=== PATIENT | male | born 1955 | race Caucasian/White ===

== ENCOUNTER → 2020-04-10 11:24 | Outpatient (BNVA) | payer MEDICARE, OTHER, SELFPAY | PROVIDERS: PCP Internal Medicine; Referring Provider Internal Medicine; Visit Provider Physician Assistant | DX: K44.9 Diaphragmatic hernia without obstruction or gangrene (principal); J44.9 Chronic obstructive pulmonary disease, unspecified | CPT/HCPCS: 99213 ==

== ENCOUNTER 2020-05-30 06:09 | Outpatient (REF) | payer MEDICARE, OTHER, SELFPAY ==
[2020-05-30 11:36] LABS: Alanine Aminotransferase 23 U/L (0-40); Albumin Level 4.3 g/dL (3.5-5.0); Alkaline Phosphatase 44 U/L (39-117); Anion Gap 13 (12-20); Aspartate Amino Transferase 19 U/L (5-37); Bilirubin Total 0.5 mg/dL (0.0-1.0); Blood Urea Nitrogen 9 mg/dL (9-16); Calcium 8.9 mg/dL (8.4-10.2); Carbon Dioxide 28 mmol/L (22-29); Chloride 97 mmol/L (96-108); Estimated Glomerular Filt Rate > 60; Glucose Fasting 150 mg/dL (60-99); Potassium 4.4 mmol/l (3.3-5.1); Sodium 134 mmol/L (135-145); Total Protein 7.4 g/dL (6.5-8.0)
[2020-05-30 11:54] LABS: Estimated Average Glucose 192 mg/dL; Hemoglobin A1c % 8.3 %
[2020-05-30 12:41] LABS: Creatinine Urine 134.73 mg/dL; Microalbum/Creatinine Ratio Ur 14.1 ug/mg cr
== END 2020-05-30 06:10 | disposition home or self-care (01) ==
LOC: HO.HMGCLDS 06:09
PROVIDERS: PCP Internal Medicine; Visit Provider Internal Medicine
DX: E11.9 Type 2 diabetes mellitus without complications (principal); I10 Essential (primary) hypertension; J42 Unspecified chronic bronchitis; R13.10 Dysphagia, unspecified
CPT/HCPCS: 80053; 82043; 83036

== ENCOUNTER → 2020-06-06 09:44 | Outpatient (BNVA) | payer MEDICARE, OTHER, SELFPAY | PROVIDERS: PCP Internal Medicine; Referring Provider Internal Medicine; Visit Provider Physician Assistant | DX: Z76.89 Persons encountering health services in other specified circumstances (principal) ==

== ENCOUNTER → 2020-06-07 08:52 | Outpatient (BNVA) | payer MEDICARE, OTHER, SELFPAY | PROVIDERS: PCP Internal Medicine; Referring Provider Internal Medicine; Visit Provider Physician Assistant | DX: Z13.89 Encounter for screening for other disorder (principal) | CPT/HCPCS: Q3014 ==

== ENCOUNTER 2020-08-10 09:24 | Day surgery (SDC) | payer MEDICARE, SELFPAY ==
[2020-06-09 12:29] VITALS: BMI 26.0
--- NOTE | 2020-08-09 09:29 | P.CONAN_ITS ---
Documented by User: Elena Rene 08/09/20 09:35 HPI - Anesthesia Eval Consult details Narrative: 65yo M for Upper Endoscopy PMFSH Active Problems Active Problems: All Active Problems (Updated 06/09/20 @ 12:25 by Deanne Argueta) Hiatal hernia (Acute) Lung nodule, solitary (Acute) HTN (hypertension) (Acute) Diabetes (Acute) Past Medical History Medical History COPD (chronic obstructive pulmonary disease) Diabetes Dysphagia Hard of hearing History of postoperative nausea and vomiting History of skull fracture HTN (hypertension) Lung nodule, solitary Family History Family History Son Diabetes 1.5, managed as type 2 Father No problems noted. Mother No problems noted. Daughter No problems noted. Brother Myocardial infarction Surgical History Surgical History (Updated 08/10/20 @ 11:01 by Subha Mei RN) History of esophagogastroduodenoscopy (EGD) History of knee replacement Hx of appendectomy Hx of cholecystectomy Hx of colonoscopy Previous back surgery Social History Social History (Updated 06/09/20 @ 12:29 by Deanne Argueta) Are you a primary doggy daycare activities director to a significant other at home: No Do you presently have visiting nurse or other home services: No Alcohol intake: current Alcohol intake frequency: holidays/special occasions only Smoking Status: Former smoker Smoking Quit Date: 2004 Use of substances other than those prescribed or required for medical reasons: No Advance Directives: No Advance Directives Information Provided: No Advance Directives on File: No Meds Allergies Allergy/AdvReac Type Severity Reaction Status Date / Time amoxicillin [AMOXICILLIN] Allergy Severe VOMITING Verified 06/09/20 12:27 Sulfa (Sulfonamide Allergy Severe HIVES Verified 06/09/20 12:27 Antibiotics) [SULFA (SULFONAMIDE ANTIBIOTICS)] lisinopril Allergy Unknown cough Verified 06/09/20 12:27 losartan Allergy Unknown hyperkalemi Verified 06/09/20 12:27 a moxifloxacin [From Avelox] Allergy Unknown Unknown Verified 06/09/20 12:27 pravastatin Allergy Unknown unknown Verified 06/05/20 08:43 rosuvastatin [Crestor] Allergy Unknown diarrhea Verified 06/05/20 08:43 sitagliptin [Januvia] Allergy Unknown stomach Verified 06/05/20 08:43 upset Home Medications Medication Instructions Recorded Confirmed Last Taken Type amlodipine 10 mg tablet 10 mg PO DAILY 04/10/20 06/09/20 Unknown History insulin glargine 100 unit/mL (3 26 unit SUBCUT QPM ml 04/10/20 06/09/20 Unknown History mL) subcutaneous pen metformin 1,000 mg tablet 1,000 mg PO BID 04/10/20 06/09/20 Unknown History bisoprolol 10 1 tab PO DAILY 06/06/20 06/09/20 Unknown History mg-hydrochlorothiazide 6.25 mg tablet [id number]-cohfptywm-mdvuaeot 1 puff INHALATION DAILY 06/09/20 06/09/20 Unknown History [Elicia Olson] Exam Exam Date and Time: August 09, 2020 0929 Height,Weight and Vital Signs: Height 6 ft Weight 87.09 kg Pertinent Lab Results Pertinent Lab Results: Laboratory Tests 02/22/20 05/30/20 06:10 06:19 WBC 10.5 Hgb 15.8 Hct 50.1 Plt Count 326 Sodium 134 L Potassium 4.4 Chloride 97 Carbon Dioxide 28 BUN 9 Creatinine 0.83 Assessment and Plan Assessment Anesthesia Assessment: Chart Reviewed Documented by User: Devon Bean MD 08/10/20 11:44 [facility] Past Medical History Medical History COPD (chronic obstructive pulmonary disease) Diabetes Dysphagia Hard of hearing History of postoperative nausea and vomiting History of skull fracture HTN (hypertension) Lung nodule, solitary Family History Family History Son Diabetes 1.5, managed as type 2 Father No problems noted. Mother No problems noted. Daughter No problems noted. Brother Myocardial infarction Surgical History Surgical History (Updated 08/10/20 @ 11:01 by Subha Mei, RN) History of esophagogastroduodenoscopy (EGD) History of knee replacement Hx of appendectomy Hx of cholecystectomy Hx of colonoscopy Previous back surgery Social History Social History (Updated 06/09/20 @ 12:29 by Deanne Argueta) Are you a primary doggy daycare activities director to a significant other at home: No Do you presently have visiting nurse or other home services: No Alcohol intake: current Alcohol intake frequency: holidays/special occasions only Smoking Status: Former smoker Smoking Quit Date: 2004 Use of substances other than those prescribed or required for medical reasons: No Advance Directives: No Advance Directives Information Provided: No Advance Directives on File: No Meds Allergies Allergy/AdvReac Type Severity Reaction Status Date / Time amoxicillin [AMOXICILLIN] Allergy Severe VOMITING Verified 06/09/20 12:27 Sulfa (Sulfonamide Allergy Severe HIVES Verified 06/09/20 12:27 Antibiotics) [SULFA (SULFONAMIDE ANTIBIOTICS)] lisinopril Allergy Unknown cough Verified 06/09/20 12:27 losartan Allergy Unknown hyperkalemi Verified 06/09/20 12:27 a moxifloxacin [From Avelox] Allergy Unknown Unknown Verified 06/09/20 12:27 pravastatin Allergy Unknown unknown Verified 06/05/20 08:43 rosuvastatin [Crestor] Allergy Unknown diarrhea Verified 06/05/20 08:43 sitagliptin [Januvia] Allergy Unknown stomach Verified 06/05/20 08:43 upset Home Medications Medication Instructions Recorded Confirmed Last Taken Type amlodipine 10 mg tablet 10 mg PO DAILY 04/10/20 06/09/20 Unknown History insulin glargine 100 unit/mL (3 26 unit SUBCUT QPM ml 04/10/20 06/09/20 Unknown History mL) subcutaneous pen metformin 1,000 mg tablet 1,000 mg PO BID 04/10/20 06/09/20 Unknown History bisoprolol 10 1 tab PO DAILY 06/06/20 06/09/20 Unknown History mg-hydrochlorothiazide 6.25 mg tablet ahrfeswkaly-etmgpvpll-vjoburns 1 puff INHALATION DAILY 06/09/20 06/09/20 Unknown History [Trelegy Ellipta] Exam Airway Mallampati Class: II TM Dist: >3cm Neck ROM: Full Loose/Missing/Broken Teeth: Yes (All caps and bridges) Heart: RRR Lungs: NL Assessment and Plan Assessment Anesthesia Assessment: Anesthesia Plan Discussed and Chart Reviewed Final Anesthetic Review NPO: Yes ASA Class: III Final Preanesthetic Review: No Changes in Pt Med Stat, Meds/Allgs Chart Reviewed, Consent Obtained/Reviewed and Anes Risks/Benef Reviewed Patient Risk: Intermediate Procedure Risk: Low Anesthetic Plan Anesthetic Plan: MAC: Disposition: Standard PACU
[2020-08-10 10:46] LABS: Glucose, Whole Blood 154 mg/dL (60-115)
[2020-08-10 11:03] VITALS: BP 160/76; PULSE 77; RESP 16; TEMP 36.3; O2SAT 97
[2020-08-10] MEDS: Lactated Ringers 1,000 ML 100 ML IVCONT (11:09)
--- NOTE | 2020-08-10 11:51 | P.HPSUR_ITS ---
Pre-Procedural Eval Section B Chief Complaint: dysphagia Relevant Family History (Specify if Yes): No Relevant Social History: None Present Medications: see Short Stay Collaborative assessment Medical History: Significant History (COPD (chronic obstructive pulmonary disease) Diabetes Dysphagia Hard of hearing History of postoperative nausea and vomiting History of skull fracture HTN (hypertension) Lung nodule, solitary) History of Previous Operations: Relevant previous surgery/procedure and date(s) (appendectomy, cholecystectomy, knee surgery) Allergies: Allergies Allergy/AdvReac Type Severity Reaction Status Date / Time amoxicillin [AMOXICILLIN] Allergy Severe VOMITING Verified 06/09/20 12:27 Sulfa (Sulfonamide Allergy Severe HIVES Verified 06/09/20 12:27 Antibiotics) [SULFA (SULFONAMIDE ANTIBIOTICS)] lisinopril Allergy Unknown cough Verified 06/09/20 12:27 losartan Allergy Unknown hyperkalemi Verified 06/09/20 12:27 a moxifloxacin [From Avelox] Allergy Unknown Unknown Verified 06/09/20 12:27 pravastatin Allergy Unknown unknown Verified 06/05/20 08:43 rosuvastatin [Crestor] Allergy Unknown diarrhea Verified 06/05/20 08:43 sitagliptin [Januvia] Allergy Unknown stomach Verified 06/05/20 08:43 upset Review of Systems Sugical H&P ROS: Negative: Constitution, Cardiovascular, Respiratory, Neurological, Psychiatric, Hem-Onc, Allergic/Immunologic, Gastrointestinal, Genitourinary, Musculoskeletal, Integumentary, Endocrine and E yes/Ears/Nose/Throat Exam Surgical H&P Exam: Normal: HEENT, Normal: Heart, Normal: Lungs, Normal: Extremities, Normal: Abdomen, Normal: Skin and Normal: Neurological Plan Diagnosis/Plan: Unchanged I have reviewed the history and physical and performed a pertinent physical examination on my patient. No changes have occurred unless specified.
--- NOTE | 2020-08-10 11:52 | PM.OP ---
Brief Operative Note Date of Service: 08/10/20 Pre-op diagnosis: dysphagia Post-op diagnosis: same Procedure: see op note Surgeon: Ave Knox MD Anesthesia: MAC Estimated blood loss (mL): 0 Condition: stable Disposition: PACU
--- NOTE | 2020-08-10 11:52 | W.PM.OPN ---
Operative Note Operative Note Date of Service: 08/10/20 Narrative: Procedure Description: EGD FLEXIBLE TRANSORAL UPPER GASTROINTESTINAL ENDOSCOPY UPPER ENDOSCOPY Consent: Indications for the procedure and potential complications of bleeding, perforation, reaction to medications and missed diagnosis were discussed with the patient and informed consent was obtained. Instrument: Olympus GIF H 190 J mid size upper endoscope Monitoring: Vital signs and clinical assessment, continuous EKG monitoring, Pulse oximetry, Carbon Dioxide monitoring and blood pressure monitoring were done throughout the procedure. Procedure: The patient was placed in the left lateral decubitis position and pre-procedure medications were administered and a bite block was placed. The endoscope was inserted into the mouth and advanced under direct vision to the third part of duodenum. A careful inspection was made as the upper endoscope was withdrawn including a retroflexed examination of the proximal stomach; Findings and interventions are described below. Findings: Larynx:normal Esophagus: GE junction at 40 cm, diaphragm hiatus at 40 cm, thickened schatzki ring with obstruction, and surrounding ulceration and esophagitis, A 12 mm balloon was used to strectch with tear noted. Higher dilation not done as a lot of resistance felt at 12 mm. Stomach: Patchy gastric erythema. Grade 2 flap valve on retroflexed examination of the cardia. Duodenum: Patchy bulbar duodenitis and swelling, had some difficulty getting to second part but got there and appeared normal. Intervention: Biopsies as noted above Impression/Findings: schatzki ring esophagitis and ulceration duodenitis PLAN: high dose PPi repeat EGD in about 4-8 weeks for further evaluation and possible repeat dilation
[2020-08-10 13:07] VITALS: BP 156/82; PULSE 77; RESP 18; TEMP 36.4; O2SAT 96
== END 2020-08-10 13:25 | disposition home or self-care (01) ==
PROVIDERS: PCP Internal Medicine; Visit Provider Internal Medicine Gastroenterology
PROC: 0DJ08ZZ Inspection of Upper Intestinal Tract, Via Natural or Artificial Opening Endoscopic (ICD-10-PCS; CPT 43235; principal; 2020-08-10 11:10)
DX: K22.2 Esophageal obstruction (principal); K22.10 Ulcer of esophagus without bleeding; K44.9 Diaphragmatic hernia without obstruction or gangrene; K29.80 Duodenitis without bleeding; J44.9 Chronic obstructive pulmonary disease, unspecified; E11.9 Type 2 diabetes mellitus without complications; I10 Essential (primary) hypertension; Z79.4 Long term (current) use of insulin; Z79.51 Long term (current) use of inhaled steroids; Z79.899 Other long term (current) drug therapy; Z90.49 Acquired absence of other specified parts of digestive tract; H91.92 Unspecified hearing loss, left ear; H91.8X1 Other specified hearing loss, right ear; Z96.653 Presence of artificial knee joint, bilateral
CPT/HCPCS: 43249; 82947; C1726

== ENCOUNTER → 2020-08-24 14:04 | Outpatient (BNVA) | payer MEDICARE, SELFPAY | PROVIDERS: PCP Internal Medicine; Visit Provider Physician Assistant | DX: Z13.89 Encounter for screening for other disorder (principal) | CPT/HCPCS: Q3014 ==

== ENCOUNTER 2020-09-05 06:18 | Outpatient (REF) | payer MEDICARE, SELFPAY ==
[2020-09-05 11:32] LABS: Estimated Average Glucose 209 mg/dL; Hemoglobin A1c % 8.9 %
[2020-09-05 11:34] LABS: Hematocrit 45.6 % (42-52); Hemoglobin 14.4 g/dl (14.0-18.0); Mean Corpuscular HGB Conc 31.6 g/dl (31.0-36.0); Mean Corpuscular Hemoglobin 27.5 pg (27.0-33.0); Mean Corpuscular Volume 87.2 fL (80-98); Mean Platelet Volume 10.9 fL (9.4-12.4); Platelet Count 408 X10*3/uL (160-400); Red Blood Count 5.23 X10*6/uL (4.60-5.80); Red Cell Distribution Width 13.3 % (11.0-16.0); White Blood Count 9.7 X10*3/uL (4.8-10.8)
[2020-09-05 11:44] LABS: Alanine Aminotransferase 28 U/L (0-40); Albumin Level 4.3 g/dL (3.5-5.0); Alkaline Phosphatase 45 U/L (39-117); Anion Gap 15 (12-20); Aspartate Amino Transferase 22 U/L (5-37); Bilirubin Total 0.6 mg/dL (0.0-1.0); Blood Urea Nitrogen 12 mg/dL (9-16); Calcium 8.9 mg/dL (8.4-10.2); Carbon Dioxide 28 mmol/L (22-29); Chloride 99 mmol/L (96-108); Cholesterol 169 mg/dL; Estimated Glomerular Filt Rate > 60; Glucose Fasting 184 mg/dL (60-99); HDL Cholesterol 39 mg/dL; LDL Cholesterol Calculated 70 mg/dl; Potassium 4.7 mmol/L (3.3-5.1); Sodium 137 mmol/L (135-145); Total Protein 7.2 g/dL (6.5-8.0); Triglycerides 304 mg/dL
[2020-09-05 12:05] LABS: Creatinine Urine 114.78 mg/dL; Microalbum/Creatinine Ratio Ur 37.4 ug/mg cr
== END 2020-09-05 06:19 | disposition home or self-care (01) ==
LOC: HO.HMGCLDS 06:18
PROVIDERS: PCP Internal Medicine; Visit Provider Internal Medicine
DX: I10 Essential (primary) hypertension (principal); E11.9 Type 2 diabetes mellitus without complications
CPT/HCPCS: 36415; 80053; 80061; 82043; 83036; 85027

== ENCOUNTER 2020-10-25 09:13 | Day surgery (SDC) | payer MEDICARE, SELFPAY ==
[2020-10-19 12:42] VITALS: BMI 27.2
--- NOTE | 2020-10-24 10:17 | P.CONAN_ITS ---
Documented by User: Elena Anju 10/24/20 10:18 HPI - Anesthesia Eval Consult details Narrative: 65yo M for Upper Endoscopy s/p EGD and dilation with TIVA 07/2020 [facility] Active Problems Active Problems: All Active Problems (Updated 09/12/20 @ 10:48 by Marisel To MD) Hiatal hernia (Acute) Schatzki's ring (Acute) COPD (chronic obstructive pulmonary disease) (Acute) Hyperlipidemia (Acute) Lung nodule, solitary (Acute) HTN (hypertension) (Acute) Diabetes (Acute) Past Medical History Medical History COPD (chronic obstructive pulmonary disease) Diabetes Dysphagia Hard of hearing History of postoperative nausea and vomiting History of skull fracture HTN (hypertension) Hyperlipidemia Lung nodule, solitary Family History Family History Son Diabetes 1.5, managed as type 2 Father No problems noted. Mother No problems noted. Daughter No problems noted. Brother Myocardial infarction Surgical History Surgical History (Updated 10/19/20 @ 12:22 by Adriana Alexander) History of endoscopy History of esophagogastroduodenoscopy (EGD) History of knee replacement Hx of appendectomy Hx of cholecystectomy Hx of colonoscopy Previous back surgery Social History Social History (Updated 08/24/20 @ 14:08 by Radha Redman [facility]) Household Members: None Are you a primary reservoir caretaker to a significant other at home: No Do you presently have visiting nurse or other home services: No Alcohol intake: current Alcohol intake frequency: holidays/special occasions only Alcohol type: beer and wine Smoking Status: Former smoker Smoking Quit Date: 2004 Use of substances other than those prescribed or required for medical reasons: No Have you been hit, kicked, punched, or otherwise hurt by someone within the past year? If so, by whom?: No Are you DNR?: No Advance Directives: No Advance Directives Information Provided: No Advance Directives on File: No Recently lost weight without trying: No Eating poorly because of decreased appetite: No Nutrition Risks: Difficulty swallowing Current occupational status: retired Meds Allergies Allergy/AdvReac Type Severity Reaction Status Date / Time amoxicillin [AMOXICILLIN] Allergy Severe VOMITING Verified 10/19/20 12:17 Sulfa (Sulfonamide Allergy Severe HIVES Verified 10/19/20 12:17 Antibiotics) [SULFA (SULFONAMIDE ANTIBIOTICS)] lisinopril Allergy Unknown cough Verified 10/19/20 12:17 losartan Allergy Unknown hyperkalemi Verified 10/19/20 12:17 a moxifloxacin [From Avelox] Allergy Unknown Unknown Verified 10/19/20 12:17 pravastatin Allergy Unknown unknown Verified 10/19/20 12:17 rosuvastatin [Crestor] Allergy Unknown diarrhea Verified 10/19/20 12:17 sitagliptin [Januvia] Allergy Unknown stomach Verified 10/19/20 12:17 upset Home Medications Medication Instructions Recorded Confirmed Last Taken Type insulin glargine 100 unit/mL (3 26 unit SUBCUT QPM ml 04/10/20 10/19/20 Unknown History mL) subcutaneous pen albuterol sulfate 1 puff PO Q4H PRN 10/19/20 10/19/20 Unknown History fqeqoxfzyok-qwtnyhaaw-iswyihrv 1 puff INHALATION DAILY 10/19/20 10/19/20 Unknown History [Elicia Olson] Exam Exam Date and Time: October 24, 2020 1017 Height,Weight and Vital Signs: Height 6 ft Weight 91.172 kg Assessment and Plan Assessment Anesthesia Assessment: Chart Reviewed Documented by User: Maria E Zamarripa 10/25/20 09:49 [facility] Past Medical History Medical History COPD (chronic obstructive pulmonary disease) Diabetes Dysphagia Hard of hearing History of postoperative nausea and vomiting History of skull fracture HTN (hypertension) Hyperlipidemia Lung nodule, solitary Family History Family History Son Diabetes 1.5, managed as type 2 Father No problems noted. Mother No problems noted. Daughter No problems noted. Brother Myocardial infarction Surgical History Surgical History (Updated 10/19/20 @ 12:22 by Adriana Alexander) History of endoscopy History of esophagogastroduodenoscopy (EGD) History of knee replacement Hx of appendectomy Hx of cholecystectomy Hx of colonoscopy Previous back surgery Social History Social History (Updated 08/24/20 @ 14:08 by Radha Redman CMA) Household Members: None Are you a primary reservoir caretaker to a significant other at home: No Do you presently have visiting nurse or other home services: No Alcohol intake: current Alcohol intake frequency: holidays/special occasions only Alcohol type: beer and wine Smoking Status: Former smoker Smoking Quit Date: 2004 Use of substances other than those prescribed or required for medical reasons: No Have you been hit, kicked, punched, or otherwise hurt by someone within the past year? If so, by whom?: No Are you DNR?: No Advance Directives: No Advance Directives Information Provided: No Advance Directives on File: No Recently lost weight without trying: No Eating poorly because of decreased appetite: No Nutrition Risks: Difficulty swallowing Current occupational status: retired Meds Allergies Allergy/AdvReac Type Severity Reaction Status Date / Time amoxicillin [AMOXICILLIN] Allergy Severe VOMITING Verified 10/19/20 12:17 Sulfa (Sulfonamide Allergy Severe HIVES Verified 10/19/20 12:17 Antibiotics) [SULFA (SULFONAMIDE ANTIBIOTICS)] lisinopril Allergy Unknown cough Verified 10/19/20 12:17 losartan Allergy Unknown hyperkalemi Verified 10/19/20 12:17 a moxifloxacin [From Avelox] Allergy Unknown Unknown Verified 10/19/20 12:17 pravastatin Allergy Unknown unknown Verified 10/19/20 12:17 rosuvastatin [Crestor] Allergy Unknown diarrhea Verified 10/19/20 12:17 sitagliptin [Januvia] Allergy Unknown stomach Verified 10/19/20 12:17 upset Home Medications Medication Instructions Recorded Confirmed Last Taken Type insulin glargine 100 unit/mL (3 26 unit SUBCUT QPM ml 04/10/20 10/19/20 Unknown History mL) subcutaneous pen albuterol sulfate 1 puff PO Q4H PRN 10/19/20 10/19/20 Unknown History jufrmoynpmf-mandsbkno-ijyusdbg 1 puff INHALATION DAILY 10/19/20 10/19/20 Unknown History [Trelegy Ellipta] Exam Airway Mallampati Class: II (Mulitipke caps) TM Dist: >3cm Neck ROM: Full Heart: RRR Lungs: CTA Assessment and Plan Assessment Anesthesia Assessment: Anesthesia Plan Discussed and Chart Reviewed Final Anesthetic Review NPO: Yes ASA Class: III Final Preanesthetic Review: No Changes in Pt Med Stat and Consent Obtain ed/Reviewed Patient Risk: Intermediate Procedure Risk: Intermediate Anesthetic Plan Anesthetic Plan: MAC: Disposition: Standard PACU
--- NOTE | 2020-10-25 09:41 | P.HPSUR_ITS ---
Pre-Procedural Eval Section B Chief Complaint: Schatzki Ring Relevant Family History (Specify if Yes): No Relevant Social History: None Present Medications: see Short Stay Collaborative assessment Medical History: Significant History (COPD (chronic obstructive pulmonary disease) Diabetes Dysphagia Hard of hearing History of postoperative nausea and vomiting History of skull fracture HTN (hypertension) Hyperlipidemia Lung nodule, solitary) History of Previous Operations: Relevant previous surgery/procedure and date(s) (History of endoscopy History of esophagogastroduodenoscopy (EGD) History of knee replacement Hx of appendectomy Hx of cholecystectomy Hx of colonoscopy Previous back surgery) Allergies: Allergies Allergy/AdvReac Type Severity Reaction Status Date / Time amoxicillin [AMOXICILLIN] Allergy Severe VOMITING Verified 10/19/20 12:17 Sulfa (Sulfonamide Allergy Severe HIVES Verified 10/19/20 12:17 Antibiotics) [SULFA (SULFONAMIDE ANTIBIOTICS)] lisinopril Allergy Unknown cough Verified 10/19/20 12:17 losartan Allergy Unknown hyperkalemi Verified 10/19/20 12:17 a moxifloxacin [From Avelox] Allergy Unknown Unknown Verified 10/19/20 12:17 pravastatin Allergy Unknown unknown Verified 10/19/20 12:17 rosuvastatin [Crestor] Allergy Unknown diarrhea Verified 10/19/20 12:17 sitagliptin [Januvia] Allergy Unknown stomach Verified 10/19/20 12:17 upset Review of Systems Sugical H&P ROS: Negative: Constitution, Cardiovascular, Respiratory, Neurological, Psychiatric, Hem-Onc, Allergic/Immunologic, Gastrointestinal, Genitourinary, Musculoskeletal, Integumentary, Endocrine and Eyes/Ears/Nose/Throat Exam Surgical H&P Exam: Normal: HEENT, Normal: Heart, Normal: Lungs, Normal: Extremit ies, Normal: Abdomen, Normal: Skin and Normal: Neurological Plan Diagnosis/Plan: Unchanged I have reviewed the history and physical and performed a pertinent physical examination on my patient. No changes have occurred unless specified.
[2020-10-25 09:46] VITALS: BP 126/74; PULSE 88; RESP 20; TEMP 36.6; O2SAT 95
[2020-10-25 09:46] LABS: Glucose, Whole Blood 180 mg/dL (60-115)
[2020-10-25] MEDS: Lactated Ringers 1,000 ML 100 ML IVCONT (09:57)
--- NOTE | 2020-10-25 10:58 | P.BOP_ITS ---
Brief Operative Note Date of Service: 10/25/20 Pre-op diagnosis: dysphagia Post-op diagnosis: same Procedure: see op note Surgeon: Ave Knox MD Anesthesia: MAC Was an Distribution Sales Manager used for this Procedure?: No Estimated blood loss (mL): 0 Condition: stable Disposition: PACU
--- NOTE | 2020-10-25 10:59 | P.OP_ITS ---
Operative Note Operative Note Date of Service: 10/25/20 Narrative: Procedure Description: EGD FLEXIBLE TRANSORAL UPPER GASTROINTESTINAL ENDOSCOPY UPPER ENDOSCOPY Consent: Indications for the procedure and potential complications of bleeding, perforation, reaction to medications and missed diagnosis were discussed with the patient and informed consent was obtained. Instrument: Olympus GIF H 190 J mid size upper endoscope Monitoring: Vital signs and clinical assessment, continuous EKG monitoring, Pulse oximetry, Carbon Dioxide monitoring and blood pressure monitoring were done throughout the procedure. Procedure: The patient was placed in the left lateral decubitis position and pre-procedure medications were administered and a bite block was placed. The endoscope was inserted into the mouth and advanced under direct vision to the third part of duodenum. A careful inspection was made as the upper endoscope was withdrawn including a retroflexed examination of the proximal stomach; Findings and interventions are described below. Findings: Larynx:normal Esophagus: GE junction at 40 cm, diaphragm hiatus at 40 cm, maceration and ulceration at the GEJ with erosion noted, LA grade D erosive esophagitis. Dilated using 14 mm balloon with tear noted, bx also taken . Stomach: Normal mucosa. Grade 2 flap valve on retroflexed examination of the cardia. Duodenum: Normal bulb and descending duodenum, slightly tortuous Intervention: Biopsies as noted above and balloon dilation Impression/Findings: LA grade D esophagitis and stricture PLAN: Recommence omeprazole 40 mg and repeat EGD in 3-6 months to make sure no u nderlying barretts
[2020-10-25 11:03] VITALS: BP 105/59; PULSE 84; RESP 16; TEMP 36.2; O2SAT 98
[2020-10-25 11:18] VITALS: BP 105/65; PULSE 80; RESP 18; O2SAT 94
[2020-10-25 11:27] LABS: Glucose, Whole Blood 157 mg/dL (60-115)
[2020-10-25 11:33] VITALS: BP 98/65; PULSE 80; RESP 18; O2SAT 95
[2020-10-25 11:48] VITALS: BP 115/70; PULSE 78; RESP 18; O2SAT 95
--- NOTE | 2020-10-25 13:38 | PC.NURSE ---
1155 MONITORS AND IVF DCD ASST OOB CH STEADY IV DCD DRESSED SELF AT BS CALL QUESADA IN REACH, PLAN AMB TO DC
== END 2020-10-25 12:48 | disposition home or self-care (01) ==
PROVIDERS: PCP Internal Medicine; Visit Provider Internal Medicine Gastroenterology
PROC: 0DJ08ZZ Inspection of Upper Intestinal Tract, Via Natural or Artificial Opening Endoscopic (ICD-10-PCS; CPT 43235; principal; 2020-10-25 10:50)
DX: K22.2 Esophageal obstruction (principal); K20.80 Other esophagitis without bleeding; K44.9 Diaphragmatic hernia without obstruction or gangrene; I10 Essential (primary) hypertension; J44.9 Chronic obstructive pulmonary disease, unspecified; R91.1 Solitary pulmonary nodule; E11.9 Type 2 diabetes mellitus without complications; Z79.4 Long term (current) use of insulin; Z79.899 Other long term (current) drug therapy; Z90.49 Acquired absence of other specified parts of digestive tract; Z88.0 Allergy status to penicillin; Z88.2 Allergy status to sulfonamides; Z88.8 Allergy status to other drugs, medicaments and biological substances; Z87.891 Personal history of nicotine dependence
CPT/HCPCS: 43249; 43239; 82947; 88305; C1726

== ENCOUNTER 2020-12-05 06:29 | Outpatient (REF) | payer MEDICARE, SELFPAY ==
[2020-12-05 11:55] LABS: Estimated Average Glucose 209 mg/dL; Hemoglobin A1c % 8.9 %
[2020-12-05 12:03] LABS: Alanine Aminotransferase 30 U/L (0-40); Albumin Level 4.3 g/dL (3.5-5.0); Alkaline Phosphatase 54 U/L (39-117); Anion Gap 17 (12-20); Aspartate Amino Transferase 23 U/L (5-37); Bilirubin Total 0.4 mg/dL (0.0-1.0); Blood Urea Nitrogen 9 mg/dL (9-16); Calcium 9.3 mg/dL (8.4-10.2); Carbon Dioxide 24 mmol/L (22-29); Chloride 101 mmol/L (96-108); Cholesterol 157 mg/dL; Estimated Glomerular Filt Rate > 60; Glucose Fasting 192 mg/dL (60-99); HDL Cholesterol 39 mg/dL; LDL Cholesterol Calculated 75 mg/dl; Sodium 137 mmol/L (135-145); Total Protein 7.3 g/dL (6.5-8.0); Triglycerides 218 mg/dL
[2020-12-05 12:18] LABS: Creatinine Urine 87.73 mg/dL; Microalbum/Creatinine Ratio Ur 14.8 ug/mg cr
== END 2020-12-05 06:30 | disposition home or self-care (01) ==
LOC: HO.HMGCLDS 06:29
PROVIDERS: PCP Internal Medicine; Visit Provider Internal Medicine
DX: K22.2 Esophageal obstruction (principal); E11.9 Type 2 diabetes mellitus without complications; I10 Essential (primary) hypertension; E78.5 Hyperlipidemia, unspecified; J44.9 Chronic obstructive pulmonary disease, unspecified
CPT/HCPCS: 36415; 80053; 80061; 82043; 83036

== ENCOUNTER 2021-03-07 06:01 | Outpatient (REF) | payer MEDICARE, SELFPAY ==
[2021-03-07 12:02] LABS: Alanine Aminotransferase 27 U/L (0-40); Albumin Level 4.3 g/dL (3.5-5.0); Alkaline Phosphatase 45 U/L (39-117); Anion Gap 15 (12-20); Aspartate Amino Transferase 23 U/L (5-37); Bilirubin Total 0.5 mg/dL (0.0-1.0); Blood Urea Nitrogen 13 mg/dL (9-16); Calcium 9.2 mg/dL (8.4-10.2); Carbon Dioxide 25 mmol/L (22-29); Chloride 104 mmol/L (96-108); Estimated Glomerular Filt Rate > 60; Glucose Fasting 165 mg/dL (60-99); Potassium 4.6 mmol/L (3.3-5.1); Sodium 139 mmol/L (135-145)
[2021-03-07 12:56] LABS: Estimated Average Glucose 192 mg/dL; Hemoglobin A1c % 8.3 %
== END 2021-03-07 06:02 | disposition home or self-care (01) ==
LOC: HO.HMGCLDS 06:01
PROVIDERS: PCP Internal Medicine; Visit Provider Internal Medicine
DX: E11.9 Type 2 diabetes mellitus without complications (principal); I10 Essential (primary) hypertension; E78.5 Hyperlipidemia, unspecified
CPT/HCPCS: 36415; 80053; 83036

== ENCOUNTER 2021-06-14 09:38 | Outpatient (REF) | payer SELFPAY | END 2021-06-14 09:39 | disposition home or self-care (01) | LOC: HO.HAP 09:38 | PROVIDERS: Visit Provider Internal Medicine | DX: Z46.1 Encounter for fitting and adjustment of hearing aid (principal); H90.3 Sensorineural hearing loss, bilateral | CPT/HCPCS: 99499 ==

== ENCOUNTER 2021-07-10 06:01 | Outpatient (REF) | payer MEDICARE, SELFPAY ==
[2021-07-10 11:36] LABS: Estimated Average Glucose 186 mg/dL; Hemoglobin A1c % 8.1 %
[2021-07-10 12:11] LABS: Alanine Aminotransferase 25 U/L (0-40); Alkaline Phosphatase 49 U/L (39-117); Anion Gap 15 (12-20); Aspartate Amino Transferase 19 U/L (5-37); Bilirubin Total 0.4 mg/dL (0.0-1.0); Blood Urea Nitrogen 11 mg/dL (9-16); Carbon Dioxide 25 mmol/L (22-29); Chloride 101 mmol/L (96-108); Cholesterol 153 mg/dL; Estimated Glomerular Filt Rate > 60; Glucose Fasting 171 mg/dL (60-99); HDL Cholesterol 35 mg/dL; LDL Cholesterol Calculated 86 mg/dl; Potassium 4.4 mmol/L (3.3-5.1); Sodium 137 mmol/L (135-145); Triglycerides 162 mg/dL
== END 2021-07-10 06:02 | disposition home or self-care (01) ==
LOC: HO.HMGCLDS 06:01
PROVIDERS: Visit Provider Internal Medicine
DX: E11.9 Type 2 diabetes mellitus without complications (principal); E78.5 Hyperlipidemia, unspecified; I10 Essential (primary) hypertension
CPT/HCPCS: 36415; 80053; 80061; 83036

== ENCOUNTER 2021-10-06 06:33 | Outpatient (REF) | payer MEDICARE, SELFPAY ==
[2021-10-06 11:38] LABS: Hematocrit 43.8 % (42.0-52.0); Hemoglobin 14.5 g/dl (14.0-18.0); Mean Corpuscular HGB Conc 33.1 g/dl (31.0-36.0); Mean Corpuscular Hemoglobin 28.1 pg (27.0-33.0); Mean Corpuscular Volume 84.9 fL (80.0-98.0); Mean Platelet Volume 11.3 fL (9.4-12.4); Platelet Count 324 X10*3/uL (160-400); Red Blood Count 5.16 X10*6/uL (4.60-5.80); Red Cell Distribution Width 12.7 % (11.0-16.0); White Blood Count 11.2 X10*3/uL (4.8-10.8)
[2021-10-06 11:46] LABS: Alanine Aminotransferase 20 U/L (0-40); Alkaline Phosphatase 59 U/L (39-117); Anion Gap 14 (12-20); Aspartate Amino Transferase 16 U/L (5-37); Bilirubin Total 0.8 mg/dL (0.0-1.0); Blood Urea Nitrogen 9 mg/dL (9-16); Calcium 9.1 mg/dL (8.4-10.2); Carbon Dioxide 25 mmol/L (22-29); Chloride 102 mmol/L (96-108); Cholesterol 171 mg/dL; Estimated Glomerular Filt Rate > 60; Glucose Fasting 190 mg/dL (60-99); HDL Cholesterol 40 mg/dL; LDL Cholesterol Calculated 88 mg/dl; Sodium 137 mmol/L (135-145); Triglycerides 218 mg/dL
[2021-10-06 11:55] LABS: Estimated Average Glucose 235 mg/dL; Hemoglobin A1c % 9.8 %
== END 2021-10-06 06:34 | disposition home or self-care (01) ==
LOC: HO.HMGCLDS 06:33
PROVIDERS: PCP Internal Medicine; Visit Provider Internal Medicine
DX: E11.9 Type 2 diabetes mellitus without complications (principal); E78.5 Hyperlipidemia, unspecified; I10 Essential (primary) hypertension
CPT/HCPCS: 36415; 80053; 80061; 83036; 85027

== ENCOUNTER 2021-10-08 10:17 | Emergency (ER) | payer MEDICARE, SELFPAY ==
[2021-10-08] VITALS (7 sets, daily range): BP systolic 147–165; BP diastolic 53–78; PULSE 72–88; RESP 16–18; TEMP 36.2–36.9; O2SAT 95–97; BMI 27.2
--- NOTE | ~2021-10-08 | US_ITS ---
EXAMINATION: US VENOUS WITH DOPPLER UPPER EXTREMITY, LEFT CLINICAL INFORMATION: Left hand swelling. Rule out DVT. COMPARISON: None TECHNIQUE: Ultrasound of the upper extremity is performed using compression sonography and color and pulse Doppler flow with assessment of augmentation of flow. There is also imaging and Doppler assessment of the jugular and subclavian veins. Spectral analysis with color-flow imaging is performed. FINDINGS: Respiratory variation, normal compression, and augmented flow are noted throughout the upper extremity including the axillary, brachial, cubital, and radial and ulnar veins. There is normal flow in the internal jugular and subclavian veins. There is no visible deep or superficial thrombophlebitis. If the patient's symptoms progress, a followup ultrasound in 5 -7 days might be of value to exclude proximal propagation from a nonvisualized distal arm vein. US/US venous duplex UE LT IMPRESSION: No DVT demonstrated in left arm
--- NOTE | ~2021-10-08 | US_ITS ---
EXAMINATION: LEFT UPPER EXTREMITY ARTERIAL DOPPLER ULTRASOUND Interventional Radiologist: Juan Farfan M.D., F.S.I.R., F.A.C.R. CLINICAL INFORMATION: This is a 66-year-old male with left upper extremity swelling, cold hand, possible acute thrombus. COMPARISON: None TECHNIQUE: Color-flow duplex imaging with spectral waveform analysis was performed. Attempts were made to evaluate for occlusive thrombus. FINDINGS: The proximal left subclavian artery velocity is 49 cm/s and biphasic. The mid left subclavian artery could not be visualized due to the overlying clavicle. The distal left subclavian artery could not be visualized due to the overlying clavicle. The left axillary artery velocity is 31 cm/s and monophasic. The proximal left brachial artery is 41 cm/s and triphasic. The mid left brachial artery is 42 cm/s and triphasic. The distal left brachial artery is 35 cm/s and triphasic. The left radial artery measures 28 cm/s and monophasic. The proximal left ulnar artery appears to be partially occluded. The distal left ulnar artery appears to be partially occluded beginning at the antecubital fossa extending down to the wrist. The distal left ulnar artery appears to be occluded. There may be flow in the distal ulnar artery. An arrhythmia was noted during the Doppler portion of the examination. US/US arterial duplex UE LT IMPRESSION: 1. There is probable acute occlusion of the left ulnar artery beginning at the left antecubital fossa and extending down to the level of the wrist.
--- NOTE | 2021-10-08 12:06 | ECG_ITS ---
Test Reason : ARM PAIN Blood Pressure : / mmHG Vent. Rate : 083 BPM Atrial Rate : 083 BPM P-R Int : 166 ms QRS Dur : 076 ms QT Int : 366 ms P-R-T Axes : 061 037 058 degrees QTc Int : 430 ms Sinus rhythm with occasional Premature ventricular complexes Otherwise normal ECG When compared with ECG of 24-APR-2013 10:26, Premature ventricular complexes are now Present Referred By: Generic ED Physician Electronically Signed By:KASIA CARRASCO MD
--- NOTE | 2021-10-08 14:41 | ED.EXTPRO ---
HPI - Extremity Problem General Chief complaint: Extremity Injury, Upper Stated complaint: L hand pain/blood clot? Time Seen by Provider: 10/08/21 12:05 Source: patient Mode of arrival: ambulatory Limitations: no limitations History of Present Illness HPI Narrative: 66 years old male came in for evaluation of cool and numbness of left hand since yesterday. 66-year-old male was past medical history significant for COPD, diabetes. Two days ago patient ate shrimp caused him to have abdominal pain and vomiting, felt tired went to sleep when he woke up next morning (yesterday morning) he felt his left hand cool and numb and pale. Patient did not seek medical attention yesterday weighted next day and come to the emergency department for further evaluation. Patient declined any history of blood clots, no history of atrial fibrillation, patient is not taking anticoagulation therapy. Declined any trauma to the left upper extremities. Related Data Home Medications Medication Instructions Recorded Confirmed insulin glargine 100 unit/mL (3 40 unit SUBCUT QPM ml 12/12/20 09/05/21 mL) subcutaneous pen (Basaglar KwikPen U-100 Insulin) omega-3 fatty acids 1,000 mg 1,000 mg PO DAILY 12/12/20 09/05/21 capsule (Fish Oil Concentrate) Previous Rx's Medication Instructions Recorded blood-glucose meter (Tueborauch #1 ea 03/13/21 Ultra2 Meter) albuterol sulfate 90 mcg/actuation 2 puff INHALATION QID PRN #8.5 g 07/13/21 aerosol inhaler omeprazole 40 mg capsule,delayed 40 mg PO DAILY #90 cap 09/05/21 release amlodipine 10 mg tablet 10 mg PO DAILY #90 tab 09/07/21 bisoprolol 10 1 tab PO DAILY #90 tab 09/07/21 mg-hydrochlorothiazide 6.25 mg tablet metformin 1,000 mg tablet 1,000 mg PO BID #180 tab 09/07/21 fluticasone fur. 100 mcg-umeclid 1 ea INHALATION DAILY #180 ea 09/24/21 62.5 mcg-vilant 25 mcg inhalat.powder (Trelegy Ellipta) Allergies Allergy/AdvReac Type Severity Reaction Status Date / Time amoxicillin [AMOXICILLIN] Allergy Severe VOMITING Verified 09/05/21 13:30 Sulfa (Sulfonamide Allergy Severe HIVES Verified 03/16/22 13:30 Antibiotics) [SULFA (SULFONAMIDE ANTIBIOTICS)] lisinopril Allergy Unknown cough Verified 09/05/21 13:30 losartan Allergy Unknown hyperkalemi Verified 09/05/21 13:30 a moxifloxacin [From Avelox] Allergy Unknown Pt does Verified 09/05/21 13:30 not remeber pravastatin Allergy Unknown diarrhea Verified 09/05/21 13:30 rosuvastatin [Crestor] Allergy Unknown diarrhea Verified 07/13/21 08:25 sitagliptin [Januvia] Allergy Unknown stomach Verified 07/13/21 08:25 upset Review of Systems Review of Systems: All other systems are reviewed and are negative Constitutional: Reports as per HPI and Reports no additional constitutional complaints Eyes: Reports as per HPI and Reports no additional eye complaints Reports system reviewed and no additional complaints, except as documented Cardiovascular: Reports as per HPI and Reports no additional cardiovascular complaints Respiratory: Reports as per HPI and Reports no additional respiratory complaints Gastrointestinal: Reports as per HPI and Reports no additional gastrointestinal complaints Genitourinary: Reports no additional female genitourinary complaints Musculoskeletal: Reports no additional musculoskeletal complaints Skin/Breast: Reports system reviewed and no additional complaints, except as docu Psychiatric: Reports no additional psychiatric complaints Endocrine: Reports no additional endocrine complaints Hematologic/Lymphatic: Reports no additional hematologic/lymphatic complaints Allergic/Immunologic: Reports no additional allergic/immunologic complaints Reports system reviewed and no additional complaints, except as documented and Reports Abnormal speech present [facility] Past Medical History Medical History Claudication COPD (chronic obstructive pulmonary disease) Diabetes Dysphagia Hard of hearing History of postoperative nausea and vomiting HTN (hypertension) Hyperlipidemia Lung nodule, solitary Surgical History History of endoscopy History of esophagogastroduodenoscopy (EGD) History of knee replacement Hx of appendectomy Hx of cholecystectomy Hx of colonoscopy Previous back surgery Family History Family History Son Diabetes 1.5, managed as type 2 Father No problems noted. Mother No problems noted. Daughter No problems noted. Brother Myocardial infarction Social History Social History Household Members: None Housing: House Are you a primary school child care attendant to a significant other at home: No Do you presently have visiting nurse or other home services: No Alcohol intake: current Alcohol intake frequency: holidays/special occasions only Alcohol type: beer and wine Patient Tobacco Use Status: Former Tobacco user Cigarette Packs Per Day: 2.5 Years Smoked: 30 e-Cigarette/Vaping Use: Never Used Second Hand Smoke Exposure: No Advance Directives: No Advance Directives Information Provided: No service: No Current occupational status: retired Current occupational exposures/hazards: No Physical Exam Vital Signs: Vital Signs: Last Vital Signs Temp 98.5 F 10/08/21 15:21 Pulse 77 10/08/21 15:21 Resp 16 10/08/21 15:21 BP 155/78 H 10/08/21 15:21 Pulse Ox 96 10/08/21 15:21 BMI result Body Mass Index 27.2 Vital signs have been reviewed as appeared to be correct. Blood pressure normal. Heart rate normal. Respiration rate normal. Temperature normal. Oxygen saturation normal. Appearance: Alert. Oriented X3. No acute distress. Head: Normal external exam. Normocephalic. Atraumatic. No Alcaraz signs noted. No raccoon eyes noted Eyes: PERRLA. EOMI. Conjunctiva and sclera normal. Eyelids normal. ENT: TM's Normal. Pharynx normal. Uvula midline. Moist mucous membranes. No trismus noted. No drooling noted. No muffled voice noted. Neck: Normal inspection. Neck supple. FROM. No adenopathy. Thyroid Normal. No meningeal signs. No neck mass noted. CVS: Normal heart rate and rhythm. Heart sound normal. No murmurs noted. Pulses normal throughout. Respiratory: No respiratory distress. Painless inspiration. Breath sounds normal. No wheezes/rales/rhonchi noted. Chest nontender. No accessory muscle usage noted or decreased air movement noted. Abdomen: Soft and nontender. Bowel sounds normal in all 4 quadrants. No distention noted. No organomegaly noted. No visible injury noted. Back: No CVA tenderness. Full range of motion noted. Skin: Skin warm and dry. Normal skin color. Normal skin turgor. No rashes/lesions/lacerations noted. Extremities: Left upper extremities exam: Left hand is cool and pale with delayed cap refill, able to move left hand in full range of motion, left radial artery is palpable, no dry gangrene is appreciated. Neuro: Oriented X 3. Cranial nerve exam: II-XII are grossly intact No motor deficit. No sensory deficit. Reflexes normal. Course Course Course Narrative: Assessment and plan. 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 Case discussed with Dr. Troncoso who recommended to start heparin with bolus and transferred the patient to another facility since it is a holiday and we are not equipped to do intra arterial vascular embolectomy/thrombectomy. [facility] is closed for transfer today, case discussed with [facility] vascular surgery who accepted the patient to go to the ED for further evaluation. Will start the patient on heparin and arrange for ALS transportation. Patient found to have elevated high sensitive troponin with nonischemic EKG, patient again confirms that he did not have chest pain any time recently in the past week. MDM - Extremity (Nontraumatic) Lab Data Attestation: I reviewed the patient's lab results. Result diagrams: 10/08/21 15:27 10/08/21 15:27 Labs: Lab Results 10/08/21 10/08/21 10/08/21 Range/Units 15:27 15:27 15:27 WBC 11.6 H (4.8-10.8) X10*3/uL RBC 5.34 (4.60-5.80) X10*6/uL Hgb 14.8 (14.0-18.0) g/dl Hct 44.5 (42.0-52.0) % MCV 83.3 (80.0-98.0) fL MCH 27.7 (27.0-33.0) pg MCHC 33.3 (31.0-36.0) g/dl RDW 12.7 (11.0-16.0) % Plt Count 278 (160-400) X10*3/uL MPV 10.2 (9.4-12.4) fL Immature Gran % (Auto) 0.4 (0.0-0.4) % Neut % (Auto) 58.3 (45-73) % Lymph % (Auto) 26.3 (20-40) % Slope % (Auto) 9.0 (2-11) % Eos % (Auto) 5.7 H (0-4) % Baso % (Auto) 0.3 (0-2) % Lymph # (Auto) 3.1 (1.2-4.9) X10*3/uL Slope # (Auto) 1.0 (0.1-1.2) X10*3/uL Eos # (Auto) 0.7 H (0.0-0.4) X10*3/uL Baso # (Auto) 0.0 (0.0-0.2) X10*3/uL Abs Immat Gran (auto) 0.05 H (0.00-0.03) X10*3/uL Absolute Neuts (auto) 6.8 (2.0-8.3) x10*3/uL Absolute Nucleated RBC 0.000 (0.0-0.012) X10*3/uL Nucleated RBC % (auto) 0.0 (0.0-0.2) /100WBC PT 12.4 (9.9-13.0) SEC INR 1.1 (0.9-1.1) APTT 31.3 (24.1-38.0) SEC aPTT Heparin Protocol (53-77.9) SEC Sodium 136 (135-145) mmol/L Potassium 4.4 (3.3-5.1) mmol/L Chloride 102 (96-108) mmol/L Carbon Dioxide 23 (22-29) mmol/L Anion Gap 15 (12-20) BUN 15 D (9-16) mg/dL Creatinine 0.90 (0.5-1.4) mg/dL Estim Creat Clear Calc 86.2 Estimated GFR > 60 Random Glucose 208 H (60-115) mg/dL Calcium 9.5 (8.4-10.2) mg/dL Total Bilirubin 0.4 (0.0-1.0) mg/dL Direct Bilirubin < 0.2 (0.0-0.5) mg/dL AST 27 D (5-37) U/L ALT 23 (0-40) U/L Alkaline Phosphatase 54 (39-117) U/L Troponin I High Sens (<3.5-35.0) ng/L Total Protein 7.4 (6.5-8.0) g/dL Albumin 4.1 (3.5-5.0) g/dL Lipase 35 (8-78) U/L Urine Color Urine Appearance Urine pH (5.0-8.0) Ur Specific [place] (1.005-1.025) Urine Protein (NEG-TRACE) MG/DL Urine Glucose (UA) (NEG) MG/DL Urine Ketones (NEG) MG/DL Urine Blood (NEG) Urine Nitrite (NEG) Ur Leukocyte Esterase (NEG) COVID-19 (TORY) (Negative) COVID-19 Clin Com 10/08/21 10/08/21 10/08/21 Range/Units 15:27 15:27 15:33 WBC (4.8-10.8) X10*3/uL RBC (4.60-5.80) X10*6/uL Hgb (14.0-18.0) g/dl Hct (42.0-52.0) % MCV (80.0-98.0) fL MCH (27.0-33.0) pg MCHC (31.0-36.0) g/dl RDW (11.0-16.0) % Plt Count (160-400) X10*3/uL MPV (9.4-12.4) fL Immature Gran % (Auto) (0.0-0.4) % Neut % (Auto) (45-73) % Lymph % (Auto) (20-40) % Slope % (Auto) (2-11) % Eos % (Auto) (0-4) % Baso % (Auto) (0-2) % Lymph # (Auto) (1.2-4.9) X10*3/uL Slope # (Auto) (0.1-1.2) X10*3/uL Eos # (Auto) (0.0-0.4) X10*3/uL Baso # (Auto) (0.0-0.2) X10*3/uL Abs Immat Gran (auto) (0.00-0.03) X10*3/uL Absolute Neuts (auto) (2.0-8.3) x10*3/uL Absolute Nucleated RBC (0.0-0.012) X10*3/uL Nucleated RBC % (auto) (0.0-0.2) /100WBC PT (9.9-13.0) SEC INR (0.9-1.1) APTT (24.1-38.0) SEC aPTT Heparin Protocol 30.6 L (53-77.9) SEC Sodium (135-145) mmol/L Potassium (3.3-5.1) mmol/L Chloride (96-108) mmol/L Carbon Dioxide (22-29) mmol/L Anion Gap (12-20) BUN (9-16) mg/dL Creatinine (0.5-1.4) mg/dL Estim Creat Clear Calc Estimated GFR Random Glucose (60-115) mg/dL Calcium (8.4-10.2) mg/dL Total Bilirubin (0.0-1.0) mg/dL Direct Bilirubin (0.0-0.5) mg/dL AST (5-37) U/L ALT (0-40) U/L Alkaline Phosphatase (39-117) U/L Troponin I High Sens 352.0 H* (<3.5-35.0) ng/L Total Protein (6.5-8.0) g/dL Albumin (3.5-5.0) g/dL Lipase (8-78) U/L Urine Color YELLOW Urine Appearance CLEAR Urine pH 5.5 (5.0-8.0) Ur Specific [place] >= 1.030 H (1.005-1.025) Urine Protein NEG (NEG-TRACE) MG/DL Urine Glucose (UA) 250 H (NEG) MG/DL Urine Ketones NEG (NEG) MG/DL Urine Blood NEG (NEG) Urine Nitrite NEG (NEG) Ur Leukocyte Esterase NEG (NEG) COVID-19 (TORY) (Negative) COVID-19 Clin Com 10/08/21 Range/Units 15:33 WBC (4.8-10.8) X10*3/uL RBC (4.60-5.80) X10*6/uL Hgb (14.0-18.0) g/dl Hct (42.0-52.0) % MCV (80.0-98.0) fL MCH (27.0-33.0) pg MCHC (31.0-36.0) g/dl RDW (11.0-16.0) % Plt Count (160-400) X10*3/uL MPV (9.4-12.4) fL Immature Gran % (Auto) (0.0-0.4) % Neut % (Auto) (45-73) % Lymph % (Auto) (20-40) % Slope % (Auto) (2-11) % Eos % (Auto) (0-4) % Baso % (Auto) (0-2) % Lymph # (Auto) (1.2-4.9) X10*3/uL Slope # (Auto) (0.1-1.2) X10*3/uL Eos # (Auto) (0.0-0.4) X10*3/uL Baso # (Auto) (0.0-0.2) X10*3/uL Abs Immat Gran (auto) (0.00-0.03) X10*3/uL Absolute Neuts (auto) (2.0-8.3) x10*3/uL Absolute Nucleated RBC (0.0-0.012) X10*3/uL Nucleated RBC % (auto) (0.0-0.2) /100WBC PT (9.9-13.0) SEC INR (0.9-1.1) APTT (24.1-38.0) SEC aPTT Heparin Protocol (53-77.9) SEC Sodium (135-145) mmol/L Potassium (3.3-5.1) mmol/L Chloride (96-108) mmol/L Carbon Dioxide (22-29) mmol/L Anion Gap (12-20) BUN (9-16) mg/dL Creatinine (0.5-1.4) mg/dL Estim Creat Clear Calc Estimated GFR Random Glucose (60-115) mg/dL Calcium (8.4-10.2) mg/dL Total Bilirubin (0.0-1.0) mg/dL Direct Bilirubin (0.0-0.5) mg/dL AST (5-37) U/L ALT (0-40) U/L Alkaline Phosphatase (39-117) U/L Troponin I High Sens (<3.5-35.0) ng/L Total Protein (6.5-8.0) g/dL Albumin (3.5-5.0) g/dL Lipase (8-78) U/L Urine Color Urine Appearance Urine pH (5.0-8.0) Ur Specific [place] (1.005-1.025) Urine Protein (NEG-TRACE) MG/DL Urine Glucose (UA) (NEG) MG/DL Urine Ketones (NEG) MG/DL Urine Blood (NEG) Urine Nitrite (NEG) Ur Leukocyte Esterase (NEG) COVID-19 (TORY) Negative (Negative) COVID-19 Clin Com See Note ECG Data Attestation EKG: I personally reviewed and interpreted this ECG as follows: Interpretation: Normal sinus rhythm at 83 beats per minutes with occasional PVCs, normal intervals, no ST-T changes. Discharge Plan Discharge Clinical Impression: Ulnar artery thrombus, left, Elevated troponin Patient Disposition: er [facility] Hospital Transfer Details: [facility]/emergency department Prescriptions: No [facility] amlodipine 10 mg tablet 10 mg PO DAILY Qty: 90 3RF bisoprolol-hydrochlorothiazide 10-6.25 mg tablet 1 tab PO DAILY Qty: 90 3RF metformin 1,000 mg tablet 1,000 mg PO BID Qty: 180 3RF Trelegy Ellipta 100-62.5-25 mcg blister with device 1 ea inhalation DAILY Qty: 180 3RF albuterol sulfate 90 mcg/actuation HFA aerosol inhaler 2 puff inhalation QID PRN (Reason: shortness of breath or wheezing) Qty: 8.5 3RF omega-3 fatty acids [Fish Oil Concentrate] 1,000 mg capsule 1,000 mg PO DAILY 0RF Basaglar KwikPen U-100 Insulin 100 unit/mL (3 mL) insulin pen 40 unit subcut QPM 0RF (DME) blood-glucose meter [OneTouch Ultra2 Meter] Misc See Rx Instructions .Route Qty: 1 0RF Rx Instructions: As directed omeprazole 40 mg capsule,delayed release(DR/EC) 40 mg PO DAILY Qty: 90 0RF
[2021-10-08 15:31] LABS: MANUAL DIFF FLAG NO
[2021-10-08 15:32] LABS: Basophils Percent Auto 0.3 % (0-2); Eosinophils Absolute Auto 0.7 X10*3/uL (0.0-0.4); Eosinophils Percent Auto 5.7 % (0-4); Hematocrit 44.5 % (42.0-52.0); Hemoglobin 14.8 g/dl (14.0-18.0); Imm Gran Abs Auto 0.05 X10*3/uL (0.00-0.03); Imm Gran Pct Auto 0.4 % (0.0-0.4); Lymphocytes Absolute Auto 3.1 X10*3/uL (1.2-4.9); Lymphocytes Percent Auto 26.3 % (20-40); Mean Corpuscular HGB Conc 33.3 g/dl (31.0-36.0); Mean Corpuscular Hemoglobin 27.7 pg (27.0-33.0); Mean Corpuscular Volume 83.3 fL (80.0-98.0); Mean Platelet Volume 10.2 fL (9.4-12.4); Neutrophils Absolute Auto 6.8 x10*3/uL (2.0-8.3); Neutrophils Percent Auto 58.3 % (45-73); Platelet Count 278 X10*3/uL (160-400); Red Blood Count 5.34 X10*6/uL (4.60-5.80); Red Cell Distribution Width 12.7 % (11.0-16.0); White Blood Count 11.6 X10*3/uL (4.8-10.8)
[2021-10-08] MEDS: 0.9 % Sodium Chloride 1,000 ML 999 ML IV (15:38)
[2021-10-08 15:39] LABS: INTERNATIONAL NORM RATIO 1.1 (0.9-1.1); Prothrombin Time 12.4 SEC (9.9-13.0)
[2021-10-08 15:42] LABS: Appearance Urine CLEAR; Color Urine YELLOW; Glucose Urine UA 250 MG/DL (NEG); Leukocyte Esterase Urine NEG (NEG); Nitrite Urine NEG (NEG); PH 5.5 (5.0-8.0); Specific Gravity - Urine >= 1.030 (1.005-1.025); Urine Blood NEG (NEG); Urine Ketones NEG (NEG); Urine Protein NEG (NEG-TRACE)
[2021-10-08 15:42] LABS: PTT Heparin Drip 30.6 SEC (53-77.9); Partial Thromboplastin Time 31.3 SEC (24.1-38.0)
[2021-10-08 15:54] LABS: Alanine Aminotransferase 23 U/L (0-40); Albumin Level 4.1 g/dL (3.5-5.0); Alkaline Phosphatase 54 U/L (39-117); Anion Gap 15 (12-20); Aspartate Amino Transferase 27 U/L (5-37); Bilirubin Direct < 0.2 mg/dL (0.0-0.5); Bilirubin Total 0.4 mg/dL (0.0-1.0); Blood Urea Nitrogen 15 mg/dL (9-16); Calcium 9.5 mg/dL (8.4-10.2); Carbon Dioxide 23 mmol/L (22-29); Chloride 102 mmol/L (96-108); Creatinine Clr Calc Pharmacy 86.2; Estimated Glomerular Filt Rate > 60; Glucose Random 208 mg/dL (60-115); Lipase 35 U/L (8-78); Potassium 4.4 mmol/L (3.3-5.1); Sodium 136 mmol/L (135-145); Total Protein 7.4 g/dL (6.5-8.0)
[2021-10-08 15:55] LABS: COVID-19 Test Negative (Negative)
[2021-10-08] MEDS: Heparin Sodium,Porcine 5,000 UNIT/ML VIAL 5000 UNIT IVPUSH (16:19)
[2021-10-08] MEDS: Heparin Sodium,Porcine/1/2NS 25,000 UNIT/250 ML IV.SOLN 12.75 UNIT IVCONT (16:20)
[2021-10-08 17:51] LABS: Troponin-I High Sensitivity 369.7 ng/L (<3.5-35.0)
--- NOTE | 2021-10-08 20:00 | PC.NURSE ---
pt ambulated to BR with steady gait
[2021-10-08 20:17] LABS: Glucose, Whole Blood 173 mg/dL (60-115)
--- NOTE | 2021-10-08 20:39 | PC.NURSE ---
report called to Lauren at [facility] ER
--- NOTE | 2021-10-08 20:45 | PC.NURSE ---
This US called [facility] @[phone] regarding ETA on ALS transfer to [facility] ER. Dispatcher tried to hand off transfer to other local ambulance companies and was denied. [facility] was unable to give ETA on ALS truck.
--- NOTE | 2021-10-08 21:05 | PC.NURSE ---
pt ambulated to BR to void; steady gait
--- NOTE | 2021-10-08 22:20 | PC.NURSE ---
pt ambulated to BR to void; steady gait, no c/o dizziness.
--- NOTE | 2021-10-08 22:29 | PC.NURSE ---
transport has been changed from ALS to BLS per due to delayed transport times. Per , heparin infusion to be paused while being transferred by BLS ballet professor. Per MD Pierson we do not need to obtain 2230 PTT. EMS expected at any time.
[2021-10-08 22:41] LABS: Glucose, Whole Blood 159 mg/dL (60-115)
--- NOTE | 2021-10-08 22:55 | PC.NURSE ---
update given to RN at [facility] ER regarding pausing the heparin infusion and need for updated PTT
== END 2021-10-08 22:52 | disposition short-term general hospital (02) ==
PROVIDERS: Internal Medicine; Emergency Provider Emergency Medicine; PCP Internal Medicine
DX: I74.2 Embolism and thrombosis of arteries of the upper extremities (principal); R60.0 Localized edema; R79.89 Other specified abnormal findings of blood chemistry; M79.602 Pain in left arm; Z20.822 Contact with and (suspected) exposure to COVID-19; Z87.891 Personal history of nicotine dependence; Z79.899 Other long term (current) drug therapy
CPT/HCPCS: 36415; 80048; 80076; 81003; 82947; 83690; 84484; 85025; 85610; 85730; 87635; 93005; 93931; 93971; 96361; 96365; 96366; 96375; 96376; 99285

== ENCOUNTER 2022-01-08 06:06 | Outpatient (REF) | payer MEDICARE, SELFPAY ==
[2022-01-08 11:25] LABS: Hematocrit 43.3 % (42.0-52.0); Mean Corpuscular HGB Conc 32.3 g/dl (31.0-36.0); Mean Corpuscular Hemoglobin 27.1 pg (27.0-33.0); Mean Corpuscular Volume 83.8 fL (80.0-98.0); Mean Platelet Volume 10.2 fL (9.4-12.4); Platelet Count 352 X10*3/uL (160-400); Red Blood Count 5.17 X10*6/uL (4.60-5.80); Red Cell Distribution Width 13.2 % (11.0-16.0); White Blood Count 12.1 X10*3/uL (4.8-10.8)
[2022-01-08 11:35] LABS: Estimated Average Glucose 249 mg/dL; Hemoglobin A1c % 10.3 %
[2022-01-08 11:45] LABS: Alanine Aminotransferase 29 U/L (0-40); Albumin Level 4.3 g/dL (3.5-5.0); Alkaline Phosphatase 41 U/L (39-117); Anion Gap 13 (12-20); Aspartate Amino Transferase 23 U/L (5-37); Bilirubin Total 0.4 mg/dL (0.0-1.0); Blood Urea Nitrogen 11 mg/dL (9-16); Calcium 9.6 mg/dL (8.4-10.2); Carbon Dioxide 26 mmol/L (22-29); Chloride 101 mmol/L (96-108); Cholesterol 92 mg/dL; Estimated Glomerular Filt Rate > 60; Glucose Fasting 248 mg/dL (60-99); HDL Cholesterol 43 mg/dL; LDL Cholesterol Calculated 24 mg/dl; Potassium 5.2 mmol/L (3.3-5.1); Sodium 135 mmol/L (135-145); Total Protein 7.2 g/dL (6.5-8.0); Triglycerides 129 mg/dL
[2022-01-08 11:58] LABS: Creatinine Urine 177.63 mg/dL; Microalbum/Creatinine Ratio Ur 18.5 ug/mg cr
== END 2022-01-08 06:07 | disposition home or self-care (01) ==
LOC: HO.HMGCLDS 06:06
PROVIDERS: Visit Provider Internal Medicine
DX: I74.2 Embolism and thrombosis of arteries of the upper extremities (principal); I10 Essential (primary) hypertension; E11.9 Type 2 diabetes mellitus without complications; E78.5 Hyperlipidemia, unspecified
CPT/HCPCS: 36415; 80053; 80061; 82043; 83036; 85027

== ENCOUNTER 2022-04-08 06:44 | Outpatient (REF) | payer MEDICARE, SELFPAY ==
[2022-04-08 11:20] LABS: MANUAL DIFF FLAG NO
[2022-04-08 11:51] LABS: Basophils Absolute Auto 0.1 X10*3/uL (0.0-0.2); Basophils Percent Auto 0.9 % (0-2); Eosinophils Absolute Auto 1.1 X10*3/uL (0.0-0.4); Eosinophils Percent Auto 9.6 % (0-4); Hematocrit 43.2 % (42.0-52.0); Hemoglobin 14.3 g/dl (14.0-18.0); Imm Gran Abs Auto 0.04 X10*3/uL (0.00-0.03); Imm Gran Pct Auto 0.3 % (0.0-0.4); Lymphocytes Absolute Auto 3.6 X10*3/uL (1.2-4.9); Lymphocytes Percent Auto 30.8 % (20-40); Mean Corpuscular HGB Conc 33.1 g/dl (31.0-36.0); Mean Corpuscular Hemoglobin 26.7 pg (27.0-33.0); Mean Corpuscular Volume 80.6 fL (80.0-98.0); Mean Platelet Volume 11.2 fL (9.4-12.4); Monocytes Absolute Auto 0.9 X10*3/uL (0.1-1.2); Neutrophils Absolute Auto 5.9 x10*3/uL (2.0-8.3); Neutrophils Percent Auto 50.4 % (45-73); Platelet Count 294 X10*3/uL (160-400); Red Blood Count 5.36 X10*6/uL (4.60-5.80); Red Cell Distribution Width 12.8 % (11.0-16.0); White Blood Count 11.7 X10*3/uL (4.8-10.8)
[2022-04-08 12:06] LABS: Estimated Average Glucose 243 mg/dL; Hemoglobin A1c % 10.1 %
[2022-04-08 12:57] LABS: Alanine Aminotransferase 23 U/L (0-40); Albumin Level 4.1 g/dL (3.5-5.0); Alkaline Phosphatase 39 U/L (39-117); Anion Gap 18 (12-20); Aspartate Amino Transferase 21 U/L (5-37); Bilirubin Total 0.6 mg/dL (0.0-1.0); Blood Urea Nitrogen 12 mg/dL (9-16); Calcium 8.9 mg/dL (8.4-10.2); Carbon Dioxide 22 mmol/L (22-29); Chloride 101 mmol/L (96-108); Cholesterol 79 mg/dL; Estimated Glomerular Filt Rate > 60; Glucose Fasting 236 mg/dL (60-99); HDL Cholesterol 33 mg/dL; LDL Cholesterol Calculated 20 mg/dl; Potassium 4.4 mmol/L (3.3-5.1); Sodium 137 mmol/L (135-145); Total Protein 6.8 g/dL (6.5-8.0); Triglycerides 131 mg/dL
== END 2022-04-08 06:45 | disposition home or self-care (01) ==
LOC: HO.HMGCLDS 06:44
PROVIDERS: PCP Internal Medicine; Visit Provider Internal Medicine
DX: E11.9 Type 2 diabetes mellitus without complications (principal); E78.5 Hyperlipidemia, unspecified; I10 Essential (primary) hypertension
CPT/HCPCS: 36415; 80053; 80061; 83036; 85025

== ENCOUNTER 2022-05-30 13:00 | Outpatient (REF) | payer MEDICARE, SELFPAY ==
--- NOTE | ~2022-05-30 | XR_ITS ---
EXAMINATION: XR CHEST CLINICAL INFORMATION: Acute bronchitis. COMPARISON: 09/06/2019 chest radiographs. TECHNIQUE: 2 views of the chest were obtained. FINDINGS: The lungs are clear. A subtle nodular density overlying the right midlung is less pronounced. There are no pleural effusions. The heart and mediastinal structures are unremarkable. XR/XR chest 2V IMPRESSION: No acute cardiopulmonary process.
== END 2022-05-30 13:01 | disposition home or self-care (01) ==
LOC: HO.HMGCX 13:00
PROVIDERS: PCP Internal Medicine; Visit Provider Internal Medicine
DX: J20.9 Acute bronchitis, unspecified (principal); R05.9 Cough, unspecified; R06.2 Wheezing
CPT/HCPCS: 71046

== ENCOUNTER 2022-07-09 06:01 | Outpatient (REF) | payer MEDICARE, SELFPAY ==
[2022-07-09 12:18] LABS: Estimated Average Glucose 255 mg/dL; Hemoglobin A1c % 10.5 %
[2022-07-09 13:07] LABS: Creatinine Urine 132.65 mg/dL; Microalbum/Creatinine Ratio Ur 18.8 ug/mg cr
[2022-07-09 13:58] LABS: Alanine Aminotransferase 32 U/L (0-40); Albumin Level 4.1 g/dL (3.5-5.0); Alkaline Phosphatase 42 U/L (39-117); Anion Gap 12 (12-20); Aspartate Amino Transferase 26 U/L (5-37); Bilirubin Total 0.4 mg/dL (0.0-1.0); Blood Urea Nitrogen 14 mg/dL (9-16); Calcium 9.1 mg/dL (8.4-10.2); Carbon Dioxide 27 mmol/L (22-29); Chloride 103 mmol/L (96-108); Cholesterol 83 mg/dL; Estimated Glomerular Filt Rate > 60; Glucose Fasting 210 mg/dL (60-99); HDL Cholesterol 34 mg/dL; LDL Cholesterol Calculated 21 mg/dl; Potassium 4.1 mmol/L (3.3-5.1); Sodium 138 mmol/L (135-145); Total Protein 6.6 g/dL (6.5-8.0); Triglycerides 144 mg/dL
== END 2022-07-09 06:02 | disposition home or self-care (01) ==
LOC: HO.HMGCLDS 06:01
PROVIDERS: PCP Internal Medicine; Visit Provider Internal Medicine
DX: E78.5 Hyperlipidemia, unspecified (principal); I10 Essential (primary) hypertension; E11.9 Type 2 diabetes mellitus without complications
CPT/HCPCS: 36415; 80053; 80061; 82043; 83036

== ENCOUNTER 2022-07-24 12:56 | Outpatient (REF) | payer MEDICARE, SELFPAY ==
[2022-07-28 18:14] LABS: Glutamic acid decarboxylase Ab <5 IU/mL (<5)
== END 2022-07-24 12:57 | disposition home or self-care (01) ==
LOC: HO.LAB 12:56
PROVIDERS: PCP Internal Medicine; Visit Provider Internal Medicine Endocrinology, Diabetes & Metabolism
DX: E11.51 Type 2 diabetes mellitus with diabetic peripheral angiopathy without gangrene (principal); Z79.84 Long term (current) use of oral hypoglycemic drugs; Z79.4 Long term (current) use of insulin; Z79.899 Other long term (current) drug therapy
CPT/HCPCS: 36415; 82947; 86341; 99202

== ENCOUNTER 2022-10-09 11:28 | Day surgery (SDC) | payer MEDICARE, SELFPAY ==
--- NOTE | ~2022-10-09 | XR_ITS ---
EXAMINATION: XR SOFT TISSUE NECK CLINICAL INDICATION: Evaluate for foreign body. Choked on food. COMPARISON: None available. TECHNIQUE: 2 views of the soft tissue neck were obtained. FINDINGS: The soft tissues of the neck are normal. The aryepiglottic folds and epiglottis are unremarkable. There is no prevertebral soft tissue swelling. The trachea is midline in position. No radiopaque foreign body within the neck or visualized upper chest. 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 A left subclavian vascular stent projects over the left upper chest. No pneumomediastinum. XR/XR soft tissue neck IMPRESSION: No acute abnormality. No evidence of a foreign body within the neck.
[2022-10-09 11:39] VITALS: BP 145/63; PULSE 88; RESP 18; TEMP 36.3; O2SAT 95; BMI 25.7
--- NOTE | 2022-10-09 11:39 | ED_ITS ---
HPI - General Adult General Chief complaint: General Medical <Daphne Soto NP - Last Filed: 10/09/22 11:42> Stated complaint: throat issues <Daphne Soto NP - Last Filed: 10/09/22 11:42> Time Seen by Provider: 10/09/22 12:23 <Daphne Soto NP - Last Filed: 10/09/22 11:42> Source: patient <MARK Rincon - Last Filed: 10/09/22 14:38> Mode of arrival: ambulatory <MARK Rincon Last Filed: 10/09/22 14:38> Limitations: no limitations <MARK Rincon Last Filed: 10/09/22 14:38> History of Present Illness HPI narrative: 67 yo male with history of COPD, HTN, DM, HLD, PE, history of Schatski's ring with esophageal obstruction requiring diliation in the past who presents to the ER for evaluation of esophageal foreign body. He states he was eating steak last night at 5pm and a piece got stuck. He states he has been unable to tolerate p.o. liquids stents. He states he tried to have a sip of water and try to have small mid this morning but it came right back up. He reports foreign body sensation right in the middle of his throat. He denies any chest pain. No abdominal pain. No episodes of vomiting but he has not been able to tolerate anything by mouth. He does have a history of this in the past couple of years ago. He required dilatation. <MARK Rincon - Last Filed: 10/09/22 14:38> MD complaint: Esophageal foreign body <MARK Rincon Last Filed: 10/09/22 14:38> Onset (ago): hour(s) <MARK Rincon Last Filed: 10/09/22 14:38> Location: neck <MARK Rincon Last Filed: 10/09/22 14:38> Radiation: non-radiation <MARK Rincon Last Filed: 10/09/22 14:38> Severity: moderate <MARK Rincon Last Filed: 10/09/22 14:38> Quality: aching <MARK Rincon - Last Filed: 10/09/22 14:38> Pain Consistency: intermittent <MARK Rincon - Last Filed: 10/09/22 14:38> Relieving factors: none <MARK Rincon - Last Filed: 10/09/22 14:38> Exacerbating factors: eating <MARK Rincon - Last Filed: 10/09/22 14:38> Associated symptoms: denies other symptoms <MARK Rincon - Last Filed: 10/09/22 14:38> Treatments prior to arrival: none <MARK Rincon - Last Filed: 10/09/22 14:38> Related Data Home medications: Home Medications Medication Instructions Recorded Confirmed omega-3 fatty acids 1,000 mg 1,000 mg PO DAILY 12/12/20 09/16/22 capsule (Fish Oil Concentrate) hydrochlorothiazide 12.5 mg tablet 12.5 mg PO DAILY 10/15/21 09/16/22 metformin 1,000 mg tablet 1,000 mg PO BID 04/15/22 09/16/22 Previous Rx's Medication Instructions Recorded blood-glucose meter (OneTouch #1 ea 03/13/21 Ultra2 Meter) albuterol sulfate 90 mcg/actuation 2 puff inhalation QID PRN 07/13/21 aerosol inhaler shortness of breath or wheezing #8.5 grams losartan 50 mg tablet 50 mg PO DAILY #90 tabs 12/12/21 hydrocortisone valerate 0.2 % 1 appl topical BID PRN skin 01/16/22 topical cream irritation #45 grams rosuvastatin 20 mg tablet 20 mg PO DAILY #90 tabs 01/16/22 amlodipine 10 mg tablet 10 mg PO DAILY #90 tabs 03/07/22 pen needle, diabetic 32 gauge x #100 ea 04/26/2206/26 (BD Ultra-Fine Micro Pen Needle) fluticasone fur. 100 mcg-umeclid 1 ea inhalation DAILY #180 ea 07/15/22 62.5 mcg-vilant 25 mcg inhalat.powder (Trelegy Ellipta) insulin glargine 100 unit/mL (3 48 unit (0.48 mL) subcut QPM #45 mL 07/24/22 mL) subcutaneous pen (Lantus Solostar U-100 Insulin) bisoprolol 10 1 tab PO DAILY #90 tabs 08/26/22 mg-hydrochlorothiazide 6.25 mg tablet dulaglutide 1.5 mg/0.5 mL 1.5 mg (0.5 mL) subcut QWEEK #6 mL 09/16/22 subcutaneous pen injector (Trulicity) <Daphne Soto NP - Last Filed: 10/09/22 11:42> Allergies/adverse reactions: Allergies Allergy/AdvReac Type Severity Reaction Status Date / Time amoxicillin [AMOXICILLIN] Allergy Severe VOMITING Verified 10/09/22 11:43 Sulfa (Sulfonamide Allergy Severe HIVES Verified 10/09/22 11:43 Antibiotics) [SULFA (SULFONAMIDE ANTIBIOTICS)] lisinopril Allergy Unknown cough Verified 10/09/22 11:43 losartan Allergy Unknown hyperkalemi Verified 10/09/22 11:43 a moxifloxacin [From Avelox] Allergy Unknown Pt does Verified 10/09/22 11:43 not remeber pravastatin Allergy Unknown diarrhea Verified 10/09/22 11:43 rosuvastatin [Crestor] Allergy Unknown diarrhea Verified 10/09/22 11:43 sitagliptin [Januvia] Allergy Unknown stomach Verified 10/09/22 11:43 upset <Daphne Soto NP - Last Filed: 10/09/22 11:42> Review of Systems Review of Systems: Yes all other systems are reviewed and are negative <MARK Rincon - Last Filed: 10/09/22 14:38> [facility] Past Medical History Medical History: Medical History (Updated 10/09/22 @ 13:56 by MARK Rincon) 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 Claudication COPD (chronic obstructive pulmonary disease) Diabetes Dysphagia Hard of hearing History of postoperative nausea and vomiting HTN (hypertension) Hyperlipidemia Lung nodule, solitary Pulmonary emboli <Daphne Soto NP - Last Filed: 10/09/22 11:42> Surgical History: Surgical History (Updated 07/24/22 @ 13:06 by Hiren Ko Henny) History of endoscopy History of esophagogastroduodenoscopy (EGD) History of knee replacement History of surgery Hx of appendectomy Hx of cholecystectomy Hx of colonoscopy Previous back surgery <Daphne Soto NP - Last Filed: 10/09/22 11:42> Family History Family History: Family History Son Diabetes 1.5, managed as type 2 Father No problems noted. Mother No problems noted. Daughter No problems noted. Brother Myocardial infarction <Daphne Soto NP - Last Filed: 10/09/22 11:42> Social History Social History: Social History (Updated 07/24/22 @ 13:12 by LEV Holm) Household Members: Family Household Members Other:: older daughter, grand daughter 9 yr old Housing: House Are you a primary client care specialist to a significant other at home: No Do you presently have visiting nurse or other home services: No Alcohol intake: never Patient Tobacco Use Status: Former Tobacco user Cigarette Packs Per Day: 2.5 Years Smoked: 30 Smoked in Last 30 Days: No e-Cigarette/Vaping Use: Never Used Second Hand Smoke Exposure: No Use of substances other than those prescribed or required for medical reasons: No Are you DNR?: No Advance Directives: No service: No Current occupational status: retired Current occupational exposures/hazards: No Cognitive needs: No Hearing needs: Yes Vision needs: No <Daphne Soto NP - Last Filed: 10/09/22 11:42> Physical Exam ED Vital Signs: Vital Signs - 24 hr 10/09/22 11:39 10/09/22 13:42 10/09/22 14:04 Temperature 97.3 F 97.5 F Pulse Rate 88 86 84 Respiratory Rate 18 16 18 Blood Pressure 145/63 H 114/66 100/81 Pulse Oximetry 95 97 Oxygen Delivery Method Room Air Room Air BMI result Body Mass Index 25.7 <Daphne Soto NP - Last Filed: 10/09/22 11:42> Vital Signs - 24 hr 10/09/22 11:39 10/09/22 13:42 10/09/22 14:04 Temperature 97.3 F 97.5 F Pulse Rate 88 86 84 Respiratory Rate 18 16 18 Blood Pressure 145/63 H 114/66 100/81 Pulse Oximetry 95 97 Oxygen Delivery Method Room Air Room Air BMI result Body Mass Index 25.7 <MARK Rincon - Last Filed: 10/09/22 14:38> Appearance: Alert. Oriented X3. No acute distress. Head: normocephalic, atraumatic. Eyes: Pupils equal, round and reactive to light. ENT: Pharynx normal. No tonsillar swelling or exudate. Neck: Normal inspection. Neck supple. Trachea midline. CVS: Normal heart rate and rhythm. Pulses normal. Respiratory: No respiratory distress. Breath sounds normal. Normal voice, handling secretions normally. Abdomen: Soft and nontender. +BS x4 Skin: Skin warm and dry. Normal skin color. Normal skin turgor. No rashes. Extremities: No lower extremity edema. No joint swelling. Neuro/psych: Oriented X 3. No motor deficit. No sensory deficit. CN II-XII intact. Normal speech and cognition. <MARK Rincon - Last Filed: 10/09/22 14:38> Course Course Course Narrative: This is a rapid medical exam. Deferred additional HPI, ROS, PE to primary provider. 67 yo male with history of schatzki ring, esophageal obstruction, DM, HTN, HLD here with prime rib stuck in throat, cant drink water or eat. WIll obtain soft tissue x-ray. VSS <Daphne Stoo NP - Last Filed: 10/09/22 11:42> Medications Administered Generic Name Dose Route Start Last Admin Trade Name Freq PRN Reason Stop Dose Admin Lactated Ringer's 1,000 mls @ 50 mls/hr 10/09/22 14:15 10/09/22 14:10 Lr IVCONT 50 mls/hr .Q20H IOANA Administration Discontinued Medications Generic Name Dose Route Start Last Admin Trade Name Freq PRN Reason Stop Dose Admin Nitroglycerin 0.4 mg 10/09/22 12:58 10/09/22 13:13 Nitroglycerin 0.4 Mg Tab.Subl SUBLINGUAL 10/09/22 12:59 0.4 mg ONCE ONE Administration <Daphne Soto NP - Last Filed: 10/09/22 11:42> Medications Administered Generic Name Dose Route Start Last Admin Trade Name Freq PRN Reason Stop Dose Admin Lactated Ringer's 1,000 mls @ 50 mls/hr 10/09/22 14:15 10/09/22 14:10 Lr IVCONT 50 mls/hr .Q20H IOANA Administration Discontinued Medications Generic Name Dose Route Start Last Admin Trade Name Leslie PRN Reason Stop Dose Admin Nitroglycerin 0.4 mg 10/09/22 12:58 10/09/22 13:13 Nitroglycerin 0.4 Mg Tab.Subl SUBLINGUAL 10/09/22 12:59 0.4 mg ONCE ONE Administration <MARK Rincon - Last Filed: 10/09/22 14:38> Medical Decision Making Medical Decision Making MDM Narrative: 67-year-old male with a history of COPD, HTN, HLD, dm, PE, history of Schatzki's ring requiring esophageal dilatation in the past presents to the ER for evaluation of a piece of steak stuck in his throat since last night. Unable to tolerate oral liquids or solids since last night. He was given a glass of gin [place] in the emergency department, he swallowed it and within 5 seconds all the liquid came back up. GI team was contacted. Plan for endoscopy for removal, possible dilatation. Patient kept NPO. Patient agrees with plan. <MARK Rincon - Last Filed: 10/09/22 14:38> Differential Diagnosis Differential Diagnoses: The differential diagnosis associated with the presentation includes <MARK Rincon Last Filed: 10/09/22 14:38> Esophageal foreign body, esophageal spasm, Schatzki's ring, esophageal stricture, aspiration <MARK Rincon - Last Filed: 10/09/22 14:38> Admission/Observation Consideration of admission/observation: Escalation of care including admission/observation considered <MARK Rincon - Last Filed: 10/09/22 14:38> To go to GI suite for endoscopy and foreign body removal. <MARK Rincon Last Filed: 10/09/22 14:38> Consult Healthcare Provider Management of the patient was discussed with: Press Maintainer <MARK Rincon - Last Filed: 10/09/22 14:38> Case discussed with Dr. Ruby who is recommending contacting Dr. Knox who has scoped him in the past x2. Dr. Knox TT - added on to end of the day case <MARK Rincon Last Filed: 10/09/22 14:38> Lab Data MDM Lab Attestation statement: I reviewed the patient's lab results. <MARK Rincon - Last Filed: 10/09/22 14:38> Labs: Lab Results 10/09/22 Range/Units 12:43 POC Glucose 113 (60-115) mg/dL <Daphne Soto NP - Last Filed: 10/09/22 11:42> Lab Results 10/09/22 Range/Units 12:43 POC Glucose 113 (60-115) mg/dL <MARK Rincon - Last Filed: 10/09/22 14:38> Independent Interpretation I performed an independent interpretation of an: Plain X-Ray <MARK Rincon - Last Filed: 10/09/22 14:38> Interpretation: Soft tissue neck x-ray with no evidence of foreign body <MARK Rincon - Last Filed: 10/09/22 14:38> Radiology Impression Discussion of test interpretation with radiology: I have reviewed the radiologist's reading. <MARK Rincon - Last Filed: 10/09/22 14:38> Radiologist Impression: XR/XR soft tissue neck IMPRESSION: No acute abnormality. No evidence of a foreign body within the neck. <MARK Rincon - Last Filed: 10/09/22 14:38> External Record Review External record reviewed: Outpatient record, Prior outpatient labs and Prior outpatient radiology <MARK Rincon - Last Filed: 10/09/22 14:38> Prescription Management I considered prescription management with: Other (Sublingual nitroglycerin given with no improvement.) <MARK Rincon - Last Filed: 10/09/22 14:38> Chronic Conditions Patient?s care impacted by: Diabetes <MARK Rincon - Last Filed: 10/09/22 14:38> Critical Care Time Critical Care Time Critical Care Time: No <MARK Rincon - Last Filed: 10/09/22 14:38> Discharge Plan Discharge Clinical Impression: Esophageal foreign body <Daphne Soto NP - Last Filed: 10/09/22 11:42> Patient Disposition: Admitted as Observation <Daphne Soto NP - Last Filed: 10/09/22 11:42>
--- NOTE | 2022-10-09 12:35 | PC.NURSE ---
Pt on stretcher, airway open and patent, no obvious signs of distress, speaking in full sentences, no difficulty breathing. A&ox4, skin normal for ethnicity, warm, and dry. Heart sounds normal. Bowel sounds present all fitzpatrick. No edema noted. Pt reports eating steak last night for dinner and now has a piece stuck in his throat, but not interfering with his breathing. Pt reports that this has happened to him before about 2 yrs ago and he needed surgical removal.
[2022-10-09 12:48] LABS: Glucose, Whole Blood 113 mg/dL (60-115)
[2022-10-09] MEDS: Nitroglycerin 0.4 MG TAB.SUBL SUBLINGUAL (13:13)
--- NOTE | 2022-10-09 13:30 | P.CNGI_ITS ---
History of Present Illness Data of Consult Service Date: 10/09/22 Requesting physician: Kathy Ding Primary Care Provider: Marisel To MD HPI Reason for consult: food impaction,esophagus 67 yr old m with hx of schatzki ring, HTN, COPD< HLP, DM who I am seeing for assessment for food impaction He was eating steak yesterday and felt it got stuck, since then keeps spitting mucous, can talk easily. No chest pain , no abdo pain, no melena or rectal bleeding. Breathing is normal. He has hx of schatzki ring and erosive esophagitis, reuqiring dilation in past, he says he was doing ok till last few months and noted worsening swallowing issues to solids. Review of Systems Review of Systems: Constitutional : No Weight loss, No Fever, No Chills ENT/Mouth : No sore throat, No Rhinorrhea Eyes: No Swelling, No Redness Cardiovascular : No Chest Pain, No SOB, No Edema Respiratory : No Cough, No Sputum, No Wheezing Gastrointestinal : see HPI Genitourinary : NO Dysuria, No Urinary Frequency, No Hematuria, No Urgency Musculoskeletal : No joint pain, No Myalgias, No Joint Swelling Skin : No Skin Lesions, No rash Neuro : No Weakness, No Numbness, No Dizziness, No Headache Psych : No Anxiety/Panic, No Depression Heme/Lymph: No Bruising, No Lymphadenopathy Endocrine : No Polyuria, No Polydipsia All other systems reviewed and are negative. 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 Mother No problems noted. Daughter No problems noted. Brother Myocardial infarction Surgical History Surgical History (Updated 07/24/22 @ 13:06 by LEV Holm) History of endoscopy History of esophagogastroduodenoscopy (EGD) History of knee replacement History of surgery Hx of appendectomy Hx of cholecystectomy Hx of colonoscopy Previous back surgery Social History Social History (Updated 07/24/22 @ 13:12 by LEV Holm) Household Members: Family Household Members Other:: older daughter, grand daughter 9 yr old Housing: House Are you a primary memory care program director to a significant other at home: No Do you presently have visiting nurse or other home services: No Alcohol intake: never Patient Tobacco Use Status: Former Tobacco user Cigarette Packs Per Day: 2.5 Years Smoked: 30 e-Cigarette/Vaping Use: Never Used Second Hand Smoke Exposure: No service: No Current occupational status: retired Current occupational exposures/hazards: No Cognitive needs: No Hearing needs: Yes Vision needs: No Meds Allergies Allergy/AdvReac Type Severity Reaction Status Date / Time amoxicillin [AMOXICILLIN] Allergy Severe VOMITING Verified 10/09/22 11:43 Sulfa (Sulfonamide Allergy Severe HIVES Verified 10/09/22 11:43 Antibiotics) [SULFA (SULFONAMIDE ANTIBIOTICS)] lisinopril Allergy Unknown cough Verified 10/09/22 11:43 losartan Allergy Unknown hyperkalemi Verified 10/09/22 11:43 a moxifloxacin [From Avelox] Allergy Unknown Pt does Verified 10/09/22 11:43 not remeber pravastatin Allergy Unknown diarrhea Verified 10/09/22 11:43 rosuvastatin [Crestor] Allergy Unknown diarrhea Verified 10/09/22 11:43 sitagliptin [Januvia] Allergy Unknown stomach Verified 10/09/22 11:43 upset Home Medications Medication Instructions Recorded Confirmed Last Taken Type omega-3 fatty acids 1,000 mg 1,000 mg PO DAILY 12/12/20 09/16/22 Unknown History capsule (Fish Oil Concentrate) hydrochlorothiazide 12.5 mg tablet 12.5 mg PO DAILY 10/15/21 09/16/22 Unknown History metformin 1,000 mg tablet 1,000 mg PO BID 04/15/22 09/16/22 Unknown History Physical Exam Vital Signs: Vital Signs: Last Vital Signs Temp 97.3 F 10/09/22 11:39 Pulse 88 10/09/22 11:39 Resp 18 10/09/22 11:39 BP 145/63 H 10/09/22 11:39 Pulse Ox 95 10/09/22 11:39 O2 Del Method Room Air 10/09/22 11:39 BMI result Body Mass Index 25.7 EXAM: GENERAL: The patient is well developed and nontoxic. VITAL SIGNS:see workflow HEENT: Nonicteric sclerae, PERRLA, EOMI. Oropharynx clear. Moist mucous membranes. Conjunctivae appear well perfused. No thyroid mass. CHEST: Chest wall is nontender. HEART: Regular rate and rhythm without murmurs. LUNGS: Clear to auscultation bilaterally. ABDOMEN: Soft, positive bowel sounds, nontender, no organomegaly.no flank tenderness SKIN: No rash, no excessive bruising, petechiae, or purpura. NEUROLOGIC: Cranial nerves II-XII intact without motor/sensory deficit. psych-nml Assessment and Plan (1) Esophageal foreign body: Status: Acute Plan 1/ Impacted food bolus, 2/2 schatzki ring PLAN: 1/ EGD today for further assessment Time Spent With Patient Time: Total time managing care of this patient today ____ minutes. Procedures Date of Service Date of Service: 10/09/22
[2022-10-09 13:42] VITALS: BP 114/66; PULSE 86; RESP 16
--- NOTE | 2022-10-09 13:42 | PC.NURSE ---
Pt sx unrelieved by Nitro given
--- NOTE | 2022-10-09 13:48 | PC.NURSE ---
RN to RN report given to OR nurse.
[2022-10-09 14:04] VITALS: BP 100/81; PULSE 84; RESP 18; TEMP 36.4; O2SAT 97
[2022-10-09] MEDS: Lactated Ringers 1,000 ML 50 ML IVCONT (14:10)
--- NOTE | 2022-10-09 14:16 | P.CONAN_ITS ---
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 (Acute) Pulmonary emboli (Acute) Claudication (Acute) Schatzki's ring (Acute) COPD (chronic obstructive pulmonary disease) (Acute) Hyperlipidemia (Acute) Lung nodule, solitary (Acute) HTN (hypertension) (Acute) Diabetes (Acute) Past Medical History Medical History (Updated 10/09/22 @ 13:56 by MARK Rincon) 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 Mother No problems noted. Daughter No problems noted. Brother Myocardial infarction Family history of problems with anesthesia: No Surgical History Surgical History (Updated 07/24/22 @ 13:06 by LEV Holm) History of endoscopy History of esophagogastroduodenoscopy (EGD) History of knee replacement History of surgery Hx of appendectomy Hx of cholecystectomy Hx of colonoscopy Previous back surgery History of Problems with Anesthesia: No Social History Social History (Updated 07/24/22 @ 13:12 by LEV Holm) Household Members: Family Household Members Other:: older daughter, grand daughter 9 yr old Housing: House Are you a primary district manager primary care sales to a significant other at home: No Do you presently have visiting nurse or other home services: No Alcohol intake: never Patient Tobacco Use Status: Former Tobacco user Cigarette Packs Per Day: 2.5 Years Smoked: 30 Smoked in Last 30 Days: No e-Cigarette/Vaping Use: Never Used Second Hand Smoke Exposure: No Use of substances other than those prescribed or required for medical reasons: No Are you DNR?: No Advance Directives: No service: No Current occupational status: retired Current occupational exposures/hazards: No Cognitive needs: No Hearing needs: Yes Vision needs: No Meds Allergies Allergy/AdvReac Type Severity Reaction Status Date / Time amoxicillin [AMOXICILLIN] Allergy Severe VOMITING Verified 10/09/22 11:43 Sulfa (Sulfonamide Allergy Severe HIVES Verified 10/09/22 11:43 Antibiotics) [SULFA (SULFONAMIDE ANTIBIOTICS)] lisinopril Allergy Unknown cough Verified 10/09/22 11:43 losartan Allergy Unknown hyperkalemi Verified 10/09/22 11:43 a moxifloxacin [From Avelox] Allergy Unknown Pt does Verified 10/09/22 11:43 not remeber pravastatin Allergy Unknown diarrhea Verified 10/09/22 11:43 rosuvastatin [Crestor] Allergy Unknown diarrhea Verified 10/09/22 11:43 sitagliptin [Januvia] Allergy Unknown stomach Verified 10/09/22 11:43 upset Active Medications: Current Medications Lactated Ringer's (Lr) 1,000 mls @ 50 mls/hr IVCONT .Q20H IOANA Last Admin: 10/09/22 14:10 Dose: 50 mls/hr Home Medications Medication Instructions Recorded Confirmed Last Taken Type omega-3 fatty acids 1,000 mg 1,000 mg PO DAILY 12/12/20 09/16/22 Unknown History capsule (Fish Oil Concentrate) hydrochlorothiazide 12.5 mg tablet 12.5 mg PO DAILY 10/15/21 09/16/22 Unknown History metformin 1,000 mg tablet 1,000 mg PO BID 04/15/22 09/16/22 Unknown History Exam Exam Date and Time: October 09, 2022 1416 Height,Weight and Vital Signs: Height 6 ft Weight 86.183 kg Last Vital Signs Temp 97.5 F 10/09/22 14:04 Pulse 84 10/09/22 14:04 Resp 18 10/09/22 14:04 BP 100/81 10/09/22 14:04 Pulse Ox 97 10/09/22 14:04 O2 Del Method Room Air 10/09/22 14:04 Pertinent Lab Results Pertinent Lab Results: Laboratory Tests 10/09/22 12:43 POC Glucose 113 Airway Mallampati Class: I TM Dist: >3cm Neck ROM: Full Heart: ok Lungs: ok Assessment and Plan Assessment Anesthesia Assessment: Anesthesia Plan Discussed and Chart Reviewed Final Anesthetic Review Family History of Problems with Anesthesia: No History of Problems with Anesthesia: No NPO: Yes ASA Class: III and Emergency Final Preanesthetic Review: No Changes in Pt Med Stat, Meds/Allgs Chart Reviewed, Consent Obtained/Reviewed and Anes Risks/Benef Reviewed Patient Risk: Intermediate Procedure Risk: Intermediate Anesthetic Plan Anesthetic Plan: MAC: and Agree w/ Assess. and Plan Disposition: Standard PACU
--- NOTE | 2022-10-09 14:56 | MHC.SHP ---
Pre-Procedural Eval Section A Date of Service: 10/09/22 The patient is an INPATIENT: No The History & Physical has been completed within 30 days and I have reviewed it.: Yes Section B Chief Complaint: throat issues Allergies: Allergies Allergy/AdvReac Type Severity Reaction Status Date / Time amoxicillin [AMOXICILLIN] Allergy Severe VOMITING Verified 10/09/22 11:43 Sulfa (Sulfonamide Allergy Severe HIVES Verified 10/09/22 11:43 Antibiotics) [SULFA (SULFONAMIDE ANTIBIOTICS)] lisinopril Allergy Unknown cough Verified 10/09/22 11:43 losartan Allergy Unknown hyperkalemi Verified 10/09/22 11:43 a moxifloxacin [From Avelox] Allergy Unknown Pt does Verified 10/09/22 11:43 not remeber pravastatin Allergy Unknown diarrhea Verified 10/09/22 11:43 rosuvastatin [Crestor] Allergy Unknown diarrhea Verified 10/09/22 11:43 sitagliptin [Januvia] Allergy Unknown stomach Verified 10/09/22 11:43 upset Plan Diagnosis/Plan: Unchanged I have reviewed the history and physical and performed a pertinent physical examination on my patient. No changes have occurred unless specified. EGD for food impaction Time Spent With Patient Time: Total time managing care of this patient today ____ minutes.
--- NOTE | 2022-10-09 15:29 | W.PM.OPN ---
Operative Note Operative Note Date of Service: 10/09/22 Narrative: Procedure Description: EGD Indication: food impaction Anesthesia: GA FLEXIBLE TRANSORAL UPPER GASTROINTESTINAL ENDOSCOPY UPPER ENDOSCOPY Consent: Indications for the procedure and potential complications of bleeding, perforation, reaction to medications and missed diagnosis were discussed with the patient and informed consent was obtained. Instrument: Olympus GIF H 190 J mid size upper endoscope Monitoring: Vital signs and clinical assessment, continuous EKG monitoring, Pulse oximetry, Carbon Dioxide monitoring and blood pressure monitoring were done throughout the procedure. Procedure: The patient was placed in the left lateral decubitis position and pre-procedure medications were administered and a bite block was placed. The endoscope was inserted into the mouth and advanced under direct vision to the third part of duodenum. A careful inspection was made as the upper endoscope was withdrawn including a retroflexed examination of the proximal stomach; Findings and interventions are described below. Findings: Larynx:normal Esophagus: GE junction at 40 cm, diaphragm hiatus at 40 cm, impacted food bolus noted at GEJ and gently pushed into the stomach. The surrounding tissue was friable and macerated. Balloon dilation done to 14 mm with good effect. Stomach: Patchy gastric erythema. Grade 2 flap valve on retroflexed examination of the cardia. Duodenum: Patchy erosions Intervention: Balloon dilation and removal of impacted food bolus Impression/Findings: food impaction PLAN: commence carafate for 2 weeks and pantoprazole 40 mg daily indefinitely repeat EGD in 4-6 weeks with dilation
[2022-10-09 15:33] VITALS: BP 110/63; PULSE 88; RESP 17; TEMP 36.4; O2SAT 98
[2022-10-09 15:48] VITALS: BP 120/68; PULSE 88; RESP 18; TEMP 36.6; O2SAT 96
[2022-10-09 16:03] VITALS: BP 136/65; PULSE 75; RESP 18; TEMP 36.6; O2SAT 98
== END 2022-10-09 17:44 | disposition home or self-care (01) ==
LOC: HO.ED 13:56 → HO.SSS 14:21
PROVIDERS: Emergency Provider Emergency Medicine Emergency Medical Services; PCP Internal Medicine; Visit Provider Internal Medicine Gastroenterology
PROC: 0DJ08ZZ Inspection of Upper Intestinal Tract, Via Natural or Artificial Opening Endoscopic (ICD-10-PCS; CPT 43235; principal; 2022-10-09 15:20)
DX: T18.128A Food in esophagus causing other injury, initial encounter (principal); R13.10 Dysphagia, unspecified; X58.XXXA Exposure to other specified factors, initial encounter; Y93.89 Activity, other specified; Y92.9 Unspecified place or not applicable; Y99.8 Other external cause status; Z87.19 Personal history of other diseases of the digestive system; K44.9 Diaphragmatic hernia without obstruction or gangrene; R91.1 Solitary pulmonary nodule; I26.99 Other pulmonary embolism without acute cor pulmonale; J44.9 Chronic obstructive pulmonary disease, unspecified; I10 Essential (primary) hypertension; E78.5 Hyperlipidemia, unspecified; E11.9 Type 2 diabetes mellitus without complications; Z79.84 Long term (current) use of oral hypoglycemic drugs; Z79.899 Other long term (current) drug therapy; Z88.2 Allergy status to sulfonamides; Z88.8 Allergy status to other drugs, medicaments and biological substances; Z87.891 Personal history of nicotine dependence
CPT/HCPCS: 43247; 43249; 70360; 82947; 99284; 99285; C1726; J1100; J2405; J3010

== ENCOUNTER 2022-10-22 06:02 | Outpatient (REF) | payer MEDICARE, SELFPAY ==
[2022-10-22 11:38] LABS: Estimated Average Glucose 166 mg/dL; Hemoglobin A1c % 7.4 %
[2022-10-22 12:10] LABS: Alanine Aminotransferase 22 U/L (0-40); Albumin Level 4.1 g/dL (3.5-5.0); Alkaline Phosphatase 42 U/L (39-117); Anion Gap 10 (12-20); Aspartate Amino Transferase 19 U/L (5-37); Bilirubin Total 0.4 mg/dL (0.0-1.0); Blood Urea Nitrogen 14 mg/dL (9-16); Calcium 9.4 mg/dL (8.4-10.2); Carbon Dioxide 30 mmol/L (22-29); Chloride 104 mmol/L (96-108); Cholesterol 85 mg/dL; Estimated Glomerular Filt Rate > 60; Glucose Fasting 149 mg/dL (60-99); HDL Cholesterol 32 mg/dL; LDL Cholesterol Calculated 30 mg/dl; Potassium 4.4 mmol/L (3.3-5.1); Sodium 140 mmol/L (135-145); Total Protein 6.8 g/dL (6.5-8.0); Triglycerides 118 mg/dL
[2022-10-22 12:11] LABS: Microalbum/Creatinine Ratio Ur 12.4 ug/mg cr
== END 2022-10-22 06:03 | disposition home or self-care (01) ==
LOC: HO.HMGCLDS 06:02
PROVIDERS: PCP Internal Medicine; Visit Provider Internal Medicine
DX: E11.9 Type 2 diabetes mellitus without complications (principal); I10 Essential (primary) hypertension; E78.5 Hyperlipidemia, unspecified
CPT/HCPCS: 36415; 80053; 80061; 82043; 83036

== ENCOUNTER → 2022-10-30 10:45 | Outpatient (BNVA) | payer MEDICARE, SELFPAY | PROVIDERS: PCP Internal Medicine; Visit Provider Internal Medicine Endocrinology, Diabetes & Metabolism | DX: E11.9 Type 2 diabetes mellitus without complications (principal); Z79.84 Long term (current) use of oral hypoglycemic drugs; Z79.4 Long term (current) use of insulin; Z79.85 Long-term (current) use of injectable non-insulin antidiabetic drugs | CPT/HCPCS: 82947; 99212 ==

== ENCOUNTER 2022-11-05 07:46 | Outpatient (REF) | payer SELFPAY | END 2022-11-05 07:47 | disposition home or self-care (01) | LOC: HO.SH 07:46 | PROVIDERS: Visit Provider Internal Medicine | DX: Z01.118 Encounter for examination of ears and hearing with other abnormal findings (principal); H90.3 Sensorineural hearing loss, bilateral | CPT/HCPCS: V5299 ==

== ENCOUNTER → 2022-11-13 10:51 | Outpatient (BNVA) | payer MEDICARE, SELFPAY | PROVIDERS: PCP Internal Medicine; Visit Provider Dietitian, Registered | DX: E11.9 Type 2 diabetes mellitus without complications (principal) | CPT/HCPCS: 97802 ==

== ENCOUNTER → 2022-11-25 10:40 | Outpatient (BNVA) | payer MEDICARE, SELFPAY | PROVIDERS: PCP Internal Medicine; Visit Provider Registered Nurse Diabetes Educator | DX: E11.9 Type 2 diabetes mellitus without complications (principal) | CPT/HCPCS: 99211 ==

== ENCOUNTER 2022-12-03 10:02 | Day surgery (SDC) | payer MEDICARE, SELFPAY ==
[2022-11-29 10:29] VITALS: BMI 25.2
--- NOTE | 2022-12-02 11:01 | P.CONAN_ITS ---
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 (Acute) Pulmonary emboli (Acute) Claudication (Acute) COPD (chronic obstructive pulmonary disease) (Acute) Hyperlipidemia (Acute) Lung nodule, solitary (Acute) HTN (hypertension) (Acute) Diabetes (Acute) Past Medical History Medical History 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 Mother No problems noted. Daughter No problems noted. Brother Myocardial infarction Family history of problems with anesthesia: No Surgical History Surgical History History of endoscopy History of knee replacement History of surgery Hx of appendectomy Hx of cataract removal with insertion of prosthetic lens Hx of cataract removal with insertion of prosthetic lens Hx of cholecystectomy Hx of colonoscopy Previous back surgery History of Problems with Anesthesia: No Social History Social History Household Members: Family Household Members Other:: older daughter, grand daughter 9 yr old Housing: House Are you a primary nurse wound care to a significant other at home: No Do you presently have visiting nurse or other home services: No Alcohol intake: never Patient Tobacco Use Status: Former Tobacco user Cigarette Packs Per Day: 2.5 Years Smoked: 30 e-Cigarette/Vaping Use: Never Used Second Hand Smoke Exposure: No Are you DNR?: No Advance Directives: No Advance Directives Information Provided: Yes Recently lost weight without trying: No Nutrition Risks: No Nutritional Risk service: No Current occupational status: retired Current occupational exposures/hazards: No Cognitive needs: No Hearing needs: Yes Vision needs: No Meds Allergies Allergy/AdvReac Type Severity Reaction Status Date / Time amoxicillin [AMOXICILLIN] Allergy Severe VOMITING Verified 11/06/22 11:43 Sulfa (Sulfonamide Allergy Severe HIVES Verified 11/06/22 11:43 Antibiotics) [SULFA (SULFONAMIDE ANTIBIOTICS)] losartan Allergy Intermediate hyperkalemi Verified 11/29/22 10:23 a moxifloxacin [From Avelox] Allergy Unknown Pt does Verified 11/06/22 11:43 not remeber lisinopril AdvReac Intermediate cough Verified 11/29/22 10:23 pravastatin AdvReac Intermediate diarrhea Verified 11/29/22 10:23 sitagliptin [Januvia] AdvReac Intermediate stomach Verified 11/29/22 10:23 upset Home Medications Medication Instructions Recorded Confirmed Last Taken Type omega-3 fatty acids 1,000 mg 1,000 mg PO DAILY 12/12/20 11/29/22 11/24/22 His tory capsule (Fish Oil Concentrate) aspirin 81 mg tablet,delayed 81 mg PO DAILY 12/03/22 12/03/22 Unknown History release Exam Exam Date and Time: December 02, 2022 1101 Height,Weight and Vital Signs: Height 6 ft Weight 84.368 kg Pertinent Lab Results Pertinent Lab Results: Laboratory Tests 04/08/22 10/22/22 06:59 06:09 WBC 11.7 H Hgb 14.3 Hct 43.2 Plt Count 294 Sodium 140 Potassium 4.4 Chloride 104 Carbon Dioxide 30 H BUN 14 Creatinine 0.89 Assessment and Plan Assessment Anesthesia Assessment: Chart Reviewed Final Anesthetic Review Family History of Problems with Anesthesia: No History of Problems with Anesthesia: No Documented by User: Devon Bean MD 12/03/22 11:15 [facility] Past Medical History Medical History 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 Mother No problems noted. Daughter No problems noted. Brother Myocardial infarction Surgical History Surgical History History of endoscopy History of knee replacement History of surgery Hx of appendectomy Hx of cataract removal with insertion of prosthetic lens Hx of cataract removal with insertion of prosthetic lens Hx of cholecystectomy Hx of colonoscopy Previous back surgery Social History Social History Household Members: Family Household Members Other:: older daughter, grand daughter 9 yr old Housing: House Are you a primary nurse wound care to a significant other at home: No Do you presently have visiting nurse or other home services: No Alcohol intake: never Patient Tobacco Use Status: Former Tobacco user Cigarette Packs Per Day: 2.5 Years Smoked: 30 e-Cigarette/Vaping Use: Never Used Second Hand Smoke Exposure: No Are you DNR?: No Advance Directives: No Advance Directives Information Provided: Yes Recently lost weight without trying: No Nutrition Risks: No Nutritional Risk service: No Current occupational status: retired Current occupational exposures/hazards: No Cognitive needs: No Hearing needs: Yes Vision needs: No Meds Allergies Allergy/AdvReac Type Severity Reaction Status Date / Time amoxicillin [AMOXICILLIN] Allergy Severe VOMITING Verified 11/06/22 11:43 Sulfa (Sulfonamide Allergy Severe HIVES Verified 11/06/22 11:43 Antibiotics) [SULFA (SULFONAMIDE ANTIBIOTICS)] losartan Allergy Intermediate hyperkalemi Verified 11/29/22 10:23 a moxifloxacin [From Avelox] Allergy Unknown Pt does Verified 11/06/22 11:43 not remeber lisinopril AdvReac Intermediate cough Verified 11/29/22 10:23 pravastatin AdvReac Intermediate diarrhea Verified 11/29/22 10:23 sitagliptin [Januvia] AdvReac Intermediate stomach Verified 11/29/22 10:23 upset Home Medications Medication Instructions Recorded Confirmed Last Taken Type omega-3 fatty acids 1,000 mg 1,000 mg PO DAILY 12/12/20 11/29/22 11/24/22 History capsule (Fish Oil Concentrate) aspirin 81 mg tablet,delayed 81 mg PO DAILY 12/03/22 12/03/22 Unknown History release Exam Airway Mallampati Class: II TM Dist: >3cm Neck ROM: Full Loose/Missing/Broken Teeth: Yes Assessment and Plan Assessment Anesthesia Assessment: Anesthesia Plan Discussed Final Anesthetic Review NPO: Yes ASA Class: III Final Preanesthetic Review: No Changes in Pt Med Stat, Meds/Allgs Chart Reviewed, Consent Obtained/Reviewed and Anes Risks/Benef Reviewed Patient Risk: Intermediate Procedure Risk: Low Anesthetic Plan Anesthetic Plan: MAC: Disposition: Standard PACU
[2022-12-03 10:06] VITALS: BP 129/66; PULSE 81; RESP 20; TEMP 36.8; O2SAT 96
[2022-12-03 10:29] LABS: Glucose, Whole Blood 133 mg/dL (60-115)
--- NOTE | 2022-12-03 10:36 | MHC.SHP ---
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 Claudication COPD (chronic obstructive pulmonary disease) Diabetes Dysphagia Hard of hearing History of postoperative nausea and vomiting HTN (hypertension) Hyperlipidemia Lung nodule, solitary Pulmonary emboli) History of Previous Operations: Relevant previous surgery/procedure and date(s) (History of endoscopy History of knee replacement History of surgery Hx of appendectomy Hx of cataract removal with insertion of prosthetic lens Hx of cataract removal with insertion of prosthetic lens Hx of cholecystectomy Hx of colonoscopy Previous back surgery) Allergies: Allergies Allergy/AdvReac Type Severity Reaction Status Date / Time amoxicillin [AMOXICILLIN] Allergy Severe VOMITING Verified 11/06/22 11:43 Sulfa (Sulfonamide Allergy Severe HIVES Verified 11/06/22 11:43 Antibiotics) [SULFA (SULFONAMIDE ANTIBIOTICS)] losartan Allergy Intermediate hyperkalemi Verified 11/29/22 10:23 a moxifloxacin [From Avelox] Allergy Unknown Pt does Verified 11/06/22 11:43 not remeber lisinopril AdvReac Intermediate cough Verified 11/29/22 10:23 pravastatin AdvReac Intermediate diarrhea Verified 11/29/22 10:23 sitagliptin [Januvia] AdvReac Intermediate stomach Verified 11/29/22 10:23 upset Review of Systems Sugical H&P ROS: Negative: Constitution, Cardiovascular, Respiratory, Neurological, Psychiatric, Hem-Onc, Allergic/Immunologic, Gastrointestinal, Genitourinary, Musculoskeletal, Integumentary, Endocrine and Eyes/Ears/Nose/Throat Exam Surgical H&P Exam: Normal: HEENT, Normal: Heart, Normal: Lungs, Normal: Extremities, Normal: Abdomen, Normal: Skin and Normal: Neurological Plan Diagnosis/Plan: Unchanged I have reviewed the history and physical and performed a pertinent physical examination on my patient. No changes have occurred unless specified. Time Spent With Patient Time: Total time managing care of this patient today ____ minutes.
[2022-12-03] MEDS: Lactated Ringers 1,000 ML 100 ML IVCONT (10:43)
--- NOTE | 2022-12-03 11:44 | W.PM.OPN ---
Operative Note Operative Note Date of Service: 12/03/22 Narrative: Procedure Description: EGD Indication: hx of dysphagia Anesthesia: MAC FLEXIBLE TRANSORAL UPPER GASTROINTESTINAL ENDOSCOPY UPPER ENDOSCOPY Consent: Indications for the procedure and potential complications of bleeding, perforation, reaction to medications and missed diagnosis were discussed with the patient and informed consent was obtained. Instrument: Olympus GIF H 190 J mid size upper endoscope Monitoring: Vital signs and clinical assessment, continuous EKG monitoring, Pulse oximetry, Carbon Dioxide monitoring and blood pressure monitoring were done throughout the procedure. Procedure: The patient was placed in the left lateral decubitis position and pre-procedure medications were administered and a bite block was placed. The endoscope was inserted into the mouth and advanced under direct vision to the third part of duodenum. A careful inspection was made as the upper endoscope was withdrawn including a retroflexed examination of the proximal stomach; Findings and interventions are described below. Findings: Larynx:normal Esophagus: GE junction at 38 cm, diaphragm hiatus at 42 cm, consistent with 4 cm hiatal hernia, schatxki ring noted, and dilated using balloon to 17 mm with small tear noted, bx taken from GEJ and distal esophagus Stomach: Patchy gastric erythema. Biopsies were obtained. Grade 2 flap valve on retroflexed examination of the cardia. Duodenum: Normal bulb and descending duodenum, Intervention: Biopsies as noted above, balloon dilation Impression/Findings: schatzki ring hiatal hernia gastritis PLAN: cont with PPI as he has had no recurrence of sx with it can repeat dilation prn
[2022-12-03 11:52] VITALS: BP 110/43; PULSE 89; RESP 22; TEMP 36.6; O2SAT 96
[2022-12-03 12:07] VITALS: BP 120/61; PULSE 88; RESP 19; O2SAT 96
[2022-12-03 12:22] VITALS: BP 134/59; PULSE 72; RESP 16; TEMP 36.4; O2SAT 97
== END 2022-12-03 12:45 | disposition home or self-care (01) ==
PROVIDERS: PCP Internal Medicine; Visit Provider Internal Medicine Gastroenterology
PROC: (CPT 43249; principal; 2022-12-03 11:50)
DX: R13.10 Dysphagia, unspecified (principal); K22.2 Esophageal obstruction; K29.50 Unspecified chronic gastritis without bleeding; K44.9 Diaphragmatic hernia without obstruction or gangrene; J44.9 Chronic obstructive pulmonary disease, unspecified; R06.2 Wheezing; I26.99 Other pulmonary embolism without acute cor pulmonale; I10 Essential (primary) hypertension; E78.5 Hyperlipidemia, unspecified; E11.9 Type 2 diabetes mellitus without complications; Z79.84 Long term (current) use of oral hypoglycemic drugs; Z79.899 Other long term (current) drug therapy; Z88.1 Allergy status to other antibiotic agents; Z88.2 Allergy status to sulfonamides; Z88.8 Allergy status to other drugs, medicaments and biological substances; Z87.891 Personal history of nicotine dependence
CPT/HCPCS: 43249; 43239; 82947; 88305; 88342; C1726

== ENCOUNTER → 2022-12-23 09:30 | Outpatient (BNVA) | payer MEDICARE, SELFPAY | PROVIDERS: PCP Internal Medicine; Visit Provider Internal Medicine Gastroenterology | DX: K21.9 Gastro-esophageal reflux disease without esophagitis (principal); K22.2 Esophageal obstruction; R06.81 Apnea, not elsewhere classified; T18.108D Unspecified foreign body in esophagus causing other injury, subsequent encounter | CPT/HCPCS: 99212 ==

== ENCOUNTER 2023-01-09 10:10 | Outpatient (AMB) | payer MEDICARE, SELFPAY ==
--- NOTE | 2023-01-09 10:27 | A.OFFVIS_ITS ---
Intake VS Expanded 01/09/23 10:30 Height 5 ft 11 in Weight 197 lb 5.019 oz BMI 27.5 Intake Visit Reasons: T2DM Allergies amoxicillin [AMOXICILLIN] Allergy (Severe, Verified 12/26/22 11:26) VOMITING Sulfa (Sulfonamide Antibiotics) [SULFA (SULFONAMIDE ANTIBIOTICS)] Allergy (Severe, Verified 12/26/22 11:26) HIVES losartan Allergy (Intermediate, Verified 12/26/22 11:26) hyperkalemia moxifloxacin [From Avelox] Allergy (Unknown, Verified 12/26/22 11:26) Pt does not remeber lisinopril Adverse Reaction (Intermediate, Verified 12/26/22 11:26) cough metformin Adverse Reaction (Intermediate, Verified 12/26/22 12:16) Diarrhea pravastatin Adverse Reaction (Intermediate, Verified 12/26/22 11:26) diarrhea sitagliptin [Januvia] Adverse Reaction (Intermediate, Verified 12/26/22 11:26) stomach upset HPI Nutrition Presentation Details Pt presents for MNT follow up for T2DM Patient reports doing well, following healthy plate method and also working on choosing or reducing amount of fatty foods. Patient reports having good blood glucose levels reports his fasting blood sugars range from 80-100 his not monitoring blood glucose after meals. 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 Mother No problems noted. Daughter No problems noted. Brother Myocardial infarction Social History Household Members: Family Household Members Other:: older daughter, grand daughter 9 yr old Housing: House Are you a primary care support representative to a significant other at home: No Do you presently have visiting nurse or other home services: No Alcohol intake: never Patient Tobacco Use Status: Former Tobacco user Cigarette Packs Per Day: 2.5 Years Smoked: 30 e-Cigarette/Vaping Use: Never Used Second Hand Smoke Exposure: No service: No Current occupational status: retired Current occupational exposures/hazards: No Cognitive needs: No Hearing needs: Yes Vision needs: No Assessment & Plan Assessment & Plan (1) Diabetes: Code(s): E11.9 - Type 2 diabetes mellitus without complications Plan: Est kcal needs as per MSJ: 2276 (40% carb, 30% protein/fat) Est fluid needs as per 25-30 ml/d: 2746-0609 Est prot per day as per 1 g/kg bw: 85 Recommend fiber intake : 8-10 g per day and gradually increase to 25-28 g per day for women or as tolerated Recommend sodium intake per day: less than 2000 mg Educated patient on: ( R = reviewed V = verbalizes understanding N/R = needs review N/A = not applicable * Food sources of carbohydrate, adequate serving sizes and its role in various health conditions: R ,v * Differences between complex carbohydrates a simple carbohydrates, role of fiber in diet: R ,v * Differences between types of fats and role in diet (mono on saturated fat fatty acids, saturated fatty acids, trans fats): basic low fat, v * Food sources of sodium in salt and healthy modifications for heart health in kidney health: R, v * Healthy plate method concept: R , v * Physical activity: Benefits a precaution: R , v * Hypoglycemia protocol (rule of 15): R , v * Dietary prevention of Hyperglycemia: R , v Patient Instructions: Continue following healthy plate method and including a variety of foods in diet Include a variety of protein sources of foods (legumes, whole grains, lean beef, poultry, fish, eggs, vegetables) Keep physically active as able Maintain hydrated by having water with meals/snacks and whenever feeling thirsty monitor blood glucose alternating between fasting and 2 hours after a meal, contact your doctor if blood sugar above 180 after meals and higher than 130 in fasting state unless otherwise specified by your doctor Treat low blood sugar following rule of 15 (1/2 cup of juice or 3 glucose tablets, re check blood sugar 15 minutes after , repeat treatment if blood sugar continue below 70) contact your doctor to notify low blood sugar episodes for further assessment. Coding Level of Care Code Nutr Indiv Intake (01614) Diagnoses Diabetes E11.9 Time Spent (min) 30
[2023-01-09 10:30] VITALS: BMI 27.5
== END 2023-01-09 10:51 | disposition home or self-care (01) ==
PROVIDERS: PCP Internal Medicine; Visit Provider Dietitian, Registered
DX: E11.9 Type 2 diabetes mellitus without complications (principal)

== ENCOUNTER → 2023-01-09 10:10 | Outpatient (BNVA) | payer MEDICARE, SELFPAY | PROVIDERS: Visit Provider Dietitian, Registered | DX: E11.9 Type 2 diabetes mellitus without complications (principal) | CPT/HCPCS: 97802 ==

== ENCOUNTER → 2023-01-29 10:15 | Outpatient (BNVA) | payer MEDICARE, SELFPAY | PROVIDERS: PCP Internal Medicine; Visit Provider Internal Medicine Endocrinology, Diabetes & Metabolism | DX: E11.9 Type 2 diabetes mellitus without complications (principal) | CPT/HCPCS: 82947; 83036; 99212 ==

== ENCOUNTER 2023-01-29 10:16 | Outpatient (AMB) | payer MEDICARE, SELFPAY ==
--- NOTE | 2023-01-29 10:17 | MHC.OFFVIS ---
Intake Vital Signs 01/29/23 10:21 Height 5 ft 11 in Weight 186 lb 1.122 oz BMI 25.9 BP 110/56 L Blood Pressure Location Rt brachial Position Sitting Pulse 92 Pulse Source Pulse Oximeter Intake Visit Reasons: T2DM Intake Note: Patient present today to follow up on Type 2 Diabetes Mellitus. Last Diabetic Eye exam: October 2022 Last Podiatry Visit: Does not see a Shirt Turner Random Glucose: 166mg/dl HgA1C: 7.0% Clin Tech Required: No Accompanied by: Self / Same As Patient Allergies amoxicillin [AMOXICILLIN] Allergy (Severe, Verified 01/29/23 10:22) VOMITING Sulfa (Sulfonamide Antibiotics) [SULFA (SULFONAMIDE ANTIBIOTICS)] Allergy (Severe, Verified 01/29/23 10:22) HIVES losartan Allergy (Intermediate, Verified 01/29/23 10:22) hyperkalemia moxifloxacin [From Avelox] Allergy (Unknown, Verified 01/29/23 10:22) Pt does not remeber lisinopril Adverse Reaction (Intermediate, Verified 01/29/23 10:22) cough metformin Adverse Reaction (Intermediate, Verified 01/29/23 10:22) Diarrhea pravastatin Adverse Reaction (Intermediate, Verified 01/29/23 10:22) diarrhea sitagliptin [Januvia] Adverse Reaction (Intermediate, Verified 01/29/23 10:22) stomach upset Medication List - Last Reconciled 01/29/23 by Constantino Padilla MD amlodipine 10 mg PO DAILY aspirin 81 mg PO DAILY bisoprolol-hydrochlorothiazide 10-6.25 mg 1 tab PO DAILY blood-glucose meter (OneTouch Ultra2 Meter) As directed dulaglutide (Trulicity) 1.5 mg (0.5 mL) subcut QWEEK bbeomyyykcc-sqgzzfoog-dccgdvbz 100-62.5-25 mcg (Trelegy Ellipta) 1 ea inhalation DAILY insulin glargine (Lantus Solostar U-100 Insulin) 48 units (0.48 mL) subcut QPM losartan 50 mg PO DAILY omega-3 fatty acids (Fish Oil Concentrate) 1,000 mg PO DAILY pantoprazole 20 mg PO DAILY pen needle, diabetic (BD Ultra-Fine Micro Pen Needle) 1 qd rosuvastatin 20 mg PO DAILY HPI HPI Comments History of Present Illness Details 67 YO M who is seen in consultation for T2DM at the request of PCP. Initially diagnosed with T2DM in age 49 . Never saw endo before Was initially started on treatment with metformin . Current regimen metformin 1000 mg QD not taking due to diarrhea Trulicity 1.5 mg Qwkly Lantus 45 units . Glucometer download shows he is checking his point cares once a day. Ranges 07/24/1997 with average glucose 130. 94% range with 6% hyperglycemia and no hypoglycemia Reports occasional hypoglycemia Most recent A1C 10.5 on 07/07/22, [down] from prior [] on []. Family history of T2DM in uncle . Son has Type 1 DM Has eyes checked yearly, last eye exam couple of mos s a go , denies retinopathy. Denies neuropathy, , not sees podiatry. Denies nephropathy, on MANDEEP/ARB. . Has HLD, on statin. Denies CAD but has PVD . Not Had diabetes education. 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 Mother No problems noted. Daughter No problems noted. Brother Myocardial infarction Social History Household Members: Family Household Members Other:: older daughter, grand daughter 9 yr old Housing: House Are you a primary child care director to a significant other at home: No Do you presently have visiting nurse or other home services: No Alcohol intake: never Patient Tobacco Use Status: Former Tobacco user Cigarette Packs Per Day: 2.5 Years Smoked: 30 e-Cigarette/Vaping Use: Never Used Second Hand Smoke Exposure: No service: No Current occupational status: retired Current occupational exposures/hazards: No Cognitive needs: No Hearing needs: Yes Vision needs: No Physical Exam Vital Signs: Last Vital Signs Pulse 92 01/29/23 10:21 BP 110/56 L 01/29/23 10:21 BMI result Body Mass Index 25.9 Absence of Cushingoid features. Absence of acromegalic features. Neck exam reveals nl size thyroid about 15 gms. No thyroid nodules palpable. No carotid bruits present. Lungs CTA. Heart S1 S2, Reg R/R. No M/R/ G. Skin exam reveals absence of vitiligo or acanthosis nigricans. Abdominal exam reveals Soft NT/ND with NA BS. No organomegaly present. Neck Other: . Extrem Other: Visual exam of foot performed. No ulcerations or open lesions. No onchomycosis, no callouses.Pulses 2 + distally Sensation intact to monofilament exam. Vibratory sensation sensed is decreased with 128 Hz tuning fork Results Reviewed Results Reviewed: 01/29/23 10:29 Glucose, Whole Blood Routine Laboratory Last Values Glucose (Clinic) 166 mg/dL (60-115) H 01/29/23 10:29 Assessment & Plan Assessment & Plan (1) Diabetes: Code(s): E11.9 - Type 2 diabetes mellitus without complications Plan: This 67-year-old white male with a history of type 2 diabetes being treated with metformin, Trulicity and basal insulin with excellent improved glycemic control and no known microvascular or macrovascular complications At this point, patient returned to the care of his primary care provider. Should his HbA1c deteriorate, returned back to endocrine Orders: Orders AMB Hemoglobin A1c Today E11.9 - Type 2 diabetes mellitus without complications Coding Level of Care Code Est Pt Level 4 (81892) Diagnoses Diabetes E11.9
[2023-01-29 10:21] VITALS: BP 110/56; PULSE 92; BMI 25.9
[2023-01-29 10:34] LABS: Glucose, Whole Blood 166 mg/dL (60-115)
== END 2023-01-29 10:45 | disposition home or self-care (01) ==
PROVIDERS: PCP Internal Medicine; Visit Provider Internal Medicine Endocrinology, Diabetes & Metabolism
DX: E11.9 Type 2 diabetes mellitus without complications (principal)
CPT/HCPCS: 99214

== ENCOUNTER 2023-06-24 06:04 | Outpatient (REF) | payer MEDICARE, SELFPAY ==
[2023-06-24 11:07] LABS: MANUAL DIFF FLAG NO
[2023-06-24 11:17] LABS: Basophils Absolute Auto 0.1 X10*3/uL (0.0-0.2); Basophils Percent Auto 0.9 % (0-2); Eosinophils Absolute Auto 1.4 X10*3/uL (0.0-0.4); Eosinophils Percent Auto 13.1 % (0-4); Hematocrit 46.9 % (42.0-52.0); Hemoglobin 15.4 g/dl (14.0-18.0); Imm Gran Abs Auto 0.03 X10*3/uL (0.00-0.03); Imm Gran Pct Auto 0.3 % (0.0-0.4); Lymphocytes Absolute Auto 3.1 X10*3/uL (1.2-4.9); Lymphocytes Percent Auto 28.4 % (20-40); Mean Corpuscular HGB Conc 32.8 g/dl (31.0-36.0); Mean Corpuscular Hemoglobin 27.7 pg (27.0-33.0); Mean Corpuscular Volume 84.5 fL (80.0-98.0); Mean Platelet Volume 10.6 fL (9.4-12.4); Monocytes Absolute Auto 0.8 X10*3/uL (0.1-1.2); Monocytes Percent Auto 7.8 % (2-11); Neutrophils Absolute Auto 5.3 x10*3/uL (2.0-8.3); Neutrophils Percent Auto 49.5 % (45-73); Platelet Count 309 X10*3/uL (160-400); Red Blood Count 5.55 X10*6/uL (4.60-5.80); Red Cell Distribution Width 13.2 % (11.0-16.0); White Blood Count 10.7 X10*3/uL (4.8-10.8)
[2023-06-24 11:36] LABS: Estimated Average Glucose 166 mg/dL; Hemoglobin A1c % 7.4 % (<6.0)
[2023-06-24 12:07] LABS: Alanine Aminotransferase 32 U/L (0-40); Albumin Level 4.1 g/dL (3.5-5.0); Alkaline Phosphatase 54 U/L (39-117); Anion Gap 14 (12-20); Aspartate Amino Transferase 29 U/L (5-37); Bilirubin Total 0.3 mg/dL (0.0-1.0); Blood Urea Nitrogen 12 mg/dL (9-16); Calcium 9.2 mg/dL (8.4-10.2); Carbon Dioxide 27 mmol/L (22-29); Chloride 102 mmol/L (96-108); Cholesterol 91 mg/dL (<200); Estimated Glomerular Filt Rate > 60; Glucose Fasting 155 mg/dL (60-99); HDL Cholesterol 35 mg/dL (>40); LDL Cholesterol Calculated 36 mg/dL (<100); Potassium 4.3 mmol/L (3.3-5.1); Sodium 139 mmol/L (135-145); Total Protein 7.1 g/dL (6.5-8.0); Triglycerides 100 mg/dL (<150)
== END 2023-06-24 06:05 | disposition home or self-care (01) ==
LOC: HO.HMGCLDS 06:04
PROVIDERS: PCP Internal Medicine; Visit Provider Internal Medicine
DX: E11.9 Type 2 diabetes mellitus without complications (principal); I10 Essential (primary) hypertension; J44.9 Chronic obstructive pulmonary disease, unspecified
CPT/HCPCS: 36415; 80053; 80061; 83036; 85025

== ENCOUNTER 2023-07-03 09:21 | Outpatient (AMB) | payer MEDICARE, SELFPAY ==
[2023-07-03 09:54] VITALS: BP 120/60; PULSE 56; O2SAT 94; BMI 26.5
--- NOTE | 2023-07-03 09:54 | MHC.PC.OV ---
Vital Signs 07/03/23 09:54 07/03/23 10:11 Height 5 ft 11 in Weight 190 lb BMI 26.5 BP 120/60 120/64 Blood Pressure Location Lt brachial Rt brachial Position Sitting Sitting Pulse 56 Pulse Source Pulse Oximeter Pulse Oximetry (%) 94 Oxygen Delivery Method Room Air Intake Visit Reasons: Annual PE Intake Note: Pt is here today for PE. Pt states that he needs a refill on Lansoprazole. Pt also would like to discuss his BP meds. Allergies amoxicillin [AMOXICILLIN] Allergy (Severe, Verified 07/03/23 09:57) VOMITING Sulfa (Sulfonamide Antibiotics) [SULFA (SULFONAMIDE ANTIBIOTICS)] Allergy (Severe, Verified 07/03/23 09:57) HIVES losartan Allergy (Intermediate, Verified 07/03/23 09:57) hyperkalemia moxifloxacin [From Avelox] Allergy (Unknown, Verified 07/03/23 09:57) Pt does not remeber lisinopril Adverse Reaction (Intermediate, Verified 07/03/23 09:57) cough metformin Adverse Reaction (Intermediate, Verified 07/03/23 09:57) Diarrhea pravastatin Adverse Reaction (Intermediate, Verified 07/03/23 09:57) diarrhea sitagliptin [Januvia] Adverse Reaction (Intermediate, Verified 07/03/23 09:57) stomach upset Medication List - Last Reconciled 07/03/23 by Marisel To MD amlodipine 10 mg PO DAILY aspirin 81 mg PO DAILY bisoprolol-hydrochlorothiazide 10-6.25 mg 1 tab PO DAILY blood-glucose meter (OneTouch Ultra2 Meter) As directed dulaglutide (Trulicity) 1.5 mg (0.5 mL) subcut QWEEK bngtcxkppkp-opooittko-fzfabxov 100-62.5-25 mcg (Trelegy Ellipta) 1 ea inhalation DAILY insulin glargine (Lantus Solostar U-100 Insulin) 48 units (0.48 mL) subcut QPM lansoprazole 30 mg PO DAILY losartan 50 mg PO DAILY omega-3 fatty acids (Fish Oil Concentrate) 1,000 mg PO DAILY pen needle, diabetic (BD Ultra-Fine Micro Pen Needle) 1 qd rosuvastatin 20 mg PO DAILY Tobacco use date assessed: 07/03/23 Dental Screening Dental Screen Date: 07/03/23 Did you have a dental visit in the last 12 months?: Yes Did you have a dental problem in the last 6 months where you did not have access to dental care?: No Was dental information given to patient?: Patient has dentist HPI Annual PE HPI Details Pt presents for PE. 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 Mother No problems noted. Daughter No problems noted. Brother Myocardial infarction Social History Household Members: Family Household Members Other:: older daughter, grand daughter 9 yr old Housing: House Are you a primary vehicle care specialist to a significant other at home: No Do you presently have visiting nurse or other home services: No Alcohol intake: never Patient Tobacco Use Status: Former Tobacco user Cigarette Packs Per Day: 2.5 Years Smoked: 30 e-Cigarette/Vaping Use: Never Used Second Hand Smoke Exposure: No service: No Current occupational status: retired Current occupational exposures/hazards: No Cognitive needs: No Hearing needs: Yes Vision needs: No Questionnaire PHQ-9 Over the last 2 weeks, how often have you been bothered by any of the following problems? 1. Little interest or pleasure in doing things: not at all 2. Feeling down, depressed, or hopeless: not at all 3. Trouble falling or staying asleep, or sleeping too much: not at all 4. Feeling tired or having little energy: not at all 5. Poor appetite or overeating: not at all 6. Feeling bad about yourself - or that you are a failure or have let yourself or your family down: not at all 7. Trouble concentrating on things, such as reading the newspaper or watching television: not at all 8. Moving or speaking so slowly that other people could have noticed. Or the opposite - being so fidgety or restless that you have been moving around a lot more than usual: not at all 9. Thoughts that you would be better off or of hurting yourself in some way: not at all Total score: 0 Depression Screening Interpretation: Negative Depression Screening Done: Yes Source: Developed by Drs. Constantino Simeon, Aixa Rivera, Michael Beavers and colleagues, with an educational shakir from [employer]. Thrive Questionnaire Date Thrive assessed: 07/03/23 I am a: Patient What is your living situation today?: I have a steady place to live Within the past 12 months, did the food you bought not last and you didn't have the money to get more?: Never true Within the past 12 months, did you worry whether your food would run out before you got money to buy more?: Never true Do you have trouble paying for medicines?: No Do you have trouble getting transportation to medical appointments?: No Do you have trouble paying your heating and electricity bill?: No Do you have trouble taking care of your child, family member or friend?: No Do you have trouble with day-to-day activities such as bathing, preparing meals, shopping, managing finances, etc.?: No Are you currently unemployed and looking for a job?: No Are you interested in more education?: No Please select the resources that you would like help with: None SINA-7 AMB Questionnaire SINA-7 Date SINA - 7 assessed: 07/03/23 Feeling nervous, anxious, or on edge: 0 = Not at all Not being able to stop or control worryin = Not at all Worrying too much about different things: 0 = Not at all Trouble relaxin = Not at all Being so restless that it is hard to sit still: 0 = Not at all Becoming easily annoyed or irritable: 0 = Not at all Feeling afraid as if something awful might happen: 0 = Not at all Total SINA-7 score (0-4 normal; 5-9 mild; 10-14 moderate; 15-21 severe): 0 Source: Developed by Drs. Constantino Simeon, Aixa Rivera, Michael Beavers and colleagues, with an educational shakir from [employer]. Review of Systems Const All systems reviewed & are unremarkable except as noted in HPI and below Reports no additional complaints Eyes Reports no additional complaints ENT Reports no additional complaints Card Reports no additional complaints Resp Reports no additional complaints GI Reports no additional complaints Reports no additional complaints Physical exam (Primary Care) Vital Signs: Last Vital Signs Pulse 56 07/03/23 09:54 BP 120/64 07/03/23 10:11 Pulse Ox 94 07/03/23 09:54 Oxygen Delivery Method Room Air 07/03/23 09:54 BMI result Body Mass Index 26.5 Tobacco/Smoking Status: Tobacco use Status Tobacco use date assessed 07/03/23 07/03/23 09:58 Patient Tobacco Use Status Former Tobacco user 07/03/23 09:54 e-Cigarette/Vaping Use Never Used 07/03/23 09:54 PHQ-9: PHQ-9 Score PHQ-9: Total score 0 07/03/23 10:13 Depression Screening Interpretation: Negative Thrive Assessment: Date of Thrive Assessment Date Thrive assessed 07/03/23 07/03/23 10:13 Const General: no acute distress HENMT Head: Yes normal to inspection General nose exam: Normal external nose present Eyes General: appearance normal, both eyes and all related structures Neck Neck: Yes no lymphadenopathy and Yes supple Resp Effort & Inspection: normal respiratory effort Auscultation: clear to auscultation bilaterally Cardio Rhythm: regular rhythm Heart sounds: S1 normal heart sound present and S2 normal heart sound present GI Inspection: Yes normal to inspection Palpation (GI): Soft to palpation Percussion: Yes normal to percussion Auscultation: normal bowel sounds Extrem Other: DIABETIC FOOT EXAM SKIN IS INTACT MONOFILAMENT AND VIBRATION SENSATION INTACT BILATERALLY General: Yes no clubbing, cyanosis or edema Assessment and Plan Assessment & Plan (1) Diabetes: Code(s): E11.9 - Type 2 diabetes mellitus without complications Plan: A1C IS 7.4, ADA DIET INCREASE EXERCISE WEIGHT LOSS DISCUSSED WITH THE PATIENT HE WILL CONTINUE INSULIN AND TRULICITY FOLLOW-UP IN 4 MONTHS WITH A FASTING LABS BEFORE (2) HTN (hypertension): Code(s): I10 - Essential (primary) hypertension Plan: Continue current medications (3) Hyperlipidemia: Code(s): E78.5 - Hyperlipidemia, unspecified Plan: Continue statin (4) COPD (chronic obstructive pulmonary disease): Comment: Follow-up with pulmonology Code(s): J44.9 - Chronic obstructive pulmonary disease, unspecified Plan: Continue Trelegy (5) 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 Knox Code(s): K22.2 - Esophageal obstruction Plan: Continue PPI follow-up with GI (7) Annual physical exam: Code(s): Z00.00 - Encounter for general adult medical examination without abnormal findings Plan: Well-balanced diet regular physical activity discussed with the patient return in 4 months with a fasting labs before Orders: Orders Hemoglobin A1c 4 Months E11.9 - Type 2 diabetes mellitus without complications, E78.5 - Hyperlipidemia, unspecified, I10 - Essential (primary) hypertension Lipid Panel 4 Months E11.9 - Type 2 diabetes mellitus without complications, E78.5 - Hyperlipidemia, unspecified, I10 - Essential (primary) hypertension Complete Blood Count Auto Diff 4 Months E11.9 - Type 2 diabetes mellitus without complications, E78.5 - Hyperlipidemia, unspecified, I10 - Essential (primary) hypertension Comprehensive Atlas. 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
[2023-07-03 10:11] VITALS: BP 120/64
== END 2023-07-03 10:46 | disposition home or self-care (01) ==
PROVIDERS: PCP Internal Medicine; Visit Provider Internal Medicine
DX: Z00.00 Encounter for general adult medical examination without abnormal findings (principal); E11.69 Type 2 diabetes mellitus with other specified complication; J44.9 Chronic obstructive pulmonary disease, unspecified; I74.2 Embolism and thrombosis of arteries of the upper extremities; I10 Essential (primary) hypertension; E78.5 Hyperlipidemia, unspecified; K22.2 Esophageal obstruction
CPT/HCPCS: 99397

== ENCOUNTER 2023-07-09 14:05 | Day surgery (SDC) | payer MEDICARE, SELFPAY ==
[2023-07-09] VITALS (9 sets, daily range): BP systolic 105–140; BP diastolic 57–85; PULSE 61–90; RESP 14–18; TEMP 36.2–36.8; O2SAT 95–97; BMI 25.8
--- NOTE | 2023-07-09 14:08 | ED.GENADULT ---
HPI - General Adult General Chief complaint: Skin/Abscess/Foreign Body Stated complaint: FB in Throat Time Seen by Provider: 07/09/23 14:13 Source: patient and old records reviewed Mode of arrival: ambulatory Limitations: no limitations History of Present Illness HPI narrative: 68 yo male with PMH of HTN, DM, dysphagia - hiatal hernia, schatzki's ring prior esophageal FB with need for EGD and removal, PE but not on thinners only on baby aspirin, COPD, HLD ate boneless wings and celery with a friend - food became stuck hx of same in past with need for retrieval by Dr. Knox - most recently in September of 2022 also just had EGD back in November. He is compliant with his PPI. Not on thinners. Notes he usually gets glucagon and has tried nitro in the past and it does not work for him. MD complaint: food bolus impaction Onset (ago): day(s) (noon today) Location: mouth (throat) Radiation: non-radiation Severity: moderate Quality: dull and constant Relieving factors: none Exacerbating factors: other (swallowing) Associated symptoms: denies other symptoms Treatments prior to arrival: none Related Data Home Medications Medication Instructions Recorded Confirmed omega-3 fatty acids 1,000 mg 1,000 mg PO DAILY 12/12/20 07/03/23 capsule (Fish Oil Concentrate) aspirin 81 mg tablet,delayed 81 mg PO DAILY 12/03/22 07/03/23 release Previous Rx's Medication Instructions Recorded blood-glucose meter (OneTouch #1 ea 03/13/21 Ultra2 Meter) insulin glargine 100 unit/mL (3 48 unit (0.48 mL) subcut QPM #45 mL 07/24/22 mL) subcutaneous pen (Lantus Solostar U-100 Insulin) bisoprolol 10 1 tab PO DAILY #90 tabs 08/26/22 mg-hydrochlorothiazide 6.25 mg tablet dulaglutide 1.5 mg/0.5 mL 1.5 mg (0.5 mL) subcut QWEEK #6 mL 09/16/22 subcutaneous pen injector (Trulicity) losartan 50 mg tablet 50 mg PO DAILY #90 tabs 12/20/22 amlodipine 10 mg tablet 10 mg PO DAILY #90 tabs 02/20/23 rosuvastatin 20 mg tablet 20 mg PO DAILY #90 tabs 03/18/23 fluticasone fur. 100 mcg-umeclid 1 ea inhalation DAILY #180 ea 06/29/23 62.5 mcg-vilant 25 mcg inhalat.powder (Trelegy Ellipta) pen needle, diabetic 32 gauge x #100 ea 06/29/2306/26 (BD Ultra-Fine Micro Pen Needle) lansoprazole 30 mg capsule,delayed 30 mg PO DAILY #90 caps 07/03/23 release Allergies Allergy/AdvReac Type Severity Reaction Status Date / Time amoxicillin [AMOXICILLIN] Allergy Severe VOMITING Verified 07/09/23 14:15 Sulfa (Sulfonamide Allergy Severe HIVES Verified 07/09/23 14:15 Antibiotics) [SULFA (SULFONAMIDE ANTIBIOTICS)] losartan Allergy Intermediate hyperkalemi Verified 07/09/23 14:15 a moxifloxacin [From Avelox] Allergy Unknown Pt does Verified 07/09/23 14:15 not remeber lisinopril AdvReac Intermediate cough Verified 07/09/23 14:15 metformin AdvReac Intermediate Diarrhea Verified 07/09/23 14:15 pravastatin AdvReac Intermediate diarrhea Verified 07/09/23 14:15 sitagliptin [Januvia] AdvReac Intermediate stomach Verified 07/09/23 14:15 upset Review of Systems Review of Systems: Constitutional : No Fever, No Chills, No Fatigue ENT/Mouth : No sore throat, No Rhinorrhea Eyes: No Eye Pain, No Swelling, No Redness Cardiovascular : No Chest Pain, No SOB, No Dyspnea on Exertion Respiratory : No Cough, No Sputum Gastrointestinal : No Nausea, No Vomiting, No Diarrhea, No abdominal Pain Genitourinary : No Dysuria, No Urinary Frequency, No Hematuria, Musculoskeletal : No joint pain, No Myalgias, No Joint Swelling Skin : No Skin Lesions, No rash Neuro : No Weakness, No Numbness, No Dizziness, no Headache Psych : No Anxiety/Panic, No Depression All other systems reviewed and are negative PMFSH Past Medical History Attestation statement: The following information was validated with the patient. 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 Mother No problems noted. Daughter No problems noted. Brother Myocardial infarction Social History Social History Household Members: Family Household Members Other:: older daughter, grand daughter 9 yr old Housing: House Are you a primary health care marketing manager to a significant other at home: No Do you presently have visiting nurse or other home services: No Alcohol intake: never Patient Tobacco Use Status: Former Tobacco user Cigarette Packs Per Day: 2.5 Years Smoked: 30 Smoked in Last 30 Days: No e-Cigarette/Vaping Use: Never Used Second Hand Smoke Exposure: No Use of substances other than those prescribed or required for medical reasons: No Advance Directives: No Advance Directives Information Provided: Yes service: No Current occupational status: retired Current occupational exposures/hazards: No Cognitive needs: No Hearing needs: Yes Vision needs: No Physical Exam ED Vital Signs: Vital Signs - 24 hr 07/09/23 14:08 07/09/23 15:13 Temperature 98.2 F 97.9 F Pulse Rate 85 61 Respiratory Rate 18 16 Blood Pressure 106/70 132/57 L Pulse Oximetry 95 97 Oxygen Delivery Method Room Air Room Air BMI result Body Mass Index 25.8 Appearance: Alert. Oriented X3. No acute distress. spitting up saliva Eyes: Pupils equal, round and reactive to light. ENT: Pharynx normal. Voice is a little hoarse but no stridor Neck: Normal inspection. Neck supple. CVS: Normal heart rate and rhythm. Pulses normal. Respiratory: No respiratory distress. Breath sounds normal. Abdomen: Soft and nontender. Skin: Skin warm and dry. Normal skin color. Normal skin turgor. Extremities: No lower extremity edema. No calf ttp Neuro: Oriented X 3. No motor deficit. No sensory deficit. Course Course Course Narrative: RME:?68 yo male hx of COPD, HTN, DM, HLD, PE, history of Schatski's ring with esophageal obstruction requiring dilation in the past here w/ food bolus in throat after eating chicken and celery when he felt the food become lodged in his throat 2 hours ago. cannot get food or drink down. follows with Dr. Knox for hiatal hernia. patient diabetic, concerned about sugars since he can't eat. airway patent. no visible FB. controlling secretions and speaking in complete sentences. will obtain soft tissue xr. Full HPI, ROS and PE to be performed by the primary ED provider. Reevaluation(s) Reevaluation #1: Dr. Ruby to take patient to OR Medications Administered Generic Name Dose Route Start Last Admin Trade Name Freq PRN Reason Stop Dose Admin Sodium Chloride 1,000 mls @ 100 mls/hr 07/09/23 14:15 07/09/23 14:41 Ns IVCONT 100 mls/hr .Q10H IOANA Administration Medical Decision Making Medical Decision Making [facility] Narrative: 68 yo male with PMH of HTN, DM, dysphagia - hiatal hernia, schatzki's ring prior esophageal FB with need for EGD and removal, PE but not on thinners only on baby aspirin, COPD, HLD here with difficulty swallowing saliva cannot tolerate water since noon after eating celery and boneless wings with a friend at noon. In past has failed glucagon and nitro. At this time labs, EKG and message sent to Dr. Elkins at 230pm. Differential Diagnosis Differential Diagnoses: The differential diagnosis associated with the presentation includes esophageal FB, hiatal hernia, schatzki's ring Admission/Observation Consideration of admission/observation: Escalation of care including admission/observation considered until seen by GI admit for EGD Consult Healthcare Provider Management of the patient was discussed with: Pv Design Engineer Lab Data [facility] Lab Attestation statement: I reviewed the patient's lab results. 07/09/23 14:37 07/09/23 14:37 Labs: Lab Results 07/09/23 Range/Units 14:37 WBC 12.2 H (4.8-10.8) X10*3/uL RBC 5.46 (4.60-5.80) X10*6/uL Hgb 15.5 (14.0-18.0) g/dl Hct 45.9 (42.0-52.0) % MCV 84.1 (80.0-98.0) fL MCH 28.4 (27.0-33.0) pg MCHC 33.8 (31.0-36.0) g/dl RDW 13.1 (11.0-16.0) % Plt Count 306 (160-400) X10*3/uL MPV 10.1 (9.4-12.4) fL Absolute Nucleated RBC 0.000 (0.0-0.012) X10*3/uL Nucleated RBC % (auto) 0.0 (0.0-0.2) /100WBC PT 12.3 (11.1-13.3) SEC INR 1.0 (0.9-1.1) Sodium 138 (135-145) mmol/L Potassium 4.8 (3.3-5.1) mmol/L Chloride 102 (96-108) mmol/L Carbon Dioxide 26 (22-29) mmol/L Anion Gap 15 (12-20) BUN 15 (9-16) mg/dL Creatinine 1.00 (0.5-1.4) mg/dL Estim Creat Clear Calc 75.4 Estimated GFR > 60 Random Glucose 119 H (60-115) mg/dL Calcium 9.4 (8.4-10.2) mg/dL Independent Interpretation I performed an independent interpretation of an: EKG Interpretation: Rate: 78 Rhythm: NSR Newcomb: normal Normal P waves. Normal LUISITO. Normal QRS complex. ST T wave : normal no VANDANA qTC: 424 prior studies: no acute ischemia The study has been interpreted contemporaneously by me. . External Record Review External record reviewed: Inpatient record and Office record Discharge Plan Discharge Clinical Impression: Food impaction of esophagus Qualifiers: Encounter type: initial encounter Qualified Code(s): T18.128A - Food in esophagus causing other injury, initial encounter Patient Disposition: Admitted as Observation Prescriptions: No Action bisoprolol-hydrochlorothiazide 10-6.25 mg tablet 1 tab PO DAILY Qty: 90 3RF losartan 50 mg tablet 50 mg PO DAILY Qty: 90 3RF amlodipine 10 mg tablet 10 mg PO DAILY Qty: 90 3RF rosuvastatin 20 mg tablet 20 mg PO DAILY Qty: 90 3RF (DME) pen needle, diabetic [BD Ultra-Fine Micro Pen Needle] 32 gauge x 1/4 needle See Rx Instructions .Route Qty: 100 3RF Rx Instructions: 1 qd Trelegy Ellipta 100-62.5-25 mcg blister with device 1 ea inhalation DAILY Qty: 180 3RF aspirin [Aspir-81] 81 mg Tablet,Delayed Release (Dr/Ec) 81 mg PO DAILY omega-3 fatty acids [Fish Oil Concentrate] 1,000 mg capsule 1,000 mg PO DAILY (DME) blood-glucose meter [[employer] Ultra2 Meter] Misc See Rx Instructions .Route Qty: 1 0RF Rx Instructions: As directed Trulicity 1.5 mg/0.5 mL pen injector 1.5 mg subcut QWEEK Qty: 6 4RF lansoprazole 30 mg capsule,delayed release(DR/EC) 30 mg PO DAILY Qty: 90 3RF insulin glargine [Lantus Solostar U-100 Insulin] 100 unit/mL (3 mL) insulin pen 48 unit subcut QPM Qty: 45 3RF
--- NOTE | 2023-07-09 14:15 | ECG_ITS ---
Test Reason : PREOP Blood Pressure : / mmHG Vent. Rate : 078 BPM Atrial Rate : 078 BPM P-R Int : 184 ms QRS Dur : 082 ms QT Int : 372 ms P-R-T Axes : 059 050 060 degrees QTc Int : 424 ms Normal sinus rhythm Normal ECG When compared with ECG of 08-OCT-2021 12:04, Premature ventricular complexes are no longer Present Referred By: Kira Chua Electronically Signed By:HUONG BURT
[2023-07-09] MEDS: 0.9 % Sodium Chloride 1,000 ML 100 ML IVCONT (14:41)
--- NOTE | 2023-07-09 14:44 | PC.NURSE ---
PER PT - AT NOON TODAY WAS HAVING A QUICK BITE AND FOREIGN BODY (CHICKEN AND CELERY) STUCK IN HIS THROAT. PT IS ABLE TO MANAGE SECRETIONS AND SPEAKS IN FULL SENTENCES. 02 SAT - 96% ON R/A.
[2023-07-09 14:45] LABS: Hematocrit 45.9 % (42.0-52.0); Hemoglobin 15.5 g/dl (14.0-18.0); Mean Corpuscular HGB Conc 33.8 g/dl (31.0-36.0); Mean Corpuscular Hemoglobin 28.4 pg (27.0-33.0); Mean Corpuscular Volume 84.1 fL (80.0-98.0); Mean Platelet Volume 10.1 fL (9.4-12.4); Platelet Count 306 X10*3/uL (160-400); Red Blood Count 5.46 X10*6/uL (4.60-5.80); Red Cell Distribution Width 13.1 % (11.0-16.0); White Blood Count 12.2 X10*3/uL (4.8-10.8)
[2023-07-09 14:54] LABS: Prothrombin Time 12.3 SEC (11.1-13.3)
[2023-07-09 14:58] LABS: Anion Gap 15 (12-20); Blood Urea Nitrogen 15 mg/dL (9-16); Calcium 9.4 mg/dL (8.4-10.2); Carbon Dioxide 26 mmol/L (22-29); Chloride 102 mmol/L (96-108); Creatinine Clr Calc Pharmacy 75.4; Estimated Glomerular Filt Rate > 60; Glucose Random 119 mg/dL (60-115); Potassium 4.8 mmol/L (3.3-5.1); Sodium 138 mmol/L (135-145)
--- NOTE | 2023-07-09 15:30 | MHC.SHP ---
Pre-Procedural Eval Section A Date of Service: 07/09/23 The patient is an INPATIENT: No Changes since office visit: Yes Cold of Flu in the past 2 weeks, Yes New Medical Problems, Yes Changes in Medication and Yes Patient answered all questions The History & Physical has been completed within 30 days and I have reviewed it.: No Section B Chief Complaint: FB in Throat Allergies: Allergies Allergy/AdvReac Type Severity Reaction Status Date / Time amoxicillin [AMOXICILLIN] Allergy Severe VOMITING Verified 07/09/23 14:15 Sulfa (Sulfonamide Allergy Severe HIVES Verified 07/09/23 14:15 Antibiotics) [SULFA (SULFONAMIDE ANTIBIOTICS)] losartan Allergy Intermediate hyperkalemi Verified 07/09/23 14:15 a moxifloxacin [From Avelox] Allergy Unknown Pt does Verified 07/09/23 14:15 not remeber lisinopril AdvReac Intermediate cough Verified 07/09/23 14:15 metformin AdvReac Intermediate Diarrhea Verified 07/09/23 14:15 pravastatin AdvReac Intermediate diarrhea Verified 07/09/23 14:15 sitagliptin [Januvia] AdvReac Intermediate stomach Verified 07/09/23 14:15 upset Plan I have reviewed the history and physical and performed a pertinent physical examination on my patient. No changes have occurred unless specified. Time Spent With Patient Time: Total time managing care of this patient today ____ minutes.
--- NOTE | 2023-07-09 15:30 | PC.NURSE ---
Augusto Lieberman from [facility]
--- NOTE | 2023-07-09 15:47 | P.CONAN_ITS ---
HPI - Anesthesia Eval Consult details Narrative: 68 yo old male patient with Schiatzki's ring and h/o foreign body impaction esophagus presents today with recurrent Food impaction following meal about 2 hours ago On dulaglutide. 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 (Acute) Pulmonary emboli (Acute) Claudication (Acute) COPD (chronic obstructive pulmonary disease) (Acute) Hyperlipidemia (Acute) Lung nodule, solitary (Acute) HTN (hypertension) (Acute) Diabetes (Acute) Past Medical History Medical History Hx of cataract 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 Mother No problems noted. Daughter No problems noted. Brother Myocardial infarction Family history of problems with anesthesia: No Surgical History Surgical History Hx of cataract removal with insertion of prosthetic lens Hx of cataract removal with insertion of prosthetic lens History of surgery History of endoscopy Previous back surgery Hx of colonoscopy Hx of appendectomy History of knee replacement Hx of cholecystectomy History of Problems with Anesthesia: No Social History Social History Household Members: Family Household Members Other:: older daughter, grand daughter 9 yr old Housing: House Are you a primary restorative care technician to a significant other at home: No Do you presently have visiting nurse or other home services: No Alcohol intake: never Patient Tobacco Use Status: Former Tobacco user Cigarette Packs Per Day: 2.5 Years Smoked: 30 Smoked in Last 30 Days: No e-Cigarette/Vaping Use: Never Used Second Hand Smoke Exposure: No Use of substances other than those prescribed or required for medical reasons: No Are you DNR?: No Advance Directives: No Advance Directives Information Provided: Yes service: No Current occupational status: retired Current occupational exposures/hazards: No Cognitive needs: No Hearing needs: Yes Vision needs: No Meds Allergies Allergy/AdvReac Type Severity Reaction Status Date / Time amoxicillin [AMOXICILLIN] Allergy Severe VOMITING Verified 07/09/23 14:15 Sulfa (Sulfonamide Allergy Severe HIVES Verified 07/09/23 14:15 Antibiotics) [SULFA (SULFONAMIDE ANTIBIOTICS)] losartan Allergy Intermediate hyperkalemi Verified 07/09/23 14:15 a moxifloxacin [From Avelox] Allergy Unknown Pt does Verified 07/09/23 14:15 not remeber lisinopril AdvReac Intermediate cough Verified 07/09/23 14:15 metformin AdvReac Intermediate Diarrhea Verified 07/09/23 14:15 pravastatin AdvReac Intermediate diarrhea Verified 07/09/23 14:15 sitagliptin [Januvia] AdvReac Intermediate stomach Verified 07/09/23 14:15 upset Active Medications: Current Medications Sodium Chloride (Ns) 1,000 mls @ 100 mls/hr IVCONT .Q10H IOANA Last Admin: 07/09/23 14:41 Dose: 100 mls/hr Home Medications Medication Instructions Recorded Confirmed Last Taken Type omega-3 fatty acids 1,000 mg 1,000 mg PO DAILY 12/12/20 07/03/23 11/24/22 History capsule (Fish Oil Concentrate) aspirin 81 mg tablet,delayed 81 mg PO DAILY 12/03/22 07/03/23 Unknown History release Exam Height,Weight and Vital Signs: Height 6 ft Weight 86.183 kg Last Vital Signs Temp 97.9 F 07/09/23 15:13 Pulse 61 07/09/23 15:13 Resp 16 07/09/23 15:13 BP 132/57 L 07/09/23 15:13 Pulse Ox 97 07/09/23 15:13 O2 Del Method Room Air 07/09/23 15:13 Vital Signs Temp Pulse Resp BP Pulse Ox O2 Del Method 07/09/23 15:56 97.5 F 77 16 136/85 96 Room Air 07/09/23 15:13 97.9 F 61 16 132/57 L 97 Room Air 07/09/23 14:08 98.2 F 85 18 106/70 95 Room Air Pertinent Lab Results Pertinent Lab Results: Laboratory Tests 07/09/23 14:37 WBC 12.2 H RBC 5.46 Hgb 15.5 Hct 45.9 MCV 84.1 MCH 28.4 MCHC 33.8 RDW 13.1 Plt Count 306 MPV 10.1 Absolute Nucleated RBC 0.000 Nucleated RBC % (auto) 0.0 PT 12.3 INR 1.0 Sodium 138 Potassium 4.8 Chloride 102 Carbon Dioxide 26 Anion Gap 15 BUN 15 Creatinine 1.00 Estim Creat Clear Calc 75.4 Estimated GFR > 60 Random Glucose 119 H Calcium 9.4 Narrative Narrative: 12 lead EKG 07/09/23 Test Reason : PREOP Blood Pressure : / mmHG Vent. Rate : 078 BPM Atrial Rate : 078 BPM P-R Int : 184 ms QRS Dur : 082 ms QT Int : 372 ms P-R-T Axes : 059 050 060 degrees QTc Int : 424 ms Normal sinus rhythm Normal ECG When compared with ECG of 08-OCT-2021 12:04, Premature ventricular complexes are no longer Present Airway Mallampati Class: II TM Dist: >3cm Neck ROM: Full Loose/Missing/Broken Teeth: No Heart: RRR Lungs: CTAB Assessment and Plan Assessment Anesthesia Assessment: Anesthesia Plan Discussed and Chart Reviewed Final Anesthetic Review Family History of Problems with Anesthesia: No History of Problems with Anesthesia: No NPO: No ASA Class: III and Emergency Final Preanesthetic Review: No Changes in Pt Med Stat, Meds/Allgs Chart Reviewed, Consent Obtained/Reviewed and Anes Risks/Benef Reviewed Patient Risk: High Procedure Risk: Intermediate Assessment/Block/Sedation in SS: Assess/Block/Sedation-SS Anesthetic Plan Anesthetic Plan: GA Disposition: Standard PACU
--- NOTE | 2023-07-09 15:54 | PC.NURSE ---
Pt has undocumented #20 angio to right forearm. IV is patent and asymptomatic. IV insertion date recorded by this RN but time of insertion unknown.
--- NOTE | 2023-07-09 21:34 | CONS_ITS ---
DATE OF SERVICE: 07/09/2023 REFERRING PHYSICIAN: Dr. Solis REASON FOR CONSULTATION: Food bolus, esophageal. HISTORY OF PRESENT ILLNESS: The patient is a pleasant 68-year-old man, who presented to the emergency room after eating celery and chicken at noon time with obstructive symptoms. He has had a history of previous esophageal impactions, requiring endoscopy and his symptoms today are consistent with his previous symptoms. He also has a history of a Schatzki ring, hiatal hernia and gastritis and has undergone previous balloon dilations with Dr. Knox for his Schatzki ring. Most recently, in 11/2022, when he underwent a balloon dilation to 17 mm. He is on chronic proton pump inhibitors at home. PAST MEDICAL HISTORY: 1. Schatzki ring with hiatal hernia as above. 2. COPD. 3. Hyperlipidemia. 4. Diabetes mellitus. 5. Hypertension. 6. Cataracts. 7. Vascular stent placement in left upper extremity for arterial disease. 8. Claudication. 9. Pulmonary nodule. CURRENT MEDICATIONS: Current medication list is reviewed in the chart. ALLERGIES: MULTIPLE MEDICATION ALLERGIES ARE REVIEWED. FAMILY HISTORY: This is reviewed with the patient, is noncontributory. SOCIAL HISTORY: There is no current tobacco, alcohol, or substance abuse. REVIEW OF SYSTEMS: SKIN: No pruritus. HEENT: Negative. CARDIOPULMONARY: He denies shortness of breath or chest pain. GASTROINTESTINAL: As above. GENITOURINARY: Negative. NEUROPSYCHIATRIC: Negative. PHYSICAL EXAMINATION: GENERAL: Shows a pleasant male, sitting comfortably in bed. VITAL SIGNS: Reviewed in the electronic medical record and are stable. SKIN: Anicteric. HEENT: Shows no scleral icterus. NECK: Without lymphadenopathy or thyromegaly. LUNGS: Clear. HEART: Shows a regular rate and rhythm, S1, S2. No murmur. ABDOMEN: Soft without focal masses or tenderness. Bowel sounds are present. No organomegaly is noted. EXTREMITIES: Without edema. LABORATORY DATA: Reviewed. IMPRESSION: Esophageal obstruction due to food bolus. I discussed endoscopy with him including risks and benefits of the procedure. This will be arranged urgently to provide relief of his symptoms. MD SRIKANTH Desai/GAYE / [id number]
--- NOTE | 2023-07-09 21:44 | OP_ITS ---
DATE OF SERVICE: 07/09/2023 SURGEON: Michael Ruby MD INDICATIONS: Foreign body in the esophagus. PREOPERATIVE DIAGNOSIS: POSTOPERATIVE DIAGNOSIS: PROCEDURE PERFORMED: Upper endoscopy with removal of esophageal foreign body. ESTIMATED BLOOD LOSS: COMPLICATIONS: ANESTHESIA: General anesthesia. ASSISTANTS: SPECIMENS: DESCRIPTION OF PROCEDURE: A history and physical was performed. The risks and benefits of the procedure were explained to the patient and informed consent was obtained. The patient was placed in the left lateral decubitus position. The Olympus video gastroscope was introduced into the esophagus, stomach, and duodenum. Examination was performed. The scope was removed. He tolerated the procedure well and was taken to the recovery area in stable condition. FINDINGS: Esophagus: There was a large piece of meat obstructing the esophagus at 25 cm. This was gently pushed through into the stomach. There was no stricture identified. There was a nonobstructive ring at the EG junction. Stomach: The stomach showed some retained food. Duodenum: The bulb and 2nd portion were normal. IMPRESSION: Foreign body of the esophagus. RECOMMENDATION: Follow up as needed. MD SRIKANTH Desai/GAYE / [id number]
== END 2023-07-09 18:31 | disposition home or self-care (01) ==
LOC: HO.ED 15:32 → HO.SSS 15:34
PROVIDERS: Emergency Provider Emergency Medicine; PCP Internal Medicine; Visit Provider Internal Medicine Gastroenterology
PROC: 0DJ08ZZ Inspection of Upper Intestinal Tract, Via Natural or Artificial Opening Endoscopic (ICD-10-PCS; CPT 43235; principal; 2023-07-09 15:50)
DX: T18.128A Food in esophagus causing other injury, initial encounter (principal); K22.2 Esophageal obstruction; I10 Essential (primary) hypertension; E11.9 Type 2 diabetes mellitus without complications; J44.9 Chronic obstructive pulmonary disease, unspecified; Z86.711 Personal history of pulmonary embolism; Z79.82 Long term (current) use of aspirin; Z88.0 Allergy status to penicillin; Z88.2 Allergy status to sulfonamides; Z88.8 Allergy status to other drugs, medicaments and biological substances; W44.F3XA Food entering into or through a natural orifice, initial encounter; Y93.9 Activity, unspecified; Y92.9 Unspecified place or not applicable; Y99.9 Unspecified external cause status
CPT/HCPCS: 43247; 36415; 80048; 85027; 85610; 93005; 99285; J0330; J1100; J2405; J2704; J3010

== ENCOUNTER → 2023-07-09 14:15 | Outpatient (BNV) | payer MEDICARE, SELFPAY | PROVIDERS: Emergency Provider Emergency Medicine; PCP Internal Medicine; Visit Provider Internal Medicine | DX: I49.3 Ventricular premature depolarization (principal) | CPT/HCPCS: 93010 ==

== ENCOUNTER 2023-09-01 09:37 | Outpatient (AMB) | payer MEDICARE, SELFPAY ==
--- NOTE | 2023-09-01 09:43 | MHC.OFFVIS ---
Intake Vital Signs 09/01/23 09:46 Height 6 ft Weight 192 lb BMI 26.0 BP 151/67 H Blood Pressure Location Rt brachial Position Sitting Pulse 80 Intake Visit Reasons: 8 mnth follow up Intake Note: Flaco presents in the office as a 8 month follow up. CC: He states since be putting on lansoprazole he has been feeling okay. Appeals Representative Required: No Allergies amoxicillin [AMOXICILLIN] Allergy (Severe, Verified 09/01/23 09:47) VOMITING Sulfa (Sulfonamide Antibiotics) [SULFA (SULFONAMIDE ANTIBIOTICS)] Allergy (Severe, Verified 09/01/23 09:47) HIVES losartan Allergy (Intermediate, Verified 09/01/23 09:47) hyperkalemia moxifloxacin [From Avelox] Allergy (Unknown, Verified 09/01/23 09:47) Pt does not remeber lisinopril Adverse Reaction (Intermediate, Verified 09/01/23 09:47) cough metformin Adverse Reaction (Intermediate, Verified 09/01/23 09:47) Diarrhea pravastatin Adverse Reaction (Intermediate, Verified 09/01/23 09:47) diarrhea sitagliptin [Januvia] Adverse Reaction (Intermediate, Verified 09/01/23 09:47) stomach upset HPI 8 mnth follow up HPI Details 68 yr old m with hx of schatzki ring, HTN, COPD< HLP, DM who I am seeing for f/u RECAP: He was seen for assessment for food impaction 09/2022 He was eating steak and felt it got stuck He had hx of schatzki ring and erosive esophagitis, requiring dilation in past, he says he was doing ok till last few months and noted worsening swallowing issues to solids. EGD: 09/2022--impacted food, pushed down, balloon dilation to 14 mm placed on PPI Repeat EGD: 11/2022-- dilation with 17 mm with small tear, hiatal hernia,\ EGD 07/09/23-- food obstruction, pushed by Tung INTERIM: He has not had issues with swallowing since back on PPI and EGD with Tung--he had been off PPI when he had the last food obstrcution no abdominal pain appetite is good no acid reflux no other issues EXAM: GENERAL: The patient is well developed and nontoxic. VITAL SIGNS:see workflow HEENT: Nonicteric sclerae, PERRLA, EOMI. Oropharynx clear. Moist mucous membranes. Conjunctivae appear well perfused. No thyroid mass. CHEST: Chest wall is nontender. HEART: Regular rate and rhythm without murmurs. LUNGS: Clear to auscultation bilaterally. ABDOMEN: Soft, positive bowel sounds, nontender, no organomegaly.no flank tenderness SKIN: No rash, no excessive bruising, petechiae, or purpura. NEUROLOGIC: Cranial nerves II-XII intact without motor/sensory deficit. 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 Mother No problems noted. Daughter No problems noted. Brother Myocardial infarction Social History Household Members: Family Household Members Other:: older daughter, grand daughter 9 yr old Housing: House Are you a primary district manager primary care sales to a significant other at home: No Do you presently have visiting nurse or other home services: No Alcohol intake: never Patient Tobacco Use Status: Former Tobacco user Cigarette Packs Per Day: 2.5 Years Smoked: 30 e-Cigarette/Vaping Use: Never Used Second Hand Smoke Exposure: No service: No Current occupational status: retired Current occupational exposures/hazards: No Cognitive needs: No Hearing needs: Yes Vision needs: No Physical Exam Vital Signs: Last Vital Signs Pulse 80 09/01/23 09:46 BP 151/67 H 09/01/23 09:46 BMI result Body Mass Index 26.0 Assessment & Plan Assessment & Plan (1) Schatzki's ring: Comment: EGD 12/13 Dr. Knox Code(s): K22.2 - Esophageal obstruction Plan: PLAN: 1/ cont with PPI, advised should not stop and cont with MV and Vit D 2/ offered another EGD with dilation, he wants to hold for the moment as he feels fine, advised call me AAKASH if any recurrence of sx (2) Esophageal foreign body: Code(s): T18.108A - Unspecified foreign body in esophagus causing other injury, initial encounter Plan: PLAN: 1/ cont with PPI, advised should not stop and cont with MV and Vit D 2/ offered another EGD with dilation, he wants to hold for the moment as he feels fine, advised call me AAKASH if any recurrence of sx Coding Level of Care Code Est Pt Level 3 (63783) Diagnoses Schatzki's ring K22.2 Esophageal foreign body T18.108A
[2023-09-01 09:46] VITALS: BP 151/67; PULSE 80; BMI 26.0
== END 2023-09-01 10:47 | disposition home or self-care (01) ==
PROVIDERS: PCP Internal Medicine; Visit Provider Internal Medicine Gastroenterology
DX: K22.2 Esophageal obstruction (principal); T18.108A Unspecified foreign body in esophagus causing other injury, initial encounter
CPT/HCPCS: 99213

== ENCOUNTER → 2023-09-01 09:37 | Outpatient (BNVA) | payer MEDICARE, SELFPAY | PROVIDERS: PCP Internal Medicine; Visit Provider Internal Medicine Gastroenterology | DX: T18.108D Unspecified foreign body in esophagus causing other injury, subsequent encounter (principal); K22.2 Esophageal obstruction | CPT/HCPCS: 99212 ==

== ENCOUNTER 2023-09-08 12:20 | Outpatient (AMB) | payer MEDICARE, SELFPAY ==
[2023-09-08 13:45] VITALS: BP 120/60; PULSE 96; TEMP 36.6; O2SAT 95; BMI 26.4
--- NOTE | 2023-09-08 13:45 | AM.OFFWIN_ITS ---
Intake Vital Signs 09/08/23 13:45 Height 6 ft Weight 195 lb BMI 26.4 BP 120/60 Blood Pressure Location Lt brachial Position Sitting Pulse 96 Pulse Source Pulse Oximeter Temp 97.9 F Temp Source Temporal Artery Scan Pulse Oximetry (%) 95 Oxygen Delivery Method Room Air Intake Visit Reasons: EP RT eye drainage, congestion Intake Note: pt is here today for rt eye drainage congestion started friday Patient Tobacco Use Status: Former Tobacco user Allergies amoxicillin [AMOXICILLIN] Allergy (Severe, Verified 09/08/23 13:46) VOMITING Sulfa (Sulfonamide Antibiotics) [SULFA (SULFONAMIDE ANTIBIOTICS)] Allergy (Severe, Verified 09/08/23 13:46) HIVES losartan Allergy (Intermediate, Verified 09/08/23 13:46) hyperkalemia moxifloxacin [From Avelox] Allergy (Unknown, Verified 09/08/23 13:46) Pt does not remeber lisinopril Adverse Reaction (Intermediate, Verified 09/08/23 13:46) cough metformin Adverse Reaction (Intermediate, Verified 09/08/23 13:46) Diarrhea pravastatin Adverse Reaction (Intermediate, Verified 09/08/23 13:46) diarrhea sitagliptin [Januvia] Adverse Reaction (Intermediate, Verified 09/08/23 13:46) stomach upset Do you need a note to return to daycare/school/sports/work: No HPI HPI Comments History of Present Illness Details This is a 68-year-old male with a past medical history of hypertension, hyperlipidemia, insulin-dependent diabetes and COPD not currently oxygen dependent presenting for evaluation of sinus congestion and cough that he has had since Friday. Patient states over the weekend he had clear tears coming out of his right eye but denies any right ear pain, discharge or purulence. Patient also denies having any fevers, chills, shortness of breath, chest pain, ear pain or sore throat. Patient has used diabetic Tussin as well as cough drops for relief of his symptoms. Patient denies having any episodes of hyperglycemia. 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 Mother No problems noted. Daughter No problems noted. Brother Myocardial infarction Social History Household Members: Family Household Members Other:: older daughter, grand daughter 9 yr old Housing: House Are you a primary chronic care nurse to a significant other at home: No Do you presently have visiting nurse or other home services: No Alcohol intake: never Patient Tobacco Use Status: Former Tobacco user Cigarette Packs Per Day: 2.5 Years Smoked: 30 e-Cigarette/Vaping Use: Never Used Second Hand Smoke Exposure: No service: No Current occupational status: retired Current occupational exposures/hazards: No Cognitive needs: No Hearing needs: Yes Vision needs: No Review of Systems Const All systems reviewed & are unremarkable except as noted in HPI and below Denies chills, Reports fatigue and Denies fever(s) Eyes Reports no additional complaints, Denies blurry vision, Denies diplopia, Denies itchy eyes, Denies loss of vision, Denies other visual disturbances and Denies eye pain ENT Reports no additional complaints, Denies otalgia and Denies sore throat Card Reports as per HPI and Denies dyspnea Resp Reports as per HPI, Reports cough, Denies hemoptysis, Denies dyspnea and Denies wheezing Musc Reports no additional complaints Skin/Breast Reports system reviewed and no additional complaints, except as documented Neuro Denies loss of vision Psych Reports no additional complaints Endo Reports fatigue Aller/Immun Denies itchy eyes and Denies wheezing Physical Exam Vital Signs: Last Vital Signs Temp 97.9 F 09/08/23 13:45 Pulse 96 09/08/23 13:45 BP 120/60 09/08/23 13:45 Pulse Ox 95 09/08/23 13:45 Oxygen Delivery Method Room Air 09/08/23 13:45 BMI result Body Mass Index 26.4 Const General: cooperative, healthy appearing, comfortable and no acute distress Nutritional Appearance: average body habitus Orientation/consciousness: patient oriented x3 Limitations: no limitations HEENT Head: Yes normal to inspection and Yes normocephalic Ears: hearing grossly normal bilaterally, external ears normal, TM's normal bilaterally and EAC's normal General nose exam: Normal external nose present Face and sinus: Yes normal facial exam Mouth: Normal oral and palatal mucosa present and moist mucous membranes Teeth and gingiva: dentition normal Throat: Yes posterior oropharynx normal and No postnasal drainage Eyes General: appearance normal, both eyes and all related structures Periorbital: periorbital findings normal Eyelids: Yes eyelids normal Conjunctivae: conjunctivae normal (no erythema, no purulence, no discharge noted) Corneas: corneas normal Pupils: Equal, round and reactive pupils present EOM: EOMs intact bilaterally Neck Lymphatic: no lymphadenopathy noted Resp Effort & Inspection: normal respiratory effort, able to speak in complete sentences, normal respiratory pattern, no audible wheezes, no cough and no respiratory distress Auscultation: clear to auscultation bilaterally Cardio Rate: regular rate Rhythm: regular rhythm Skin General skin exam: no rashes or lesions noted Neuro General: patient oriented x3 Cranial nerves: Yes Equal, round and reactive pupils present Psych Appearance: grossly normal Mental Status: mental status grossly normal Insight: Good insight present (Psych) Judgement: Good judgement present (Psych) Assessment & Plan Assessment & Plan (1) Upper respiratory infection: Code(s): J06.9 - Acute upper respiratory infection, unspecified Qualifiers: URI type: unspecified viral URI Qualified Code(s): J06.9 - Acute upper respiratory infection, unspecified Plan: Nasal saline spray BID; patient to continue diabetic Tussin as previously prescribed. Follow-up with Walk-In or PCP for any worsening symptoms. Coding Level of Care Code Est Pt Level 3 (78667) Diagnoses Viral upper respiratory tract infection J06.9 URI type: unspecified viral URI Time Spent (min) 20
== END 2023-09-08 15:10 | disposition home or self-care (01) ==
PROVIDERS: PCP Internal Medicine; Visit Provider Physician Assistant
DX: J06.9 Acute upper respiratory infection, unspecified (principal)
CPT/HCPCS: 99213

== ENCOUNTER 2023-10-22 06:01 | Outpatient (REF) | payer MEDICARE, SELFPAY ==
[2023-10-22 10:44] LABS: Basophils Absolute Auto 0.1 X10*3/uL (0.0-0.2); Basophils Percent Auto 0.8 % (0-2); Eosinophils Absolute Auto 2.7 X10*3/uL (0.0-0.4); Eosinophils Percent Auto 18.6 % (0-4); Hematocrit 48.2 % (42.0-52.0); Hemoglobin 15.8 g/dl (14.0-18.0); Imm Gran Abs Auto 0.05 X10*3/uL (0.00-0.03); Imm Gran Pct Auto 0.4 % (0.0-0.4); Lymphocytes Absolute Auto 3.7 X10*3/uL (1.2-4.9); Lymphocytes Percent Auto 26.1 % (20-40); MANUAL DIFF FLAG SCAN; Mean Corpuscular HGB Conc 32.8 g/dl (31.0-36.0); Mean Corpuscular Hemoglobin 28.6 pg (27.0-33.0); Mean Corpuscular Volume 87.3 fL (80.0-98.0); Mean Platelet Volume 10.7 fL (9.4-12.4); Monocytes Absolute Auto 0.9 X10*3/uL (0.1-1.2); Monocytes Percent Auto 6.5 % (2-11); Neutrophils Absolute Auto 6.8 x10*3/uL (2.0-8.3); Neutrophils Percent Auto 47.6 % (45-73); Platelet Count 297 X10*3/uL (160-400); Red Blood Count 5.52 X10*6/uL (4.60-5.80); Red Cell Distribution Width 13.5 % (11.0-16.0); SCAN SMEAR FLAG 1; White Blood Count 14.2 X10*3/uL (4.8-10.8)
[2023-10-22 10:53] LABS: Estimated Average Glucose 171 mg/dL; Hemoglobin A1c % 7.6 % (<6.0)
[2023-10-22 11:14] LABS: Creatinine Urine 116.13 mg/dL; Microalbum/Creatinine Ratio Ur 8.6 ug/mg cr (<30)
[2023-10-22 11:20] LABS: SLIDE REVIEW VERIFIED
[2023-10-22 11:35] LABS: Alanine Aminotransferase 36 U/L (0-40); Alkaline Phosphatase 62 U/L (39-117); Anion Gap 14 (12-20); Aspartate Amino Transferase 33 U/L (5-37); Bilirubin Total 0.4 mg/dL (0.0-1.0); Blood Urea Nitrogen 13 mg/dL (9-16); Calcium 9.2 mg/dL (8.4-10.2); Carbon Dioxide 26 mmol/L (22-29); Chloride 102 mmol/L (96-108); Cholesterol 75 mg/dL (<200); Estimated Glomerular Filt Rate > 60; Glucose Fasting 159 mg/dL (60-99); HDL Cholesterol 28 mg/dL (>40); LDL Cholesterol Calculated 30 mg/dL (<100); Potassium 3.8 mmol/L (3.3-5.1); Sodium 138 mmol/L (135-145); Triglycerides 85 mg/dL (<150)
== END 2023-10-22 06:02 | disposition home or self-care (01) ==
LOC: HO.HMGCLDS 06:01
PROVIDERS: PCP Internal Medicine; Visit Provider Internal Medicine
DX: E11.9 Type 2 diabetes mellitus without complications (principal); I10 Essential (primary) hypertension; E78.5 Hyperlipidemia, unspecified
CPT/HCPCS: 36415; 80053; 80061; 82043; 82570; 83036; 85025

== ENCOUNTER 2023-10-30 09:48 | Outpatient (AMB) | payer MEDICARE, SELFPAY ==
[2023-10-30 10:37] VITALS: BP 104/58; PULSE 82; O2SAT 94; BMI 25.9
--- NOTE | 2023-10-30 10:37 | A.OFFPC_ITS ---
Vital Signs 10/30/23 10:37 Height 6 ft Weight 191 lb BMI 25.9 BP 104/58 L Blood Pressure Location Rt brachial Position Sitting Pulse 82 Pulse Source Pulse Oximeter Pulse Oximetry (%) 94 Oxygen Delivery Method Room Air Intake Visit Reasons: 4 Month F/U Intake Note: Pt is here today for 4 months follow up visit. Allergies amoxicillin [AMOXICILLIN] Allergy (Severe, Verified 10/30/23 10:43) VOMITING Sulfa (Sulfonamide Antibiotics) [SULFA (SULFONAMIDE ANTIBIOTICS)] Allergy (Severe, Verified 10/30/23 10:43) HIVES losartan Allergy (Intermediate, Verified 10/30/23 10:43) hyperkalemia moxifloxacin [From Avelox] Allergy (Unknown, Verified 10/30/23 10:43) Pt does not remeber lisinopril Adverse Reaction (Intermediate, Verified 10/30/23 10:43) cough metformin Adverse Reaction (Intermediate, Verified 10/30/23 10:43) Diarrhea pravastatin Adverse Reaction (Intermediate, Verified 10/30/23 10:43) diarrhea sitagliptin [Januvia] Adverse Reaction (Intermediate, Verified 10/30/23 10:43) stomach upset Medication List - Last Reconciled 10/30/23 by Marisel To MD amlodipine 10 mg PO DAILY aspirin 81 mg PO DAILY bisoprolol-hydrochlorothiazide 10-6.25 mg 1 tab PO DAILY blood sugar diagnostic (OneTouch Ultra Test strips) test blood sugar 3 times a day blood-glucose meter (OneTouch Ultra2 Meter) As directed dulaglutide (Trulicity) 3 mg (0.5 mL) subcut QWEEK [fish oil 1,000 mg daily] iykoibxsgcy-pmjikktvs-tgytqdnu 100-62.5-25 mcg (Trelegy Ellipta) 1 ea inhalation DAILY insulin glargine (Lantus Solostar U-100 Insulin) 48 units (0.48 mL) subcut QPM lansoprazole 30 mg PO DAILY losartan 50 mg PO DAILY omega-3 fatty acids (Fish Oil Concentrate) 1,000 mg PO DAILY pen needle, diabetic (BD Ultra-Fine Micro Pen Needle) 1 qd rosuvastatin 20 mg PO DAILY Tobacco use date assessed: 10/30/23 Dental Screening Dental Screen Date: 10/30/23 Did you have a dental visit in the last 12 months?: Yes Did you have a dental problem in the last 6 months where you did not have access to dental care?: No Was dental information given to patient?: Patient has dentist HPI 4 Month F/U HPI Details Patient presents for the follow-up on hypertension type 2 diabetes COPD hyperlipidemia stable on medications. 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 Mother No problems noted. Daughter No problems noted. Brother Myocardial infarction Social History Household Members: Family Household Members Other:: older daughter, grand daughter 9 yr old Housing: House Are you a primary healthcare market consultant to a significant other at home: No Do you presently have visiting nurse or other home services: No Alcohol intake: never Patient Tobacco Use Status: Former Tobacco user Cigarette Packs Per Day: 2.5 Years Smoked: 30 e-Cigarette/Vaping Use: Never Used Second Hand Smoke Exposure: No service: No Current occupational status: retired Current occupational exposures/hazards: No Cognitive needs: No Hearing needs: Yes Vision needs: No Questionnaire Thrive Questionnaire Date Thrive assessed: 07/03/23 SINA-7 AMB Questionnaire SINA-7 Date SINA - 7 assessed: 07/03/23 Source: Developed by Drs. Constantino Simeon, Aixa Rivera, Michael Beavers and colleagues, with an educational shakir from [employer]. Review of Systems Const All systems reviewed & are unremarkable except as noted in HPI and below ENT Reports no additional complaints Card Reports no additional complaints Resp Reports no additional complaints GI Reports no additional complaints Physical exam (Primary Care) Vital Signs: Last Vital Signs Pulse 82 10/30/23 10:37 BP 104/58 L 10/30/23 10:37 Pulse Ox 94 10/30/23 10:37 Oxygen Delivery Method Room Air 10/30/23 10:37 BMI result Body Mass Index 25.9 Tobacco/Smoking Status: Tobacco use Status Tobacco use date assessed 10/30/23 10/30/23 10:43 Patient Tobacco Use Status Former Tobacco user 10/30/23 10:38 e-Cigarette/Vaping Use Never Used 10/30/23 10:38 Thrive Assessment: Date of Thrive Assessment Date Thrive assessed 07/03/23 10/30/23 10:38 Const General: no acute distress Eyes General: appearance normal, both eyes and all related structures Resp Effort & Inspection: normal respiratory effort Auscultation: clear to auscultation bilaterally Cardio Rhythm: regular rhythm Heart sounds: S1 normal heart sound present and S2 normal heart sound present GI Inspection: Yes normal to inspection Palpation (GI): Soft to palpation Percussion: Yes normal to percussion Auscultation: normal bowel sounds Assessment and Plan Assessment & Plan (1) COPD (chronic obstructive pulmonary disease): Comment: Follow-up with pulmonology Code(s): J44.9 - Chronic obstructive pulmonary disease, unspecified Plan: Continue Trelegy albuterol p.r.n. (2) HTN (hypertension): Code(s): I10 - Essential (primary) hypertension Plan: Continue current medications (3) Diabetes: Code(s): E11.9 - Type 2 diabetes mellitus without complications Plan: A1c is 7.6, ADA diet increase exercise weight loss discussed with the patient he will continue insulin increase Trulicity to 3 mg week follow-up in 4 months with a fasting labs before (4) Denisetzki's ring: Comment: EGD 12/13 Dr. Knox Code(s): K22.2 - Esophageal obstruction Plan: Follow-up with the GI continue PPI Orders: Orders Hemoglobin A1c 4 Months E11.9 - Type 2 diabetes mellitus without complications, I10 - Essential (primary) hypertension, J44.9 - Chronic obstructive pulmonary disease, unspecified, K22.2 - Esophageal obstruction Comprehensive [place]. Panel Fast 4 Months E11.9 - Type 2 diabetes mellitus without complications, I10 - Essential (primary) hypertension, J44.9 - Chronic obstructive pulmonary disease, unspecified, K22.2 - Esophageal obstruction Complete Blood Count Auto Diff 4 Months E11.9 - Type 2 diabetes mellitus without complications, I10 - Essential (primary) hypertension, J44.9 - Chronic obstructive pulmonary disease, unspecified, K22.2 - Esophageal obstruction Coding Level of Care Code Est Pt Level 4 (69528) Diagnoses COPD (chronic obstructive pulmonary disease) J44.9 HTN (hypertension) I10 Diabetes E11.9 Schatzki's ring K22.2
== END 2023-10-30 11:12 | disposition home or self-care (01) ==
PROVIDERS: PCP Internal Medicine; Visit Provider Internal Medicine
DX: J44.9 Chronic obstructive pulmonary disease, unspecified (principal); I10 Essential (primary) hypertension; E11.9 Type 2 diabetes mellitus without complications; K22.2 Esophageal obstruction
CPT/HCPCS: 99214

== ENCOUNTER 2024-02-24 06:01 | Outpatient (REF) | payer MEDICARE, SELFPAY ==
[2024-02-24 10:07] LABS: MANUAL DIFF FLAG NO
[2024-02-24 10:16] LABS: Basophils Absolute Auto 0.1 X10*3/uL (0.0-0.2); Basophils Percent Auto 0.7 % (0-2); Eosinophils Absolute Auto 1.1 X10*3/uL (0.0-0.4); Eosinophils Percent Auto 9.3 % (0-4); Hematocrit 46.7 % (42.0-52.0); Hemoglobin 15.5 g/dl (14.0-18.0); Imm Gran Abs Auto 0.05 X10*3/uL (0.00-0.03); Imm Gran Pct Auto 0.4 % (0.0-0.4); Lymphocytes Absolute Auto 2.8 X10*3/uL (1.2-4.9); Lymphocytes Percent Auto 24.8 % (20-40); Mean Corpuscular HGB Conc 33.2 g/dl (31.0-36.0); Mean Corpuscular Hemoglobin 28.4 pg (27.0-33.0); Mean Corpuscular Volume 85.7 fL (80.0-98.0); Mean Platelet Volume 10.8 fL (9.4-12.4); Monocytes Absolute Auto 0.9 X10*3/uL (0.1-1.2); Monocytes Percent Auto 7.9 % (2-11); Neutrophils Absolute Auto 6.5 x10*3/uL (2.0-8.3); Neutrophils Percent Auto 56.9 % (45-73); Platelet Count 296 X10*3/uL (160-400); Red Blood Count 5.45 X10*6/uL (4.60-5.80); Red Cell Distribution Width 12.8 % (11.0-16.0); White Blood Count 11.4 X10*3/uL (4.8-10.8)
[2024-02-24 10:28] LABS: Estimated Average Glucose 180 mg/dL; Hemoglobin A1c % 7.9 % (<6.0)
[2024-02-24 10:31] LABS: Alanine Aminotransferase 32 U/L (0-40); Alkaline Phosphatase 56 U/L (39-117); Anion Gap 12 (12-20); Aspartate Amino Transferase 24 U/L (5-37); Blood Urea Nitrogen 14 mg/dL (9-16); Carbon Dioxide 23 mmol/L (22-29); Chloride 104 mmol/L (96-108); Estimated Glomerular Filt Rate > 60; Glucose Fasting 172 mg/dL (60-99); Potassium 4.1 mmol/L (3.3-5.1); Sodium 135 mmol/L (135-145); Total Protein 6.8 g/dL (6.5-8.0)
[2024-02-24 11:00] LABS: Bilirubin Total 0.4 mg/dL (0.0-1.0)
== END 2024-02-24 06:02 | disposition home or self-care (01) ==
LOC: HO.HMGCLDS 06:01
PROVIDERS: PCP Internal Medicine; Visit Provider Internal Medicine
DX: J44.9 Chronic obstructive pulmonary disease, unspecified (principal); I10 Essential (primary) hypertension; E11.9 Type 2 diabetes mellitus without complications; K22.2 Esophageal obstruction
CPT/HCPCS: 36415; 80053; 83036; 85025

== ENCOUNTER 2024-03-08 10:28 | Outpatient (AMB) | payer MEDICARE, SELFPAY ==
--- NOTE | 2024-03-08 10:45 | A.OFFPC_ITS ---
Vital Signs 03/08/24 10:46 Height 6 ft Weight 191 lb BMI 25.9 BP 104/60 Blood Pressure Location Lt brachial Position Sitting Pulse 85 Pulse Source Pulse Oximeter Pulse Oximetry (%) 95 Oxygen Delivery Method Room Air Intake Visit Reasons: 4 month follow up Intake Note: Pt is here today for 4 months follow up visit o DM. Pt states that he has been having hard time getting his Trulicity. Allergies amoxicillin [AMOXICILLIN] Allergy (Severe, Verified 03/08/24 10:59) VOMITING Sulfa (Sulfonamide Antibiotics) [SULFA (SULFONAMIDE ANTIBIOTICS)] Allergy (Severe, Verified 03/08/24 10:59) HIVES losartan Allergy (Intermediate, Verified 03/08/24 10:59) hyperkalemia moxifloxacin [From Avelox] Allergy (Unknown, Verified 03/08/24 10:59) Pt does not remeber lisinopril Adverse Reaction (Intermediate, Verified 03/08/24 10:59) cough metformin Adverse Reaction (Intermediate, Verified 03/08/24 10:59) Diarrhea pravastatin Adverse Reaction (Intermediate, Verified 03/08/24 10:59) diarrhea sitagliptin [Januvia] Adverse Reaction (Intermediate, Verified 03/08/24 10:59) stomach upset Medication List - Last Reconciled 03/08/24 by Marisel To MD amlodipine 10 mg PO DAILY aspirin 81 mg PO DAILY bisoprolol-hydrochlorothiazide 10-6.25 mg 1 tab PO DAILY blood sugar diagnostic (OneTouch Ultra Test strips) test blood sugar 3 times a day blood-glucose meter (OneTouch Ultra2 Meter) As directed dulaglutide (Trulicity) 1.5 mg (0.5 mL) subcut QWEEK [fish oil 1,000 mg daily] dgbrtonmlki-wvnscknqz-qertvwxv 100-62.5-25 mcg (Trelegy Ellipta) 1 ea inhalation DAILY insulin glargine (Lantus Solostar U-100 Insulin) 48 units (0.48 mL) subcut QPM lansoprazole 30 mg PO DAILY losartan 50 mg PO DAILY omega-3 fatty acids (Fish Oil Concentrate) 1,000 mg PO DAILY pen needle, diabetic (BD Ultra-Fine Micro Pen Needle) 1 qd rosuvastatin 20 mg PO DAILY Tobacco use date assessed: 03/08/24 Fall risk assessment: No Falls in past year Last assessed Fall Risk: 03/08/24 Dental Screening Dental Screen Date: 03/08/24 Did you have a dental visit in the last 12 months?: Yes Did you have a dental problem in the last 6 months where you did not have access to dental care?: No Was dental information given to patient?: Patient has dentist HPI 4 month follow up HPI Details Patient presents for the follow-up on hypertension hyperlipidemia type 2 diabetes. He could not tolerate Mounjaro when Trulicity was not available. Patient is back on Trulicity and tolerating well. 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 Mother No problems noted. Daughter No problems noted. Brother Myocardial infarction Social History Household Members: Family Household Members Other:: older daughter, grand daughter 9 yr old Housing: House Are you a primary critical care unit manager to a significant other at home: No Do you presently have visiting nurse or other home services: No Alcohol intake: never Patient Tobacco Use Status: Former Tobacco user Cigarette Packs Per Day: 2.5 Years Smoked: 30 e-Cigarette/Vaping Use: Never Used Second Hand Smoke Exposure: No service: No Current occupational status: retired Current occupational exposures/hazards: No Cognitive needs: No Hearing needs: Yes Vision needs: No Questionnaire PHQ-9 Over the last 2 weeks, how often have you been bothered by any of the following problems? 1. Little interest or pleasure in doing things: not at all 2. Feeling down, depressed, or hopeless: not at all 3. Trouble falling or staying asleep, or sleeping too much: not at all 4. Feeling tired or having little energy: not at all 5. Poor appetite or overeating: not at all 6. Feeling bad about yourself - or that you are a failure or have let yourself or your family down: not at all 7. Trouble concentrating on things, such as reading the newspaper or watching television: not at all 8. Moving or speaking so slowly that other people could have noticed. Or the opposite - being so fidgety or restless that you have been moving around a lot more than usual: not at all 9. Thoughts that you would be better off or of hurting yourself in some way: not at all Total score: 0 Depression Screening Interpretation: Negative Depression Screening Done: Yes 24163 - PHQ-9 Billing: Yes Source: Developed by Drs. Constantino Simeon, Aixa Rivera, Michael Beavers and colleagues, with an educational shakir from [employer]. Thrive Questionnaire Date Thrive assessed: 03/08/24 I am a: Patient What is your living situation today?: I choose not to answer this question Within the past 12 months, did the food you bought not last and you didn't have the money to get more?: I choose not to answer this question Within the past 12 months, did you worry whether your food would run out before you got money to buy more?: I choose not to answer this question Do you have trouble paying for medicines?: I choose not to answer this question Do you have trouble getting transportation to medical appointments?: I choose not to answer this question Do you have trouble paying your heating and electricity bill?: I choose not to answer this question Do you have trouble taking care of your child, family member or friend?: No Do you have trouble with day-to-day activities such as bathing, preparing meals, shopping, managing finances, etc.?: I choose not to answer this question Are you interested in more education?: I choose not to answer this question THRIVE Score: 0 AUDIT C Alcohol Use Questionnaire (AUDIT-C) 1. How often do you have a drink containing alcohol?: Monthly or less 2. How many drinks containing alcohol do you have on a typical day when you are drinking?: 1 or 2 3. How often do you have six or more drinks on one occasion?: Never Total Score: 1 SINA-7 AMB Questionnaire SINA-7 Date SINA - 7 assessed: 07/03/23 Source: Developed by Drs. Constantino Simeon, Aixa Rivera, Michael Beavers and colleagues, with an educational shakir from [employer]. Review of Systems Const All systems reviewed & are unremarkable except as noted in HPI and below ENT Reports no additional complaints Card Reports no additional complaints Resp Reports no additional complaints GI Reports no additional complaints Reports no additional complaints Physical exam (Primary Care) Vital Signs: Last Vital Signs Pulse 85 03/08/24 10:46 BP 104/60 03/08/24 10:46 Pulse Ox 95 03/08/24 10:46 Oxygen Delivery Method Room Air 03/08/24 10:46 BMI result Body Mass Index 25.9 Tobacco/Smoking Status: Tobacco use Status Tobacco use date assessed 03/08/24 03/08/24 11:04 Patient Tobacco Use Status Former Tobacco user 03/08/24 10:46 e-Cigarette/Vaping Use Never Used 03/08/24 10:46 PHQ-9: PHQ-9 Score PHQ-9: Total score 0 03/08/24 11:28 Depression Screening Interpretation: Negative Thrive Assessment: Date of Thrive Assessment Date Thrive assessed 03/08/24 03/08/24 10:46 Const General: no acute distress HENMT Head: Yes normal to inspection Throat: Yes posterior oropharynx normal Neck Neck: Yes no lymphadenopathy and Yes supple Resp Effort & Inspection: normal respiratory effort Auscultation: clear to auscultation bilaterally Cardio Rhythm: regular rhythm Heart sounds: S1 normal heart sound present and S2 normal heart sound present GI Inspection: Yes normal to inspection Palpation (GI): Soft to palpation Percussion: Yes normal to percussion Auscultation: normal bowel sounds Assessment and Plan Assessment & Plan (1) COPD (chronic obstructive pulmonary disease): Comment: Follow-up with pulmonology Code(s): J44.9 - Chronic obstructive pulmonary disease, unspecified Plan: Continue Trelegy (2) Hyperlipidemia: Code(s): E78.5 - Hyperlipidemia, unspecified Plan: Continue statin (3) Diabetes: Code(s): E11.9 - Type 2 diabetes mellitus without complications Plan: A1c is 7.9, ADA diet increase physical activity discussed with the patient. He will increase Trulicity to 3 mg weekly and continue insulin. Follow-up in 3 months with a fasting labs before Orders: Orders Comprehensive [place]. Panel Fast 4 Months E11.9 - Type 2 diabetes mellitus without complications, E78.5 - Hyperlipidemia, unspecified, I10 - Essential (primary) hypertension Hemoglobin A1c 4 Months E11.9 - Type 2 diabetes mellitus without complications, E78.5 - Hyperlipidemia, unspecified, I10 - Essential (primary) hypertension Complete Blood Count Auto Diff 4 Months E11.9 - Type 2 diabetes mellitus without complications, E78.5 - Hyperlipidemia, unspecified, I10 - Essential (primary) hypertension Microalbumin, Random (w Creat) 4 Months E11.9 - Type 2 diabetes mellitus without complications, E78.5 - Hyperlipidemia, unspecified, I10 - Essential (primary) hypertension Lipid Panel 4 Months E11.9 - Type 2 diabetes mellitus without complications, E78.5 - Hyperlipidemia, unspecified, I10 - Essential (primary) hypertension Medications: New Trulicity (dulaglutide) 3 mg (0.5 mL) subcut QWEEK 6 mL 2RF NS Discontinued dulaglutide (Trulicity) Discontinued Reason: Doctor's Order 1.5 mg (0.5 mL) subcut QWEEK 6 mL 1RF Coding Level of Care Code Est Pt Level 4 (53585) Diagnoses COPD (chronic obstructive pulmonary disease) J44.9 Hyperlipidemia E78.5 Diabetes E11.9
[2024-03-08 10:46] VITALS: BP 104/60; PULSE 85; O2SAT 95; BMI 25.9
== END 2024-03-08 12:18 | disposition home or self-care (01) ==
PROVIDERS: PCP Internal Medicine; Visit Provider Internal Medicine
DX: J44.9 Chronic obstructive pulmonary disease, unspecified (principal); E78.5 Hyperlipidemia, unspecified; E11.9 Type 2 diabetes mellitus without complications

== ENCOUNTER → 2024-03-08 10:28 | Outpatient (BNVA) | payer MEDICARE, SELFPAY | PROVIDERS: PCP Internal Medicine; Visit Provider Internal Medicine | DX: E11.9 Type 2 diabetes mellitus without complications (principal); J44.9 Chronic obstructive pulmonary disease, unspecified; E78.5 Hyperlipidemia, unspecified; Z79.85 Long-term (current) use of injectable non-insulin antidiabetic drugs | CPT/HCPCS: 99212 ==

== ENCOUNTER 2024-07-06 07:17 | Outpatient (REF) | payer MEDICARE, SELFPAY ==
[2024-07-06 10:00] LABS: MANUAL DIFF FLAG NO
[2024-07-06 10:03] LABS: Basophils Absolute Auto 0.1 X10*3/uL (0.0-0.2); Basophils Percent Auto 0.7 % (0-2); Eosinophils Absolute Auto 0.7 X10*3/uL (0.0-0.4); Eosinophils Percent Auto 6.8 % (0-4); Hematocrit 45.1 % (42.0-52.0); Hemoglobin 15.4 g/dl (14.0-18.0); Imm Gran Abs Auto 0.03 X10*3/uL (0.00-0.03); Imm Gran Pct Auto 0.3 % (0.0-0.4); Lymphocytes Absolute Auto 3.1 X10*3/uL (1.2-4.9); Mean Corpuscular HGB Conc 34.1 g/dl (31.0-36.0); Mean Corpuscular Hemoglobin 28.6 pg (27.0-33.0); Mean Corpuscular Volume 83.7 fL (80.0-98.0); Mean Platelet Volume 10.3 fL (9.4-12.4); Monocytes Percent Auto 8.9 % (2-11); Neutrophils Percent Auto 55.3 % (45-73); Platelet Count 313 X10*3/uL (160-400); Red Blood Count 5.39 X10*6/uL (4.60-5.80); White Blood Count 10.9 X10*3/uL (4.8-10.8)
[2024-07-06 10:11] LABS: Estimated Average Glucose 177 mg/dL; Hemoglobin A1C 246.3837 umol/L; Hemoglobin A1c % 7.8 % (<6.0); Total Hemoglobin (HGBA1C) 3999.6263 umol/L
[2024-07-06 10:52] LABS: Alanine Aminotransferase 58 U/L (0-40); Albumin Level 3.9 g/dL (3.5-5.0); Alkaline Phosphatase 55 U/L (39-117); Anion Gap 12 (12-20); Aspartate Amino Transferase 41 U/L (5-37); Bilirubin Total 0.3 mg/dL (0.0-1.0); Blood Urea Nitrogen 15 mg/dL (9-16); Calcium 8.4 mg/dL (8.4-10.2); Carbon Dioxide 24 mmol/L (22-29); Chloride 104 mmol/L (96-108); Cholesterol 62 mg/dL (<200); Estimated Glomerular Filt Rate > 60; Glucose Fasting 186 mg/dL (60-99); HDL Cholesterol 28 mg/dL (>40); LDL Cholesterol Calculated 19 mg/dL (<100); Potassium 4.4 mmol/L (3.3-5.1); Sodium 136 mmol/L (135-145); Total Protein 6.7 g/dL (6.5-8.0); Triglycerides 76 mg/dL (<150)
== END 2024-07-06 07:18 | disposition home or self-care (01) ==
LOC: HO.HMGCLDS 07:17
PROVIDERS: PCP Internal Medicine; Visit Provider Internal Medicine
DX: I10 Essential (primary) hypertension (principal); E11.9 Type 2 diabetes mellitus without complications; E78.5 Hyperlipidemia, unspecified
CPT/HCPCS: 36415; 80053; 80061; 83036; 85025

== ENCOUNTER 2024-07-13 07:52 | Outpatient (AMB) | payer MEDICARE, SELFPAY ==
--- NOTE | 2024-07-13 08:06 | A.OFFPC_ITS ---
Vital Signs 07/13/24 08:07 Height 6 ft Weight 195 lb BMI 26.4 BP 112/60 Blood Pressure Location Rt brachial Position Sitting Pulse 80 Pulse Source Pulse Oximeter Pulse Oximetry (%) 93 Oxygen Delivery Method Room Air Intake Visit Reasons: Annual PE Allergies amoxicillin [AMOXICILLIN] Allergy (Severe, Verified 07/13/24 08:08) VOMITING Sulfa (Sulfonamide Antibiotics) [SULFA (SULFONAMIDE ANTIBIOTICS)] Allergy (Severe, Verified 07/13/24 08:08) HIVES losartan Allergy (Intermediate, Verified 07/13/24 08:08) hyperkalemia moxifloxacin [From Avelox] Allergy (Unknown, Verified 07/13/24 08:08) Pt does not remeber lisinopril Adverse Reaction (Intermediate, Verified 07/13/24 08:08) cough metformin Adverse Reaction (Intermediate, Verified 07/13/24 08:08) Diarrhea pravastatin Adverse Reaction (Intermediate, Verified 07/13/24 08:08) diarrhea sitagliptin [Januvia] Adverse Reaction (Intermediate, Verified 07/13/24 08:08) stomach upset Medication List - Last Reconciled 07/13/24 by Marisel To MD amlodipine 10 mg PO DAILY aspirin 81 mg PO DAILY bisoprolol-hydrochlorothiazide 10-6.25 mg 1 tab PO DAILY blood sugar diagnostic (OneTouch Ultra Test strips) test blood sugar 3 times a day blood-glucose meter (AccumulateTouch Ultra2 Meter) As directed [fish oil 1,000 mg daily] hsefydzhhez-agdkbefkh-qpvemmjj 100-62.5-25 mcg (Trelegy Ellipta) 1 ea inhalation DAILY insulin glargine (Basaglar Tempo Pen (U-100) Insulin) 48 units (0.48 mL) subcut QAM lansoprazole 30 mg PO DAILY losartan 50 mg PO DAILY omega-3 fatty acids (Fish Oil Concentrate) 1,000 mg PO DAILY pen needle, diabetic (BD Ultra-Fine Micro Pen Needle) 1 qd rosuvastatin 20 mg PO DAILY triamcinolone acetonide 0.1% 1 appl topical DAILY Trulicity (dulaglutide) 3 mg (0.5 mL) subcut QWEEK NS Tobacco use date assessed: 07/13/24 Fall risk assessment: No Falls in past year Last assessed Fall Risk: 07/13/24 Dental Screening Dental Screen Date: 07/13/24 Did you have a dental visit in the last 12 months?: Yes Did you have a dental problem in the last 6 months where you did not have access to dental care?: No Was dental information given to patient?: Patient has dentist HPI Annual PE HPI Details Pt presents for PE. 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 Mother No problems noted. Daughter No problems noted. Brother Myocardial infarction Social History Household Members: Family Household Members Other:: older daughter, grand daughter 9 yr old Housing: House Are you a primary coronary care unit nurse to a significant other at home: No Do you presently have visiting nurse or other home services: No Alcohol intake: never Patient Tobacco Use Status: Former Tobacco user Cigarette Packs Per Day: 2.5 Years Smoked: 30 e-Cigarette/Vaping Use: Never Used Second Hand Smoke Exposure: No service: No Current occupational status: retired Current occupational exposures/hazards: No Cognitive needs: No Hearing needs: Yes Vision needs: No Questionnaire PHQ-9 Over the last 2 weeks, how often have you been bothered by any of the following problems? 1. Little interest or pleasure in doing things: not at all Source: Developed by Drs. Constantino Simeon, Aixa Rivera, Michael Beavers and colleagues, with an educational shakir from [employer]. Thrive Questionnaire Date Thrive assessed: 07/13/24 I am a: Patient What is your living situation today?: I have a steady place to live Within the past 12 months, did the food you bought not last and you didn't have the money to get more?: Often true Within the past 12 months, did you worry whether your food would run out before you got money to buy more?: Often true Do you have trouble paying for medicines?: Yes Do you have trouble getting transportation to medical appointments?: No Do you have trouble paying your heating and electricity bill?: No Do you have trouble taking care of your child, family member or friend?: No Do you have trouble with day-to-day activities such as bathing, preparing meals, shopping, managing finances, etc.?: I choose not to answer this question Are you currently unemployed and looking for a job?: I choose not to answer this question Are you interested in more education?: I choose not to answer this question Please select the resources that you would like help with: None Currently or been in a relationship where the following occur: I choose not to answer THRIVE Score: 2 AUDIT C Alcohol Use Questionnaire (AUDIT-C) 1. How often do you have a drink containing alcohol?: Never Total Score: 0 SINA-7 AMB Questionnaire SINA-7 Date SINA - 7 assessed: 07/03/23 Feeling nervous, anxious, or on edge: 2 = More than half the days Source: Developed by Drs. Constantino Simeon, Aixa Rivera, Michael Beavers and colleagues, with an educational shakir from [employer]. Review of Systems Const All systems reviewed & are unremarkable except as noted in HPI and below Reports no additional complaints Eyes Reports no additional complaints ENT Reports no additional complaints Card Reports no additional complaints Resp Reports no additional complaints GI Reports no additional complaints Reports no additional complaints Physical exam (Primary Care) Vital Signs: Last Vital Signs Pulse 80 07/13/24 08:07 BP 112/60 07/13/24 08:07 Pulse Ox 93 07/13/24 08:07 Oxygen Delivery Method Room Air 07/13/24 08:07 BMI result Body Mass Index 26.4 Tobacco/Smoking Status: Tobacco use Status Tobacco use date assessed 07/13/24 07/13/24 08:10 Patient Tobacco Use Status Former Tobacco user 07/13/24 08:10 e-Cigarette/Vaping Use Never Used 07/13/24 08:10 Thrive Assessment: Date of Thrive Assessment Date Thrive assessed 07/13/24 07/13/24 08:10 Currently or been in a relationship where the following occur: I choose not to answer Const General: no acute distress HENMT Head: Yes normal to inspection General nose exam: Normal external nose present Face and sinus: Yes normal facial exam Throat: Yes posterior oropharynx normal Eyes General: appearance normal, both eyes and all related structures Neck Neck: Yes no lymphadenopathy and Yes supple Resp Effort & Inspection: normal respiratory effort Auscultation: crackles (bases) bilateral Cardio Rhythm: regular rhythm Heart sounds: S1 normal heart sound present and S2 normal heart sound present GI Inspection: Yes normal to inspection Palpation (GI): Soft to palpation Percussion: Yes normal to percussion Auscultation: normal bowel sounds Extrem Other: Diabetic foot exam skin is intact monofilament sensation intact bilaterally General: Yes no clubbing, cyanosis or edema Coding Level of Care Code Est Pt Prev Care >65y(94254) Diagnoses Dysplastic nevi D23.9 COPD (chronic obstructive pulmonary disease) J44.9 Diabetes E11.9 HTN (hypertension) I10 Hyperlipidemia E78.5 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 I74.2 Annual physical exam Z00.00 Colonoscopy refused Z53.20 Assessment & Plan Assessment & Plan (1) Dysplastic nevi: Comment: Left scapular region Code(s): D23.9 - Other benign neoplasm of skin, unspecified Category: Medical Plan: Refer to dermatology (2) COPD (chronic obstructive pulmonary disease): Comment: Follow-up with pulmonology Code(s): J44.9 - Chronic obstructive pulmonary disease, unspecified Category: Medical Plan: Controlled on Trelegy (3) Diabetes: Code(s): E11.9 - Type 2 diabetes mellitus without complications Category: Medical Plan: A1c is 7.8, ADA diet increase physical activity discussed with the patient. 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: Comment: Follow-up with [facility] vascular surgery Code(s): I74.2 - Embolism and thrombosis of arteries of the upper extremities Category: Medical Plan: Continue statin and aspirin follow-up with vascular surgeon (7) Annual physical exam: Code(s): Z00.00 - Encounter for general adult medical examination without abnormal findings Category: Medical Plan: Well-balanced diet regular physical activity discussed with the patient (8) Colonoscopy refused: Comment: 06/2024 Code(s): Z53.20 - Procedure and treatment not carried out because of patient's decision for unspecified reasons Category: Medical Plan: Patient declined colonoscopy and Cologuard Orders: Orders Hemoglobin A1c 4 Months E11.9 - Type 2 diabetes mellitus without complications, E78.5 - Hyperlipidemia, unspecified, I10 - Essential (primary) hypertension, I74.2 - Embolism and thrombosis of arteries of the upper extremities, J44.9 - Chronic obstructive pulmonary disease, unspecified, Z00.00 - Encounter for [facility] adult medical examination without abnormal findings Comprehensive [place]. Panel Fast 4 Months E11.9 - Type 2 diabetes mellitus without complications, E78.5 - Hyperlipidemia, unspecified, I10 - Essential (primary) hypertension, I74.2 - Embolism and thrombosis of arteries of the upper extremities, J44.9 - Chronic obstructive pulmonary disease, unspecified, Z00.00 - Encounter for general adult medical examination without abnormal findings Complete Blood Count Auto Diff 4 Months E11.9 - Type 2 diabetes mellitus without complications, E78.5 - Hyperlipidemia, unspecified, I10 - Essential (primary) hypertension, I74.2 - Embolism and thrombosis of arteries of the upper extremities, J44.9 - Chronic obstructive pulmonary disease, unspecified, Z00.00 - Encounter for general adult medical examination without abnormal findings Microalbumin, Random (w Creat) 4 Months E11.9 - Type 2 diabetes mellitus without complications, E78.5 - Hyperlipidemia, unspecified, I10 - Essential (primary) hypertension, I74.2 - Embolism and thrombosis of arteries of the upper extremities, J44.9 - Chronic obstructive pulmonary disease, unspecified, Z00.00 - Encounter for general adult medical examination without abnormal findings Lipid Panel 4 Months E11.9 - Type 2 diabetes mellitus without complications, E 78.5 - Hyperlipidemia, unspecified, I10 - Essential (primary) hypertension, I74.2 - Embolism and thrombosis of arteries of the upper extremities, J44.9 - Chronic obstructive pulmonary disease, unspecified, Z00.00 - Encounter for general adult medical examination without abnormal findings Referrals Dermatology Referral D23.9 - Other benign neoplasm of skin, unspecified Medications: New dulaglutide (Trulicity) 4.5 mg (0.5 mL) subcut QWEEK 6 mL 3RF insulin glargine (Basaglar Tempo Pen (U-100) Insulin) 48 units (0.48 mL) subcut QAM 45 mL 3RF triamcinolone acetonide 0.1% 1 appl topical DAILY 30 grams 1RF Discontinued insulin glargine (Lantus Solostar U-100 Insulin) Discontinued Reason: Doctor's Order 48 units (0.48 mL) subcut QPM 45 mL 3RF Trulicity (dulaglutide) Discontinued Reason: Doctor's Order 3 mg (0.5 mL) subcut QWEEK 6 mL 2RF NS hydrocortisone valerate 0.2% Discontinued Reason: Doctor's Order 1 appl topical BID PRN 60 grams 0RF skin irritation
[2024-07-13 08:07] VITALS: BP 112/60; PULSE 80; O2SAT 93; BMI 26.4
== END 2024-07-13 08:42 | disposition home or self-care (01) ==
PROVIDERS: PCP Internal Medicine; Visit Provider Internal Medicine
DX: Z00.00 Encounter for general adult medical examination without abnormal findings (principal); J44.9 Chronic obstructive pulmonary disease, unspecified; I74.2 Embolism and thrombosis of arteries of the upper extremities; E11.69 Type 2 diabetes mellitus with other specified complication; D23.9 Other benign neoplasm of skin, unspecified; I10 Essential (primary) hypertension; E78.5 Hyperlipidemia, unspecified; Z53.20 Procedure and treatment not carried out because of patient's decision for unspecified reasons

== ENCOUNTER → 2024-07-13 07:52 | Outpatient (BNVA) | payer MEDICARE, SELFPAY | PROVIDERS: PCP Internal Medicine; Visit Provider Internal Medicine | DX: Z00.00 Encounter for general adult medical examination without abnormal findings (principal); D23.9 Other benign neoplasm of skin, unspecified; J44.9 Chronic obstructive pulmonary disease, unspecified; E11.9 Type 2 diabetes mellitus without complications; E78.5 Hyperlipidemia, unspecified; I10 Essential (primary) hypertension; I74.2 Embolism and thrombosis of arteries of the upper extremities | CPT/HCPCS: 99397 ==

== ENCOUNTER 2024-11-02 06:01 | Outpatient (REF) | payer MEDICARE, SELFPAY ==
--- OUTSIDE RECORDS SUMMARY | 2024-11-02 06:03 | XMS_ITS | Clinical Summary ---
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 Role Phone Juancho Ramires MD Unavailable [phone] Marisel To MD Primary Care Provider [phone] Allergies Active Allergy Reactions Criticality Noted Date Comments Amoxicillin Unknown/Patient and Family Unable to Define Medium 10/08/2021 Sitagliptin Unknown/Patient and Family Unable to Define Medium 10/08/2021 Lisinopril Unknown/Patient and Family Unable to Define Medium 10/08/2021 Moxifloxacin Unknown/Patient and Family Unable to Define Medium 10/08/2021 Pravastatin Unknown/Patient and Family Unable to Define Medium 10/08/2021 Sulfa Antibiotics Unknown/Patient and Family Unable to Define Medium 10/08/2021 Medications aspirin 81 MG chewable tabletIndicatio ns:Ischemia of left upper extremity Chew 1 tablet (81 mg total) daily. Do not start before October 11, 2021. 30 tablet 2 Active losartan (COZAAR) 50 MG tabletIndicatio ns:Ischemia of left upper extremity Take 1 tablet (50 mg total) by mouth daily. Do not start before October 11, 2021. 30 tablet 3 2 Active rosuvastatin (CRESTOR) 20 MG tabletIndicatio ns:Ischemia of left upper extremity Take 1 tablet (20 mg total) by mouth every evening after dinner. 30 tablet 11 2 Active apixaban starter pack (Eliquis) 5 MG Tablet Therapy Pack tabletIndicatio ns:Ischemia of left upper extremity Take 2 tablets (10 mg) twice daily for 7 days followed by 1 tablet (5 mg) twice daily. 74 tablet 11 2 Active amLODIPine (NORVASC) 10 MG tabletIndicatio ns:Ischemia of left upper extremity Take 1 tablet (10 mg total) by mouth daily. Do not start before October 11, 2021. 30 tablet 2 Active bisoprolol (ZEBeta) 10 MG tabletIndicatio ns:Ischemia of left upper extremity Take 1 tablet (10 mg total) by mouth daily. Do not start before October 11, 2021. 30 tablet 2 Active hydrochlorothia zide (HYDRODIURIL) 12.5 MG tabletIndicatio ns:Ischemia of left upper extremity Take 0.5 tablets (6.25 mg total) by mouth daily. 15 tablet 3 2 10/11/19 Discontinu ed(Stop Taking at Discharge) rivaroxaban (XARELTO) 20 MG tabletIndicatio ns:Ischemia of left upper extremity Take 1 tablet (20 mg total) by mouth every evening with dinner. Take with meals. 30 tablet 11 2 10/11/19 Discontinu ed(Stop Taking at Discharge) Active Problems Problem Noted Date Diagnosed Date Ischemia of left upper extremity 10/09/2021 Social History Tobacco Use Types Packs/Day Years Used Date Smoking Tobacco: Never Assessed Sex and Gender Information Value Date Recorded Sex Assigned at Not on file Legal Sex Male 2:58 PM EDT Gender Identity Not on file Sexual Orientation Not on file Last Filed Vital Signs Vital Sign Reading Time Taken Comments Blood Pressure 150/68 10/10/2021 8:13 AM EDT Pulse 78 10/10/2021 8:13 AM EDT Temperature 36.1 ??C (96.9 ??F) 10/10/2021 8:13 AM ED T Respiratory Rate 18 10/10/2021 8:13 AM EDT Oxygen Saturation 96% 10/10/2021 8:13 AM EDT Inhaled Oxygen Concentration - - Weight 90.7 kg (200 lb) 10/08/2021 11:55 PM EDT Height - - Body Mass Index - - Plan of Treatment Health Maintenance Due Date Last Done Comments Hepatitis C Virus Screening 1955 DTaP/Tdap/Td Vaccines (1 - Tdap) 1972 Colonoscopy 1998 Pneumococcal Vaccines 50+ (1 of 1 - PCV) 2003 Zoster (Shingles) Vaccine (1 of 2) 2003 RSV Vaccine 60 years and older and Patients (1 - Risk 60-74 years 1-dose series) 2013 COVID-19 Vaccine (1 - season) 2024 Influenza Vaccine 01/21/2025 03/28/2017, , 04/10/2016, Additional history exists Hepatitis B Vaccines Aged Out No long er eligible based on patient's age to complete this topic Insurance [employer] MEDICARE Advance Directives * Full Code (Latest Code Status on File) Date Activated Date Inactivated Comments 10/09/2021 12:28 AM Care Teams Rigging Loft Repairer Relationship Specialty Start Date End Date Marisel To MD [address] [place] [address] PCP - General 10/10/21 Juancho Ramires MD [address] [place] [address] Cardiovascular Disease 10/09/21
[2024-11-02 10:14] LABS: MANUAL DIFF FLAG NO
[2024-11-02 10:23] LABS: Basophils Absolute Auto 0.1 X10*3/uL (0.0-0.2); Basophils Percent Auto 0.8 % (0-2); Eosinophils Absolute Auto 1.1 X10*3/uL (0.0-0.4); Eosinophils Percent Auto 8.1 % (0-4); Hematocrit 44.9 % (42.0-52.0); Hemoglobin 15.1 g/dl (14.0-18.0); Imm Gran Abs Auto 0.06 X10*3/uL (0.00-0.03); Imm Gran Pct Auto 0.5 % (0.0-0.4); Lymphocytes Percent Auto 22.6 % (20-40); Mean Corpuscular HGB Conc 33.6 g/dl (31.0-36.0); Mean Corpuscular Hemoglobin 28.5 pg (27.0-33.0); Mean Corpuscular Volume 84.7 fL (80.0-98.0); Mean Platelet Volume 10.9 fL (9.4-12.4); Monocytes Absolute Auto 0.9 X10*3/uL (0.1-1.2); Monocytes Percent Auto 7.2 % (2-11); Neutrophils Percent Auto 60.8 % (45-73); Platelet Count 278 X10*3/uL (160-400); Red Cell Distribution Width 12.9 % (11.0-16.0); White Blood Count 13.1 X10*3/uL (4.8-10.8)
[2024-11-02 10:32] LABS: Estimated Average Glucose 177 mg/dL; Hemoglobin A1C 242.8186 umol/L; Hemoglobin A1c % 7.8 % (<6.0)
[2024-11-02 11:20] LABS: Alanine Aminotransferase 45 U/L (0-40); Anion Gap 13 (12-20); Aspartate Amino Transferase 54 U/L (5-37); Bilirubin Total 0.3 mg/dL (0.0-1.0); Blood Urea Nitrogen 18 mg/dL (9-16); Calcium 8.9 mg/dL (8.4-10.2); Carbon Dioxide 22 mmol/L (22-29); Chloride 103 mmol/L (96-108); Cholesterol 58 mg/dL (<200); Estimated Glomerular Filt Rate > 60; Glucose Fasting 153 mg/dL (60-99); HDL Cholesterol 28 mg/dL (>40); LDL Cholesterol Calculated 11 mg/dL (<100); Potassium 4.2 mmol/L (3.3-5.1); Sodium 134 mmol/L (135-145); Total Protein 6.7 g/dL (6.5-8.0); Triglycerides 95 mg/dL (<150)
[2024-11-02 12:50] LABS: Alkaline Phosphatase 59 U/L (39-117)
== END 2024-11-02 06:02 | disposition home or self-care (01) ==
LOC: HO.HMGCLDS 06:01
PROVIDERS: PCP Internal Medicine; Visit Provider Internal Medicine
DX: Z00.00 Encounter for general adult medical examination without abnormal findings (principal); I74.2 Embolism and thrombosis of arteries of the upper extremities; J44.9 Chronic obstructive pulmonary disease, unspecified; E11.9 Type 2 diabetes mellitus without complications; I10 Essential (primary) hypertension; E78.5 Hyperlipidemia, unspecified
CPT/HCPCS: 36415; 80053; 80061; 83036; 85025

== ENCOUNTER 2024-11-10 09:09 | Outpatient (AMB) | payer MEDICARE, SELFPAY ==
[2024-11-10 09:24] VITALS: BP 116/60; PULSE 70; RESP 18; TEMP 36.7; O2SAT 96; BMI 26.2
--- NOTE | 2024-11-10 09:24 | MHC.PC.OV ---
Vital Signs 11/10/24 09:24 Height 6 ft Weight 193 lb BMI 26.2 BP 116/60 Blood Pressure Location Rt brachial Position Sitting Respiration 18 Pulse 70 Pulse Source Pulse Oximeter Temp 98.0 F Temp Source Oral Pulse Oximetry (%) 96 Oxygen Delivery Method Room Air Intake Visit Reasons: 4 months f/up Intake Note: Pt is here today for 4 months follow up visit. Allergies amoxicillin [AMOXICILLIN] Allergy (Severe, Verified 11/10/24 09:25) VOMITING Sulfa (Sulfonamide Antibiotics) [SULFA (SULFONAMIDE ANTIBIOTICS)] Allergy (Severe, Verified 11/10/24 09:25) HIVES losartan Allergy (Intermediate, Verified 11/10/24 09:25) hyperkalemia moxifloxacin [From Avelox] Allergy (Unknown, Verified 11/10/24 09:25) Pt does not remeber lisinopril Adverse Reaction (Intermediate, Verified 11/10/24 09:25) cough metformin Adverse Reaction (Intermediate, Verified 11/10/24 09:25) Diarrhea pravastatin Adverse Reaction (Intermediate, Verified 11/10/24 09:25) diarrhea sitagliptin [Januvia] Adverse Reaction (Intermediate, Verified 11/10/24 09:25) stomach upset Medication List - Last Reconciled 11/10/24 by Marisel To MD amlodipine 10 mg PO DAILY aspirin 81 mg PO DAILY bisoprolol-hydrochlorothiazide 10-6.25 mg 1 tab PO DAILY blood sugar diagnostic (OneTouch Ultra Test strips) test blood sugar 3 times a day blood-glucose meter (RadiantBlue TechnologiesTouch Ultra2 Meter) As directed dulaglutide (Trulicity) 4.5 mg (0.5 mL) subcut QWEEK [fish oil 1,000 mg daily] eelebnpnfwi-ggkqevhqc-kobmlzyb 100-62.5-25 mcg (Trelegy Ellipta) 1 ea inhalation DAILY insulin glargine (Basaglar Tempo Pen (U-100) Insulin) 48 units (0.48 mL) subcut QAM insulin glargine (Basaglar KwikPen U-100 Insulin) 48 units (0.48 mL) subcut QAM lansoprazole 30 mg PO DAILY losartan 50 mg PO DAILY omega-3 fatty acids (Fish Oil Concentrate) 1,000 mg PO DAILY pen needle, diabetic (BD Ultra-Fine Micro Pen Needle) 1 qd rosuvastatin 20 mg PO DAILY triamcinolone acetonide 0.1% 1 appl topical DAILY Tobacco use date assessed: 11/10/24 Fall risk assessment: No Falls in past year Last assessed Fall Risk: 11/10/24 Dental Screening Dental Screen Date: 11/10/24 Did you have a dental visit in the last 12 months?: Yes HPI 4 months f/up HPI Details Patient presents for the follow-up of hypertension type 2 diabetes COPD hyperlipidemia stable on current medications [facility] Medical History Hx of cataract 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 Mother No problems noted. Daughter No problems noted. Brother Myocardial infarction Social History Household Members: Family Household Members Other:: older daughter, grand daughter 9 yr old Housing: House Are you a primary rn care manager to a significant other at home: No Do you presently have visiting nurse or other home services: No Alcohol intake: never Patient Tobacco Use Status: Former Tobacco user Cigarette Packs Per Day: 2.5 Years Smoked: 30 e-Cigarette/Vaping Use: Never Used Second Hand Smoke Exposure: No service: No Current occupational status: retired Current occupational exposures/hazards: No Cognitive needs: No Hearing needs: Yes Vision needs: No Questionnaire PHQ-9 Over the last 2 weeks, how often have you been bothered by any of the following problems? 2. Feeling down, depressed, or hopeless: not at all 3. Trouble falling or staying asleep, or sleeping too much: not at all Source: Developed by Drs. Constantino Simeon, Aixa B.Michael Jones and colleagues, with an educational shakir from [employer]. Thrive Questionnaire Date Thrive assessed: 07/13/24 I am a: Patient What is your living situation today?: I have a steady place to live Within the past 12 months, did the food you bought not last and you didn't have the money to get more?: Often true Within the past 12 months, did you worry whether your food would run out before you got money to buy more?: Often true Do you have trouble paying for medicines?: Yes Do you have trouble getting transportation to medical appointments?: No Do you have trouble paying your heating and electricity bill?: No Do you have trouble taking care of your child, family member or friend?: No Do you have trouble with day-to-day activities such as bathing, preparing meals, shopping, managing finances, etc.?: I choose not to answer this question Are you currently unemployed and looking for a job?: I choose not to answer this question Are you interested in more education?: I choose not to answer this question Please select the resources that you would like help with: None Currently or been in a relationship where the following occur: I choose not to answer THRIVE Score: 2 SINA-7 AMB Questionnaire SINA-7 Date SINA - 7 assessed: 07/03/23 Source: Developed by Drs. Constantino Simeon, Michael Rosales and colleagues, with an educational shakir from [employer]. Review of Systems Const All systems reviewed & are unremarkable except as noted in HPI and below ENT Reports no additional complaints Card Reports no additional complaints Resp Reports no additional complaints GI Reports no additional complaints Reports no additional complaints Physical exam (Primary Care) Vital Signs: Last Vital Signs Temp 98.0 F 11/10/24 09:24 Pulse 70 11/10/24 09:24 Resp 18 11/10/24 09:24 BP 116/60 11/10/24 09:24 Pulse Ox 96 11/10/24 09:24 Oxygen Delivery Method Room Air 11/10/24 09:24 BMI result Body Mass Index 26.2 Tobacco/Smoking Status: Tobacco use Status Tobacco use date assessed 11/10/24 11/10/24 09:25 Patient Tobacco Use Status Former Tobacco user 11/10/24 09:25 e-Cigarette/Vaping Use Never Used 11/10/24 09:25 Thrive Assessment: Date of Thrive Assessment Date Thrive assessed 07/13/24 11/10/24 09:25 Currently or been in a relationship where the following occur: I choose not to answer Const General: no acute distress HENMT Head: Yes normal to inspection Ears: hearing grossly normal bilaterally Mouth: Normal oral and palatal mucosa present Eyes General: appearance normal, both eyes and all related structures Neck Neck: Yes no lymphadenopathy and Yes supple Resp Effort & Inspection: normal respiratory effort Auscultation: clear to auscultation bilaterally Cardio Rhythm: regular rhythm Heart sounds: S1 normal heart sound present and S2 normal heart sound present GI Inspection: Yes normal to inspection Palpation (GI): Soft to palpation Percussion: Yes normal to percussion Auscultation: normal bowel sounds Immunizations pneumoc 20-adam conj-dip cr(PF) 0.5 mL IM syringe Performing Provider: Marisel To MD Performing [facility] [facility] Administered by: LEV Connolly on 11/10/24 09:56 Dose Route Admin Location Dispensed Lot Number Expiration Date NDC Child Care Director 0.5 mL IM Right Deltoid 0.5 mL [id number] 09/20/25 3590-7244-[address] VIS Given Date VIS Provided VIS Publication Date 11/10/24 Single Vaccine 21 Eligibility Eligibility Date Funding Source Not [facility] Eligible 11/10/24 Private Coding Level of Care Code Est Pt Level 4 (11193) Complex EM visit Add On G2211 Diagnoses Diabetes E11.9 HTN (hypertension) I10 Hyperlipidemia E78.5 COPD (chronic obstructive pulmonary disease) J44.9 Assessment & Plan Assessment & Plan (1) Diabetes: Code(s): E11.9 - Type 2 diabetes mellitus without complications Category: Medical Plan: A1c is 7.8, ADA diet increase exercise weight loss discussed with the patient continue insulin and increase Trulicity to 4.5 mg a week. Follow-up in 4 months with a fasting labs before (2) HTN (hypertension): Code(s): I10 - Essential (primary) hypertension Category: Medical Plan: Continue current medications (3) Hyperlipidemia: Code(s): E78.5 - Hyperlipidemia, unspecified Category: Medical Plan: Continue statin (4) COPD (chronic obstructive pulmonary disease): Comment: Follow-up with pulmonology Code(s): J44.9 - Chronic obstructive pulmonary disease, unspecified Category: Medical Plan: Continue Trelegy Orders: Orders Lipid Panel 4 Months E11.9 - Type 2 diabetes mellitus without complications, E78.5 - Hyperlipidemia, unspecified, I10 - Essential (primary) hypertension Microalbumin, Random (w Creat) 4 Months E11.9 - Type 2 diabetes mellitus without complications, E78.5 - Hyperlipidemia, unspecified, I10 - Essential (primary) hypertension Hemoglobin A1c 4 Months E11.9 - Type 2 diabetes mellitus without complications, E78.5 - Hyperlipidemia, unspecified, I10 - Essential (primary) hypertension PSA,Total (Free>4and<10) 4 Months E11.9 - Type 2 diabetes mellitus without complications, E78.5 - Hyperlipidemia, unspecified, I10 - Essential (primary) hypertension Comprehensive [place]. Panel Fast 4 Months E11.9 - Type 2 diabetes mellitus without complications, E78.5 - Hyperlipidemia, unspecified, I10 - Essential (primary) hypertension Pneumococcal 20 Immunization Today Z23 - Encounter for immunization Medications: New sildenafil (Viagra) administer 30 minutes to 4 hours before activity 100 mg PO DAILY PRN 10 tabs 0RF sexual activity Refilled amlodipine 10 mg PO DAILY 90 tabs 3RF blood sugar diagnostic (OneTouch Ultra Test strips) test blood sugar 3 times a day 300 ea 3RF rosuvastatin 20 mg PO DAILY 90 tabs 3RF Discontinued insulin glargine (Basaglar Tempo Pen (U-100) Insulin) Discontinued Reason: Doctor's Order 48 units (0.48 mL) subcut QAM 45 mL 3RF
--- OUTSIDE RECORDS SUMMARY | 2024-11-10 10:23 | XMS_ITS ---
Author Name [facility] [[email or web address] Organization Unknown Encounters Encounter Type Encounter Reason Primary Diagnosis Location Date [facility] 11/09/2021 [facility] 11/09/2021 Inpatient Other disorder o f circulatory system [place] [employer] 10/08/2021 Care Team Organization Name Specialty Phone Email Start Date End Da te [facility] [employer] MARISEL TO Primary Care 11/09/2021 02/09/20 [facility] Marisel To Primary Care 10/08/2021 11/10/19 22 [facility] [employer] 10/08/2021 10/08/2021
--- OUTSIDE RECORDS SUMMARY | 2024-11-10 10:23 | XMS_ITS | Clinical Summary ---
Author Organization [facility] Address [address] [place] [address] Care Team Providers Care Oracle Programmer Name Role Phone Juancho Ramires MD Unavailable [phone] Marisel To MD Primary Care Provider [phone] Allergies Active Allergy Reactions Criticality Noted Date [...] patient's age to complete this topic Insurance [place] [employer] MEDICARE Advance Directives * Full Code (Latest Code Status on File) Date Activated Date Inactivated Comments 10/09/2021 12:28 AM Care Teams Oracle Programmer Relationship Specialty Start Date End Date Marisel To MD [address] [place] [address] PCP - General 10/10/21 Juancho Ramires MD [address] [place] [address] Cardiovascular Disease 10/09/21
== END 2024-11-10 09:58 | disposition home or self-care (01) ==
LOC: HO.HMCC 09:10
PROVIDERS: PCP Internal Medicine; Visit Provider Internal Medicine
DX: E11.9 Type 2 diabetes mellitus without complications (principal); I10 Essential (primary) hypertension; E78.5 Hyperlipidemia, unspecified; J44.9 Chronic obstructive pulmonary disease, unspecified; Z23 Encounter for immunization

== ENCOUNTER → 2024-11-10 09:09 | Outpatient (BNVA) | payer MEDICARE, SELFPAY | PROVIDERS: PCP Internal Medicine; Visit Provider Internal Medicine | DX: E11.9 Type 2 diabetes mellitus without complications (principal); I10 Essential (primary) hypertension; E78.5 Hyperlipidemia, unspecified; J44.9 Chronic obstructive pulmonary disease, unspecified; Z23 Encounter for immunization | CPT/HCPCS: 90471; 90677; 99212 ==

== ENCOUNTER 2025-03-14 06:02 | Outpatient (REF) | payer MEDICARE, SELFPAY ==
--- OUTSIDE RECORDS SUMMARY | 2025-03-14 06:05 | XMS_ITS | Clinical Summary ---
Author Organization [facility] Address [address] [place] [address] Care Team Providers Care Software Systems Architect Name Role Phone Juancho Ramires MD Unavailable [phone] Marisel To MD Primary Care Provider [phone] Allergies Active Allergy Reactions Criticality Noted Date [...] 78 10/10/2021 8:13 AM EDT Temperature 36.1 C (96.9 F) 10/10/2021 8:13 AM EDT Respiratory Rate 18 10/10/2021 8:13 AM EDT Oxygen Saturation 96% 10/10/2021 8:13 AM EDT Inhaled Oxygen Concentration - - Weight 90.7 kg (200 lb) 10/08/2021 11:55 PM EDT Height - - Body Mass Index - - Plan of Treatment Health Maintenance Due Date Last Done Comments Advance Care Planning 1955 Hepatitis C Virus Screening 1955 DTaP/Tdap/Td Vaccines (1 - Tdap) 1972 Colonoscopy 1998 Pneumococcal Vaccines 50+ (1 of 1 - PCV) 2003 Zoster (Shingles) Vaccine (1 of 2) 2003 RSV Vaccine 60 years and older and Patients (1 - Risk 60-74 years 1-dose series) 2013 Influenza Vaccine 01/21/2025 03/28/2017, , 04/10/2016, Additional history exists COVID-19 Vaccine (1 - season) 2025 Hepatitis B Vaccines Aged Out No long er eligible based on patient's age to complete this topic Insurance [employer]GD MEDICARE Advance Directives * Full Code (Latest Code Status on File) Date Activated Date Inactivated Comments 10/09/2021 12:28 AM Care Teams Software Systems Architect Relationship Specialty Start Date End Date Marisel To MD [address] [place] [address] PCP - General 10/10/21 Juancho Ramires MD [address] [place] [facility] [address] [place] [id number] Cardiovascular Disease 10/09/21
--- OUTSIDE RECORDS SUMMARY | 2025-03-14 06:06 | XMS_ITS ---
Author Name [facility] Organization Unknown Encounters Encounter Type Encounter Reason Primary Diagnosis Location Date Ambulatory [facility] 11/09/2021 Ambulatory [facility] 11/09/2021 Inpatient Other disorder o f circulatory system [place] [employer] 10/08/2021 Care Team Organization Name Specialty Phone Email Start Date End Da te [facility] [employer] MARISEL TO Primary Care 11/09/2021 02/09/20 [facility] Marisel To Primary Care 10/08/2021 11/10/19 [facility] [employer] 10/08/2021 10/08/2021
[2025-03-14 10:43] LABS: Hemoglobin A1C 255.3256 umol/L; Total Hemoglobin (HGBA1C) 3956.0489 umol/L
[2025-03-14 10:50] LABS: Alanine Aminotransferase 45 U/L (0-40); Albumin Level 4.2 g/dL (3.5-5.0); Alkaline Phosphatase 53 U/L (39-117); Anion Gap 11 (12-20); Aspartate Amino Transferase 50 U/L (5-37); Blood Urea Nitrogen 13 mg/dL (9-16); Calcium 9.1 mg/dL (8.4-10.2); Carbon Dioxide 25 mmol/L (22-29); Chloride 99 mmol/L (96-108); Cholesterol 83 mg/dL (<200); Estimated Glomerular Filt Rate > 60; HDL Cholesterol 38 mg/dL (>40); Potassium 4.3 mmol/L (3.3-5.1); Sodium 131 mmol/L (135-145); Total Protein 6.9 g/dL (6.5-8.0); Triglycerides 83 mg/dL (<150)
[2025-03-14 11:03] LABS: PSA,Total (Free>4and<10) 1.18 ng/mL (0.00-4.00)
[2025-03-14 11:25] LABS: Microalbum/Creatinine Ratio Ur 15.8 ug/mg cr (<30)
== END 2025-03-14 06:03 | disposition home or self-care (01) ==
LOC: HO.HMGCLDS 06:02
PROVIDERS: PCP Internal Medicine; Visit Provider Internal Medicine
DX: Z12.5 Encounter for screening for malignant neoplasm of prostate (principal); E78.5 Hyperlipidemia, unspecified; E11.9 Type 2 diabetes mellitus without complications; I10 Essential (primary) hypertension
CPT/HCPCS: 36415; 80053; 80061; 82043; 82570; 83036; 84153

== ENCOUNTER 2025-03-21 06:05 | Outpatient (REF) | payer MEDICARE, SELFPAY ==
--- OUTSIDE RECORDS SUMMARY | 2025-03-21 06:07 | XMS_ITS | Clinical Summary ---
Author Organization [facility] Address [address] [place] [address] Care Team Providers Care Payroll Auditor Name Role Phone Juancho Ramires MD Unavailable [phone] Marisel To MD Primary Care Provider [phone] Allergies Active Allergy Reactions Criticality Noted Date [...] Inactivated Comments 10/09/2021 12:28 AM Care Teams Payroll Auditor Relationship Specialty Start Date End Date Marisel To MD [address] [place] [address] PCP - General 10/10/21 Juancho Ramires MD [address] [place] [facility] [address] [place] [id number] Cardiovascular Disease 10/09/21
[2025-03-21 10:31] LABS: Anion Gap 12 (12-20); Blood Urea Nitrogen 13 mg/dL (9-16); Calcium 8.9 mg/dL (8.4-10.2); Carbon Dioxide 24 mmol/L (22-29); Chloride 102 mmol/L (96-108); Estimated Glomerular Filt Rate > 60; Potassium 4.1 mmol/L (3.3-5.1); Sodium 134 mmol/L (135-145)
== END 2025-03-21 06:06 | disposition home or self-care (01) ==
LOC: HO.HMGCLDS 06:05
PROVIDERS: PCP Internal Medicine; Visit Provider Internal Medicine
DX: E87.1 Hypo-osmolality and hyponatremia (principal)
CPT/HCPCS: 36415; 80048

== ENCOUNTER 2025-03-22 09:40 | Outpatient (AMB) | payer MEDICARE, SELFPAY ==
--- OUTSIDE RECORDS SUMMARY | 2025-03-22 10:32 | XMS_ITS | Clinical Summary ---
Author Organization [facility] Address [address] [place] [address] Care Team Providers Care Roofer Gypsum Name Role Phone Juancho Ramires MD Unavailable [phone] Marisel To MD Primary Care Provider [phone] Allergies Active Allergy Reactions Criticality Noted Date [...] Inactivated Comments 10/09/2021 12:28 AM Care Teams Roofer Gypsum Relationship Specialty Start Date End Date Marisel To MD [address] [place] [address] PCP - General 10/10/21 Juancho Ramires MD [address] [facility] [address] [place] [id number] Cardiovascular Disease 10/09/21
--- NOTE | 2025-03-22 10:45 | MHC.PC.OV ---
Vital Signs 03/22/25 10:46 Height 6 ft Weight 190 lb BMI 25.8 BP 126/60 Blood Pressure Location Rt brachial Position Sitting Respiration 18 Pulse 79 Pulse Source Pulse Oximeter Temp 97.8 F Temp Source Oral Pulse Oximetry (%) 95 Oxygen Delivery Method Room Air Intake Visit Reasons: 4 months f/up Intake Note: Pt is here today for 4 months follow up visit. Pt states that he was on 2 different antibiotics and he finished the last antibiotic about 10 days ago. Allergies amoxicillin (AMOXICILLIN) Allergy (Severe, Verified 03/22/25 10:47) VOMITING Sulfa (Sulfonamide Antibiotics) (SULFA (SULFONAMIDE ANTIBIOTICS)) Allergy (Severe, Verified 03/22/25 10:47) HIVES losartan Allergy (Intermediate, Verified 03/22/25 10:47) hyperkalemia moxifloxacin (From Avelox) Allergy (Unknown, Verified 03/22/25 10:47) Pt does not remeber lisinopril Adverse Reaction (Intermediate, Verified 03/22/25 10:47) cough metformin Adverse Reaction (Intermediate, Verified 03/22/25 10:47) Diarrhea pravastatin Adverse Reaction (Intermediate, Verified 03/22/25 10:47) diarrhea sitagliptin (Januvia) Adverse Reaction (Intermediate, Verified 03/22/25 10:47) stomach upset Medication List - Last Reconciled 03/22/25 by Marisel To MD amlodipine 10 mg PO DAILY aspirin 81 mg PO DAILY bisoprolol-hydrochlorothiazide 10-6.25 mg 1 tab PO DAILY blood sugar diagnostic (OneTouch Ultra Test strips) test blood sugar 3 times a day blood-glucose meter (PresentationTubeTouch Ultra2 Meter) As directed dulaglutide (Trulicity) 4.5 mg (0.5 mL) subcut QWEEK [fish oil 1,000 mg daily] wlqrrvnnmbl-fkluofsht-twhfvjxj 100-62.5-25 mcg (Trelegy Ellipta) 1 ea inhalation DAILY insulin glargine (Basaglar KwikPen U-100 Insulin) 48 units (0.48 mL) subcut QAM lansoprazole 30 mg PO DAILY losartan 50 mg PO DAILY omega-3 fatty acids (Fish Oil Concentrate) 1,000 mg PO DAILY pen needle, diabetic 1 qd rosuvastatin 20 mg PO DAILY sildenafil (Viagra) 100 mg PO DAILY PRN triamcinolone acetonide 0.1% 1 appl topical DAILY Tobacco use date assessed: 03/22/25 Fall risk assessment: No Falls in past year Last assessed Fall Risk: 03/22/25 Dental Screening Dental Screen Date: 11/10/24 HPI 4 months f/up HPI Details Pt presents for f/u HTN, DM 2, COPD, hyperlipid, stable on meds. 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 Mother No problems noted. Daughter No problems noted. Brother Myocardial infarction Social History Household Members: Family Household Members Other:: older daughter, grand daughter 9 yr old Housing: House Are you a primary hospice home care coordinator to a significant other at home: No Do you presently have visiting nurse or other home services: No Alcohol intake: never Patient Tobacco Use Status: Former Tobacco user Cigarette Packs Per Day: 2.5 Years Smoked: 30 Packs Per Year: 75 e-Cigarette/Vaping Use: Never Used Second Hand Smoke Exposure: No service: No Current occupational status: retired Current occupational exposures/hazards: No Cognitive needs: No Hearing needs: Yes Vision needs: No Questionnaire PHQ-9 Over the last 2 weeks, how often have you been bothered by any of the following problems? 1. Little interest or pleasure in doing things: not at all 2. Feeling down, depressed, or hopeless: not at all 3. Trouble falling or staying asleep, or sleeping too much: not at all 4. Feeling tired or having little energy: not at all 5. Poor appetite or overeating: not at all 6. Feeling bad about yourself - or that you are a failure or have let yourself or your family down: not at all 7. Trouble concentrating on things, such as reading the newspaper or watching television: not at all 8. Moving or speaking so slowly that other people could have noticed. Or the opposite - being so fidgety or restless that you have been moving around a lot more than usual: not at all 9. Thoughts that you would be better off or of hurting yourself in some way: not at all Total score: 0 Depression Screening Interpretation: Negative Depression Screening Done: Yes Source: Developed by Drs. Constantino Simeon, Aixa Rivera, Michael Beavers and colleagues, with an educational shakir from [employer]. Thrive Questionnaire Date Thrive assessed: 07/13/24 I am a: Patient What is your living situation today?: I have a steady place to live Within the past 12 months, did the food you bought not last and you didn't have the money to get more?: Often true Within the past 12 months, did you worry whether your food would run out before you got money to buy more?: Often true Do you have trouble paying for medicines?: Yes Do you have trouble getting transportation to medical appointments?: No Do you have trouble paying your heating and electricity bill?: No Do you have trouble taking care of your child, family member or friend?: No Do you have trouble with day-to-day activities such as bathing, preparing meals, shopping, managing finances, etc.?: I choose not to answer this question Are you currently unemployed and looking for a job?: I choose not to answer this question Are you interested in more education?: I choose not to answer this question Please select the resources that you would like help with: None Currently or been in a relationship where the following occur: I choose not to answer THRIVE Score: 2 SINA-7 AMB Questionnaire SINA-7 Date SINA - 7 assessed: 03/22/25 Feeling nervous, anxious, or on edge: 0 = Not at all Not being able to stop or control worryin = Not at all Worrying too much about different things: 0 = Not at all Trouble relaxin = Not at all Being so restless that it is hard to sit still: 0 = Not at all Becoming easily annoyed or irritable: 0 = Not at all Feeling afraid as if something awful might happen: 0 = Not at all Total SINA-7 score (0-4 normal; 5-9 mild; 10-14 moderate; 15-21 severe): 0 Source: Developed by Drs. Constantino Simeon, Aixa Rivera, Michael Beavers and colleagues, with an educational shakir from [employer]. Review of Systems Const All systems reviewed & are unremarkable except as noted in HPI and below Eyes Reports no additional complaints ENT Reports no additional complaints Card Reports no additional complaints Resp Reports no additional complaints GI Reports no additional complaints Reports no additional complaints Physical exam (Primary Care) Vital Signs: Last Vital Signs Temp 97.8 F 03/22/25 10:46 Pulse 79 03/22/25 10:46 Resp 18 03/22/25 10:46 BP 126/60 03/22/25 10:46 Pulse Ox 95 03/22/25 10:46 Oxygen Delivery Method Room Air 03/22/25 10:46 BMI result Body Mass Index 25.8 Tobacco/Smoking Status: Tobacco use Status Tobacco use date assessed 03/22/25 03/22/25 10:49 Patient Tobacco Use Status Former Tobacco user 03/22/25 10:46 e-Cigarette/Vaping Use Never Used 03/22/25 10:46 PHQ-9: PHQ-9 Score PHQ-9: Total score 0 03/22/25 11:09 Depression Screening Interpretation: Negative Thrive Assessment: Date of Thrive Assessment Date Thrive assessed 07/13/24 03/22/25 10:46 Currently or been in a relationship where the following occur: I choose not to answer Const General: no acute distress HENMT Head: Yes normal to inspection Ears: hearing grossly normal bilaterally Mouth: Normal oral and palatal mucosa present Throat: Yes posterior oropharynx normal Eyes General: appearance normal, both eyes and all related structures Neck Neck: Yes no lymphadenopathy and Yes supple Resp Effort & Inspection: normal respiratory effort Auscultation: clear to auscultation bilaterally Cardio Rhythm: regular rhythm Heart sounds: S1 normal heart sound present and S2 normal heart sound present GI Inspection: Yes normal to inspection Palpation (GI): Soft to palpation Percussion: Yes normal to percussion Auscultation: normal bowel sounds Coding Level of Care Code Est Pt Level 4 (58774) Diagnoses COPD (chronic obstructive pulmonary disease) J44.9 Diabetes E11.9 HTN (hypertension) I10 Hyperlipidemia E78.5 Assessment & Plan Assessment & Plan (1) COPD (chronic obstructive pulmonary disease): Comment: Follow-up with pulmonology Code(s): J44.9 - Chronic obstructive pulmonary disease, unspecified Category: Medical Plan: cont Trelegy (2) Diabetes: Code(s): E11.9 - Type 2 diabetes mellitus without complications Category: Medical Plan: A1C 8.1, ADA diet, regular exercise, cont Insulin, Trulicity. Pt declined changing to Mounjaro, f/u 3 months (3) HTN (hypertension): Code(s): I10 - Essential (primary) hypertension Category: Medical Plan: cont meds (4) Hyperlipidemia: Code(s): E78.5 - Hyperlipidemia, unspecified Category: Medical Plan: cont statin Orders: Orders Microalbumin, Random (w Creat) 3 Months E11.9 - Type 2 diabetes mellitus without complications, E78.5 - Hyperlipidemia, unspecified, I10 - Essential (primary) hypertension, J44.9 - Chronic obstructive pulmonary disease, unspecified Comprehensive [place]. Panel Fast 3 Months E11.9 - Type 2 diabetes mellitus without complications, E78.5 - Hyperlipidemia, unspecified, I10 - Essential (primary) hypertension, J44.9 - Chronic obstructive pulmonary disease, unspecified Hemoglobin A1c 3 Months E11.9 - Type 2 diabetes mellitus without complications, E78.5 - Hyperlipidemia, unspecified, I10 - Essential (primary) hypertension, J44.9 - Chronic obstructive pulmonary disease, unspecified Complete Blood Count Auto Diff 3 Months E11.9 - Type 2 diabetes mellitus without complications, E78.5 - Hyperlipidemia, unspecified, I10 - Essential (primary) hypertension, J44.9 - Chronic obstructive pulmonary disease, unspecified Lipid Panel 3 Months E11.9 - Type 2 diabetes mellitus without complications, E78.5 - Hyperlipidemia, unspecified, I10 - Essential (primary) hypertension, J44.9 - Chronic obstructive pulmonary disease, unspecified Medications: Changed From insulin glargine (Basaglar KwikPen U-100 Insulin) 48 units (0.48 mL) subcut QAM 45 mL 1RF E11.9 - Type 2 diabetes mellitus without complications To Laney Beckford U-100 Insulin (insulin glargine) 48 units (0.48 mL) subcut QAM 45 mL 3RF NS E11.9 - Type 2 diabetes mellitus without complications Refilled bisoprolol-hydrochlorothiazide 10-6.25 mg 1 tab PO DAILY 90 tabs 3RF pen needle, diabetic 1 qd 100 ea 3RF yfqymszkyqn-mwqgivxgt-aqtiyxnl 100-62.5-25 mcg (Trelegy Ellipta) 1 ea inhalation DAILY 180 ea 3RF lansoprazole 30 mg PO DAILY 90 caps 3RF
[2025-03-22 10:46] VITALS: BP 126/60; PULSE 79; RESP 18; TEMP 36.6; O2SAT 95; BMI 25.8
== END 2025-03-22 12:43 | disposition home or self-care (01) ==
LOC: HO.HMCC 09:41
PROVIDERS: PCP Internal Medicine; Visit Provider Internal Medicine
DX: J44.9 Chronic obstructive pulmonary disease, unspecified (principal); E11.9 Type 2 diabetes mellitus without complications; I10 Essential (primary) hypertension; E78.5 Hyperlipidemia, unspecified

== ENCOUNTER → 2025-03-22 09:40 | Outpatient (BNVA) | payer MEDICARE, SELFPAY | PROVIDERS: PCP Internal Medicine; Visit Provider Internal Medicine | DX: I10 Essential (primary) hypertension (principal); E11.9 Type 2 diabetes mellitus without complications; E78.5 Hyperlipidemia, unspecified; J44.9 Chronic obstructive pulmonary disease, unspecified | CPT/HCPCS: 96127; 99212 ==